=== PATIENT | male | born 1935 | race Caucasian/White ===

== ENCOUNTER 2016-05-13 14:40 | Inpatient (IN) | payer OTHER ==
[~2016-05-13] VITALS: Ht 193 cm; Wt 104.0 kg
[~2016-05-13 14:40] MED LIST: CHOL100010 PO; CYAN100T6 PO; MULTTAB58 PO
[2016-05-13] MEDS ORDERED: CHOL100027 PO (16:18)
[2016-05-13 16:47] LABS: BASO % 0.2 %; BASO ABS # 0.03 K/uL (0-0.2); COMPLETE YES; EOS % 0.2 %; HEMATOCRIT 47.5 % (42-52); IG% 0.2 %; LYMPH % 9.7 %; LYMPH ABS # 1.22 K/uL (1.2-3.4); MEAN CELL VOLUME 93.1 fL (80-100); MEAN CORPUSCULAR HEMOGLOBIN 31.4 pg (25-34); MEAN CORPUSCULAR HGB CONC 33.7 g/dl (32-36); MEAN PLATELET VOLUME 10.1 fL (7.4-10.4); MONO % 8.6 %; NEUT % 81.1 %; PLATELET COUNT 210 K/uL (130-400); WHITE BLOOD COUNT 12.61 K/uL (4.8-10.8)
[2016-05-13 16:56] LABS: PROTHROMBIN TIME (PATIENT) 11.2 SECONDS (9.0-12.0)
[2016-05-13] MEDS ORDERED: CIPROFLOXACIN 500 MG TAB PO STA (17:01)
[2016-05-13 17:06] LABS: BUN/CREATININE RATIO 8.4 (10-20); CALCIUM 9.2 mg/dl (8.5-10.1); CREATININE 2.5 mg/dl (0.60-1.40); POTASSIUM 4.4 mmol/L (3.5-5.1)
[2016-05-13] MEDS ORDERED: PIPERACILLIN/TAZOBACTAM 4.5 GM/100ML D5W IV STA ×2 (18:06→18:53)
--- NOTE | 2016-05-13 18:20 | EMERGENCY ROOM VISIT NOTE ---
History Report prepared by Ludwig: Corbin Juarez Under the Supervision of: Dr. Waldemar Moore M.D. First contact with patient: 14:54 Chief Complaint: UNABLE TO VOID Stated Complaint: UNABLE TO URINATE History of Present Illness The patient is a 80 year old male who presents to the Emergency Room with complaints of persistent lower abdominal pain and distention starting today. The patient has a Richard catheter in place due to an enlarged prostate. Today, the catheter became blocked. Upon arrival to the Emergency Room, he was found to have minimal bloody urine in the bag. He currently only complains of abdominal pain and distention. Pt denies LOC, headache, fevers, chills, diaphoresis, visual changes, neck pain, chest pain, breathing difficulties, nausea, vomiting, back pain, melena, hematochezia, numbness, weakness, lymphadenopathy, rash, or other complaints. Source of History: patient Onset: today Position: abdomen (lower) Quality: other (distention) Timing: other (persistent) Review of Systems See HPI for pertinent positives and negatives. A total of ten systems were reviewed and were otherwise negative. 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 Social History Smoking Status: Never Smoker Alcohol Use: none Drug Use: none Marital Status: Housing Status: lives with family Occupation Status: retired Current/Historical Medications Scheduled Cholecalciferol (Vitamin D 1000 Unit), 1,000 INTER.UNIT PO DAILY Cyanocobalamin (Vitamin B12 100 Mcg), 100 MCG PO DAILY Multiple Vitamin (Multivitamin), 1 TAB PO DAILY Allergies Coded Allergies: No Known Allergies (Unverified , 06/30/15) Physical Exam Vital Signs Date Time Temp Pulse Resp B/P Pulse Ox O2 Delivery O2 Flow Rate FiO2 05/13/16 17:24 96 20 176/109 96 Room Air 05/13/16 16:33 95 16 168/111 98 05/13/16 14:50 36.9 124 18 190/111 94 Physical Exam GENERAL: Awake, alert, uncomfortable-appearing, in no distress HENT: Normocephalic, atraumatic. Oropharynx unremarkable. EYES: Normal conjunctiva. Sclera non-icteric. NECK: Supple. No nuchal rigidity. FROM. No JVD. RESPIRATORY: Clear to auscultation. CARDIAC: Borderline tachycardic rate, normal rhythm. Extremities warm and well perfused. Pulses equal. ABDOMEN: Soft. Distended. No tenderness to palpation. No rebound or guarding. No masses. : Richard catheter in place. MUSCULOSKELETAL: Chest examination reveals no tenderness. The back is symmetrical on inspection without obvious abnormality. There is no CVA tenderness to palpation. No joint edema. LOWER EXTREMITIES: Calves are equal size bilaterally and non-tender. No edema. No discoloration. NEURO: Normal sensorium. No sensory or motor deficits noted. SKIN: No rash or jaundice noted. Medical Decision & Procedures Laboratory Results 05/13/16 16:25 Red Blood Count 5.10, Mean Corpuscular Volume 93.1, Mean Corpuscular Hemoglobin 31.4, Mean Corpuscular Hemoglobin Concent 33.7, Mean Platelet Volume 10.1, Neutrophils (%) (Auto) 81.1, Lymphocytes (%) (Auto) 9.7, Monocytes (%) (Auto) 8.6, Eosinophils (%) (Auto) 0.2, Basophils (%) (Auto) 0.2, Neutrophils # (Auto) 10.23, Lymphocytes # (Auto) 1.22, Monocytes # (Auto) 1.09, Eosinophils # (Auto) 0.02, Basophils # (Auto) 0.03 05/13/16 16:25 Test 05/13/16 16:25 White Blood Count 12.61 K/uL (4.8-10.8) Red Blood Count 5.10 M/uL (4.7-6.1) Hemoglobin 16.0 g/dL (14.0-18.0) Hematocrit 47.5 % (42-52) Mean Corpuscular Volume 93.1 fL (80-100) Mean Corpuscular Hemoglobin 31.4 pg (25-34) Mean Corpuscular Hemoglobin Concent 33.7 g/dl (32-36) Platelet Count 210 K/uL (130-400) Mean Platelet Volume 10.1 fL (7.4-10.4) Neutrophils (%) (Auto) 81.1 % Lymphocytes (%) (Auto) 9.7 % Monocytes (%) (Auto) 8.6 % Eosinophils (%) (Auto) 0.2 % Basophils (%) (Auto) 0.2 % Neutrophils # (Auto) 10.23 K/uL (1.4-6.5) Lymphocytes # (Auto) 1.22 K/uL (1.2-3.4) Monocytes # (Auto) 1.09 K/uL (0.11-0.59) Eosinophils # (Auto) 0.02 K/uL (0-0.5) Basophils # (Auto) 0.03 K/uL (0-0.2) RDW Standard Deviation 42.8 fL (36.4-46.3) RDW Coefficient of Variation 12.5 % (11.5-14.5) Immature Granulocyte % (Auto) 0.2 % Immature Granulocyte # (Auto) 0.02 K/uL (0.00-0.02) Prothrombin Time 11.2 SECONDS (9.0-12.0) Prothromb Time International Ratio 1.0 (0.9-1.1) Activated Partial Thromboplast Time 27.0 SECONDS (21.0-31.0) Partial Thromboplastin Ratio 1.0 Anion Gap 8.0 mmol/L (3-11) Est Creatinine Clear Calc Drug Dose 28.4 ml/min Estimated GFR () 26.9 Estimated GFR (Non- 23.2 BUN/Creatinine Ratio 8.4 (10-20) Calcium Level 9.2 mg/dl (8.5-10.1) Total Bilirubin 0.8 mg/dl (0.2-1) Direct Bilirubin 0.2 mg/dl (0-0.2) Aspartate Amino Transf (AST/SGOT) 23 U/L (15-37) Alanine Aminotransferase (ALT/SGPT) 27 U/L (12-78) Alkaline Phosphatase 83 U/L (45-117) Total Protein 7.6 gm/dl (6.4-8.2) Albumin 3.6 gm/dl (3.4-5.0) Laboratory results reviewed by ks ED Course 1454: The patient was evaluated in room B03B. A complete history and physical exam was performed. 1515: The patient is having catheter irrigated by nursing staff. There are fairly thick clots and red blood/urine being expressed. The patient feels significantly better. 1600: The nursing staff initiated CBI, urine is finally starting to clear. The patient is feeling better. 1624: I reevaluated the patient who does not want to be hospitalized. 1658: I discussed the patient's case with EVERARDO Matias urology with [facility]. She will arrange an appointment for him at the clinic. 1701: Cipro Tab 500 mg PO Medical Decision Triage Nursing notes reviewed. The patient's presentation and history were concerning for hematuria and inability to void. Etiologies such as UTI, catheter malfunction, malignancy, renal insufficiency, infection, obstruction, renal colic, aortic pathology, i as well as others were entertained. The patient was evaluated. He was very uncomfortable. His catheter was irrigated. He had significant hematuria present. With removal of clots by nursing he felt significantly better. His discomfort resolved. The patient had a urinalysis and blood work ordered. He had a slight leukocytosis. Chem panel was unremarkable. The patient had a larger catheter placed as he was climbing off the smaller catheter. He underwent continuous bladder irrigation and was doing relatively well with this. Patient was given a dose of oral Cipro. Cultures were reviewed and he was also given a dose of IV Zosyn. The patient did not want stay in the hospital. I did consult with urology to possibly set up a follow-up appointment although the patient would be best served by staying. I had case management and nursing to eat with the patient after I did to try and help him get assistance with his at home. That is his concern about staying. There is no one to take care of her. This process is currently underway. His disposition will be dependent upon case management success with care of his . His case was signed out to Dr. Singletary at the change of shift. The chart was completed utilizing [employer] Speech voice recognition software. Grammatical errors, random word insertions, pronoun errors, and incomplete sentences are an occasional consequence of this system due to software limitations, ambient noise, and hardware issues. Any formal questions or concerns about the content, text, or information contained within the body of this dictation should be directly addressed to the physician for clarification. Consults Time Called: 1624 Consulting Physician: EVERARDO Matias urology with [facility] Returned Call: 1658 I discussed the patient's case with EVERARDO Matias urology with [facility]. She will arrange an appointment for him at the clinic. Impression Primary Impression: Urinary retention Additional Impression: Hematuria Scribe Attestation The scribe's documentation has been prepared under my direction and personally reviewed by me in its entirety. I confirm that the note above accurately reflects all work, treatment, procedures, and medical decision making performed by me. Departure Information Dispostion Still a Patient Referrals No Doctor, Assigned (PCP) Patient Instructions My [facility] Problem Qualifiers
[2016-05-13 19:17] LABS: MANUAL MICROSCOPIC REQUIRED? YES; URINE APPEARANCE TURBID (CLEAR); URINE BILIRUBIN NEG (NEG); URINE COLOR RED; URINE NITRITE NEG (NEG); URINE PH 6.5 (4.5-7.5); UROBILINOGEN NEG (NEG)
[2016-05-13 19:18] LABS: REVIEW REQ? NO
[2016-05-13 19:22] LABS: URINE BACTERIA NEG (NEG); URINE RBC >30 /hpf (0-4)
--- NOTE | 2016-05-13 20:11 | EMERGENCY ROOM VISIT NOTE ---
ED Visit Note First contact with patient: 18:52 I received this patient at change of shift signout from Dr. ZIMMERMAN. Please see his note for complete history and physical. The patient is an 80-year-old male who presented to the emergency department with severe hematuria. He had continuous bladder irrigation started by the previous physician. He was reevaluated multiple times. He continued to have significant hematuria. His case was discussed with the on-call urologist. They've recommended continuous bladder irrigation. The patient doesn't a history of previous urine infections which are very resistant to all antibiotics. The patient was started on IV Zosyn in the emergency department. He was reevaluated multiple times. He was felt to be a candidate for inpatient admission and management however he was very concerned because his significant other would need help. Utilizing the emergency Department spring encaser the patient's significant other was able to get home health and nursing to come and help with her activities. I discussed the patient's case with the on-call [facility] hospitalist group. They've agreed to evaluate the patient in emergency department for further management and disposition.
[2016-05-13] MEDS ORDERED: ALUMINUM/MAGNESIUM/SIMETH (MAALOX MAX) 30 ML UDC PO PRN (20:30)
[2016-05-13] MEDS ORDERED: ONDANSETRON INJ 2 MG/ML 2 ML VIAL IV PRN (20:30)
[2016-05-13] MEDS ORDERED: PNEUMOCOCCAL POLYSACCHARIDES 25 MCG/0.5 ML VIAL/SYR IM. ONE (20:30)
[2016-05-13] MEDS ORDERED: INFLUENZA VIRUS QUAD VACCINE 0.5 ML SYR IM. ONE (20:30)
[2016-05-13] MEDS ORDERED: MAGNESIUM HYDROXIDE SUSP 30 ML UDC PO PRN (20:30)
[2016-05-13] MEDS ORDERED: NITROGLYCERIN 0.4 MG SL PER TAB CHARGE SL PRN (20:30)
[2016-05-13] MEDS ORDERED: PNEUMOCOCCAL ADMINISTRATION CHARGE ONE (20:31)
[2016-05-13] MEDS ORDERED: INFLUENZA ADMINISTRATION CHARGE ONE (20:31)
[2016-05-13 21:43] VITALS: Ht 193 cm; Wt 104.0 kg
[2016-05-13 22:10] VITALS: BP 154/84; PULSE 93; TEMP 36.7; O2SAT 94
--- NOTE | 2016-05-13 22:15 | History and Physical ---
History & Physical Date & Time of Service: May 13, 2016 at 22:05 Chief Complaint: Hematuria Primary Care Physician: No Doctor, Assigned History of Present Illness Source: patient This is an 80 yo m that is presenting to us with hematuria and urinary retention with grullon. He states that because of his BPH he has arranged with a Rich RN to come in on a monthly basis to have a grullon changed. He states he has been on no medications for his BPH and does not follow with a PCP or urologist. [facility] He states that Yesterday her started to have some hematuria and this morning it worsened as well as urinary retention and lower abdominal pain. He was seen in the ED and the grullon was clogged because of clots. Uroology was contacted and a CBI was started. It was decided that patient would be admitted for further evaluation. He mentioned repeatedly that he has a that he completely cares for because of a brain tumor. He has a lot of concerns about being in the hospital because of no one being able to care for her. Case management was able to arrange some home health. 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 Social History Smoking Status: Never Smoker Smokeless Tobacco Use: No Alcohol Use: none Drug Use: none Marital Status: Housing status: lives with family Occupational Status: retired Immunizations History of Influenza Vaccine: No History of Tetanus Vaccine?: No History of Pneumococcal: Yes Pneumococcal Date: August 28, 2009 History of Hepatitis B Vaccine: No Allergies Coded Allergies: No Known Allergies (Unverified , 06/30/15) Home Medications Scheduled Cholecalciferol (Vitamin D 1000 Unit), 1,000 INTER.UNIT PO DAILY Cyanocobalamin (Vitamin B12 100 Mcg), 100 MCG PO DAILY Multiple Vitamin (Multivitamin), 1 TAB PO DAILY Review of Systems Constitutional: No fever Eyes: No worsening of vision ENT: No hearing loss Respiratory: No cough, No dyspnea at rest, No dyspnea on exertion, No shortness of breath, No sputum, No wheezing Cardiovascular: No chest pain Abdomen: No constipation, No diarrhea, No nausea, No pain, No vomiting Musculoskeletal: No joint pain, No muscle pain Genitourinary - Male: + hematuria, + urinary retention Neurologic: No balance problems, No numbness/tingling, No weakness Psychiatric: No depression symptoms Endocrine: No fatigue Integumentary: No rash Physical Exam Vital Signs Date Time Temp Pulse Resp B/P Pulse Ox O2 Delivery O2 Flow Rate FiO2 05/13/16 21:43 Room Air 05/13/16 21:14 78 20 134/82 96 Room Air 05/13/16 19:00 77 20 130/82 96 Room Air 05/13/16 18:26 78 20 113/92 96 Room Air 05/13/16 17:24 96 20 176/109 96 Room Air 05/13/16 16:33 95 16 168/111 98 05/13/16 14:50 36.9 124 18 190/111 94 General Appearance: WD/WN, no apparent distress Head: normocephalic, atraumatic Eyes: normal inspection ENT: normal ENT inspection Neck: supple Respiratory/Chest: lungs clear, normal breath sounds, no respiratory distress, no accessory muscle use Cardiovascular: regular rate, rhythm, no murmur Abdomen/GI: normal bowel sounds, non tender, soft Back: normal inspection Extremities/Musculoskelatal: no calf tenderness, no pedal edema Neurologic/Psych: alert, normal mood/affect, oriented x 3 Skin: normal color, warm/dry, + rash Lymphatic: no adenopathy Diagnostics Laboratory Results Results Past 24 Hours Test 05/13/16 16:25 05/13/16 17:35 Range/Units White Blood Count 12.61 4.8-10.8 K/uL Red Blood Count 5.10 4.7-6.1 M/uL Hemoglobin 16.0 14.0-18.0 g/dL Hematocrit 47.5 42-52 % Mean Corpuscular Volume 93.1 80-100 fL Mean Corpuscular Hemoglobin 31.4 25-34 pg Mean Corpuscular Hemoglobin Concent 33.7 32-36 g/dl Platelet Count 210 130-400 K/uL Mean Platelet Volume 10.1 7.4-10.4 fL Neutrophils (%) (Auto) 81.1 % Lymphocytes (%) (Auto) 9.7 % Monocytes (%) (Auto) 8.6 % Eosinophils (%) (Auto) 0.2 % Basophils (%) (Auto) 0.2 % Neutrophils # (Auto) 10.23 1.4-6.5 K/uL Lymphocytes # (Auto) 1.22 1.2-3.4 K/uL Monocytes # (Auto) 1.09 0.11-0.59 K/uL Eosinophils # (Auto) 0.02 0-0.5 K/uL Basophils # (Auto) 0.03 0-0.2 K/uL RDW Standard Deviation 42.8 36.4-46.3 fL RDW Coefficient of Variation 12.5 11.5-14.5 % Immature Granulocyte % (Auto) 0.2 % Immature Granulocyte # (Auto) 0.02 0.00-0.02 K/uL Prothrombin Time 11.2 9.0-12.0 SECONDS Prothromb Time International Ratio 1.0 0.9-1.1 Activated Partial Thromboplast Time 27.0 21.0-31.0 SECONDS Partial Thromboplastin Ratio 1.0 Sodium Level 144 136-145 mmol/L Potassium Level 4.4 3.5-5.1 mmol/L Chloride Level 111 98-107 mmol/L Carbon Dioxide Level 25 21-32 mmol/L Anion Gap 8.0 3-11 mmol/L Blood Urea Nitrogen 21 7-18 mg/dl Creatinine 2.50 0.60-1.40 mg/dl Est Creatinine Clear Calc Drug Dose 28.4 ml/min Estimated GFR () 26.9 Estimated GFR (Non- 23.2 BUN/Creatinine Ratio 8.4 10-20 Random Glucose 92 70-99 mg/dl Calcium Level 9.2 8.5-10.1 mg/dl Total Bilirubin 0.8 0.2-1 mg/dl Direct Bilirubin 0.2 0-0.2 mg/dl Aspartate Amino Transf (AST/SGOT) 23 15-37 U/L Alanine Aminotransferase (ALT/SGPT) 27 12-78 U/L Alkaline Phosphatase 83 45-117 U/L Total Protein 7.6 6.4-8.2 gm/dl Albumin 3.6 3.4-5.0 gm/dl Urine Color RED Urine Appearance TURBID CLEAR Urine pH 6.5 4.5-7.5 Urine Specific [place] 1.020 1.000-1.030 Urine Protein 2+ NEG Urine Glucose (UA) NEG NEG Urine Ketones NEG NEG Urine Occult Blood 3+ NEG Urine Nitrite NEG NEG Urine Bilirubin NEG NEG Urine Urobilinogen NEG NEG Urine Leukocyte Esterase TRACE NEG Urine RBC >30 0-4 /hpf Urine WBC 1-5 0-5 /hpf Urine Epithelial Cells 0-5 0-5 /lpf Urine Bacteria NEG NEG Microbiology Results 05/13/16 Urine Culture, Received Pending Impression Assessment and Plan This is an 80 yo m with chronic grullon use that is presenting to us with hematuria Hematuria secondary to malignancy vs trauma - CBI cont'd - med surg admission - HH q 6 - consult urology - renal USG - follow BMP - NPO after midnight Leukocytosis potentially secondary to stress response - repeat CBC in am BPH - Urology has been consulted DVT Prophylaxis SCD FULL CODE Advanced Directives Existing Living Will: No Existing Power of Nnp: No Resuscitation Status FULL RESUSCITATION VTE Prophylaxis VTE Risk Assessment Done? Y/N: Yes Risk Level: Moderate Given or contraindicated: SCD's Social Service Consult None Apply Note Total Time: Critical Care 30 - 74 minutes Assessment and Plan Attending Addendum: I have physically seen and examined this patient, have directed their medical care, have supervised the medical residents activities, and agree with the H&P as noted above, with the following changes: NONE The patient is awake, well-developed and adequately nourished, alert and oriented 3, normocephalic and atraumatic, lying in bed and in no acute distress. HEENT--PERRL, EOMI, mucous membranes and oropharynx moist. Neck--supple, no JVD or bruits, thyroid normal, trachea midline, no adenopathy. Heart--normal S1 and S2, no extra beats, no murmurs, rubs or gallops. Lungs--clear bilaterally with good air movement, no respiratory distress, no accessory muscle use. Abdomen--normal bowel sounds and soft, nontender and nondistended, no hernias or masses, no organomegaly. Extremities--no cyanosis, clubbing or edema. There are good distal pulses b/l. Dermatologic--normal skin turgor, normal color, warm and dry, no abnormal lymph nodes, no rash. Neurologic--cranial nerves II through XII grossly intact, motor and sensory examination normal. Rheumatologic--normal range of motion, nontender, muscles and joints. Urologic--Grullon catheter draining wandy blood. Psychiatric--normal affect. Assessment and Plan: Gross hematuria/ renal insufficiency/BPH/history of bladder neck obstruction/ chronic indwelling Grullon catheter--the patient will be admitted to the medical surgical floor for continuous bladder irrigation. Due to elevated white blood cell count, the patient will be placed on Zosyn IV. [facility], and visiting nurses through [place]. He would like to establish with a local urologist, we'll therefore consult Dr. Bill and the urologic group. He'll be kept nothing by mouth after midnight for any potential procedure such as cystoscopy that they may want to perform. Renal insufficiency repeat CBCD, BMP and magnesium in the a.m.
[2016-05-13 23:27] VITALS: BP 125/75; PULSE 101; TEMP 36.7; O2SAT 94
[2016-05-14] VITALS (9 sets, daily range): BP systolic 103–129; BP diastolic 56–74; PULSE 69–81; TEMP 36.7–37.2; O2SAT 93–99
[2016-05-14 01:21] LABS: CKMB/CK RATIO 2.4 (0-3.0)
[2016-05-14] MEDS: SODIUM CHLORIDE 0.9% 1000ML 1,000 ML IV SCH ×3 (02:45→19:01)
[2016-05-14] MEDS ORDERED: NURSING VERBAL MED ORDER ONE (02:45)
[2016-05-14 03:08] LABS: MEAN CELL VOLUME 93.6 fL (80-100); MEAN CORPUSCULAR HGB CONC 33.2 g/dl (32-36); MEAN PLATELET VOLUME 9.8 fL (7.4-10.4); PLATELET COUNT 203 K/uL (130-400); RED BLOOD COUNT 4.06 M/uL (4.7-6.1); WHITE BLOOD COUNT 13.21 K/uL (4.8-10.8)
[2016-05-14 03:24] LABS: BUN/CREATININE RATIO 9.5 (10-20); CALCIUM 8.1 mg/dl (8.5-10.1); CREATININE 2.4 mg/dl (0.60-1.40); POTASSIUM 4.5 mmol/L (3.5-5.1)
[2016-05-14 03:34] LABS: ALB/GLOB RATIO 0.9 (0.9-2)
--- NOTE | 2016-05-14 06:42 | DIAGNOSTIC IMAGING REPORT ---
EXAMINATION: RENAL ULTRASOUND CLINICAL HISTORY: hematuria COMPARISON STUDY: 08/25/2009 FINDINGS: The right kidney measures 10.9 cm. The left kidney measures 10.8 cm.. There is no evidence of hydronephrosis. There is an 11 mm slightly echogenic exophytic right renal mass. A dedicated renal CT scan is recommended in follow-up. There is a 12 mm lower pole left renal cyst. There is left renal cortical thinning. The left kidney is somewhat echogenic. Evaluation the bladder is limited due to an indwelling Richard catheter. The bladder wall appears thickened and there is possible debris within the bladder. IMPRESSION : 1. No evidence of hydronephrosis 2. 11 mm slightly echogenic exophytic right renal mass. A dedicated renal CT scan is recommended in follow-up 3. Left renal cortical thinning and increased cortical echogenicity 4. Decompressed bladder secondary to a Richard catheter. Bladder wall thickening with probable debris within the bladder Electronically signed by: Rony Hopkins M.D. 05/14/2016 6:40 AM Dictated Date/Time: 05/14/2016 6:38 AM
--- NOTE | 2016-05-14 07:50 | Clinical Documentation Query ---
CLINICAL DOCUMENTATION QUERY 80 year old male who presents to the Emergency Room with complaints of persistent lower abdominal pain and distention starting today. In your clinical opinion is this patient being managed for: ( ) CKD IV ( ) Other explanation of clinical findings (Please Explain) ( x ) Unable to determine (Please Define) NOT MY PATIENT, SEND TO DR. MCKEON ( ) Need to Discuss ( ) Not Agree The medical record reflects the following clinical findings, treatment, and risk factors. Clinical Indicators: H&P states CKD unspecified. Documenting the stage of CKD will improve data integrity and will help clarify vague terms such as "renal insufficiency" or "chronic renal failure." BUN 23, Creatinine 2.40, GFR 24.4. Treatment: IVF's, CBI, daily PRP's Risk Factors: Age, BPH, Please clarify and document your clinical opinion in the progress notes and discharge summary. Terms such as "probable", "suspected", "likely", "questionable", "possible", or "still to be ruled out" are acceptable. IF IN AGREEMENT, YOU MUST DOCUMENT ABOVE DIAGNOSTIC STATEMENT IN DAILY PROGRESS NOTES AND DISCHARGE SUMMARY. This document is not part of the patient's record. Thank You, Esteban Loomis, RN [phone]
[2016-05-14 08:32] LABS: HEMATOCRIT 36.3 % (42-52); MEAN CELL VOLUME 93.3 fL (80-100); MEAN CORPUSCULAR HEMOGLOBIN 30.6 pg (25-34); MEAN CORPUSCULAR HGB CONC 32.8 g/dl (32-36); MEAN PLATELET VOLUME 9.8 fL (7.4-10.4); PLATELET COUNT 198 K/uL (130-400); RED BLOOD COUNT 3.89 M/uL (4.7-6.1); WHITE BLOOD COUNT 11.28 K/uL (4.8-10.8)
--- NOTE | 2016-05-14 08:32 | Urology Consultation ---
History General Date of Service: May 14, 2016. Chief Complaint: Urinary retention, BPH, hematuria Primary Care Physician: No Doctor, Assigned Pt seen a urologist before?: Yes If yes, why?: Dr. Cheng for retention, 4-5 years ago History of Present Illness 80 yo male here for evaluation of gross hematuria. He notes he is seen at the [facility] intermittently but has been managed with chronic grullon. He notes he does not see a regular physician. He notes he is currently managed with a chronic grullon. He had seen Dr. Pierson once then lost to follow-up. He notes he took medications for his BPH in the past but "it was too strong." His prior consult for retention and aborted TURP are noted. His sparse inpatient notes are reviewed. 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 Ness in the past. Urology consultation is requested to assist with his care. HPI - Urinary Retention Sx Patient has: + grullon, + hematuria, + urinary retention Severity: severe HPI - Hematuria Hematuria: gross Associated Symptoms: retention Imaging Imaging: Ultrasound (renal US - no hydro, questionable renal mass) Laboratory Last 24 Hours Test 05/13/16 16:25 05/13/16 17:35 05/14/16 00:34 05/14/16 00:37 White Blood Count 12.61 K/uL Red Blood Count 5.10 M/uL Hemoglobin 16.0 g/dL Hematocrit 47.5 % Mean Corpuscular Volume 93.1 fL Mean Corpuscular Hemoglobin 31.4 pg Mean Corpuscular Hemoglobin Concent 33.7 g/dl Platelet Count 210 K/uL Mean Platelet Volume 10.1 fL Neutrophils (%) (Auto) 81.1 % Lymphocytes (%) (Auto) 9.7 % Monocytes (%) (Auto) 8.6 % Eosinophils (%) (Auto) 0.2 % Basophils (%) (Auto) 0.2 % Neutrophils # (Auto) 10.23 K/uL Lymphocytes # (Auto) 1.22 K/uL Monocytes # (Auto) 1.09 K/uL Eosinophils # (Auto) 0.02 K/uL Basophils # (Auto) 0.03 K/uL RDW Standard Deviation 42.8 fL RDW Coefficient of Variation 12.5 % Immature Granulocyte % (Auto) 0.2 % Immature Granulocyte # (Auto) 0.02 K/uL Prothrombin Time 11.2 SECONDS Prothromb Time International Ratio 1.0 Activated Partial Thromboplast Time 27.0 SECONDS Partial Thromboplastin Ratio 1.0 Sodium Level 144 mmol/L Potassium Level 4.4 mmol/L Chloride Level 111 mmol/L Carbon Dioxide Level 25 mmol/L Anion Gap 8.0 mmol/L Blood Urea Nitrogen 21 mg/dl Creatinine 2.50 mg/dl Est Creatinine Clear Calc Drug Dose 28.4 ml/min Estimated GFR () 26.9 Estimated GFR (Non- 23.2 BUN/Creatinine Ratio 8.4 Random Glucose 92 mg/dl Calcium Level 9.2 mg/dl Total Bilirubin 0.8 mg/dl Direct Bilirubin 0.2 mg/dl Aspartate Amino Transf (AST/SGOT) 23 U/L Alanine Aminotransferase (ALT/SGPT) 27 U/L Alkaline Phosphatase 83 U/L Total Protein 7.6 gm/dl Albumin 3.6 gm/dl Urine Color RED Urine Appearance TURBID Urine pH 6.5 Urine Specific [place] 1.020 Urine Protein 2+ Urine Glucose (UA) NEG Urine Ketones NEG Urine Occult Blood 3+ Urine Nitrite NEG Urine Bilirubin NEG Urine Urobilinogen NEG Urine Leukocyte Esterase TRACE Urine RBC >30 /hpf Urine WBC 1-5 /hpf Urine Epithelial Cells 0-5 /lpf Urine Bacteria NEG Bedside Glucose 146 mg/dl Total Creatine Kinase 182 U/L Creatine Kinase MB 4.4 ng/ml Creatine Kinase MB Ratio 2.4 Troponin I 0.016 ng/ml Pro-B-Type Natriuretic Peptide 588 pg/ml Test 05/14/16 02:55 05/14/16 04:44 05/14/16 08:00 White Blood Count 13.21 K/uL Red Blood Count 4.06 M/uL Hemoglobin 12.6 g/dL Hematocrit 38.0 % Mean Corpuscular Volume 93.6 fL Mean Corpuscular Hemoglobin 31.0 pg Mean Corpuscular Hemoglobin Concent 33.2 g/dl RDW Standard Deviation 43.3 fL RDW Coefficient of Variation 12.7 % Platelet Count 203 K/uL Mean Platelet Volume 9.8 fL Sodium Level 142 mmol/L Potassium Level 4.5 mmol/L Chloride Level 110 mmol/L Carbon Dioxide Level 24 mmol/L Anion Gap 8.0 mmol/L Blood Urea Nitrogen 23 mg/dl Creatinine 2.40 mg/dl Est Creatinine Clear Calc Drug Dose 29.6 ml/min Estimated GFR () 28.3 Estimated GFR (Non- 24.4 BUN/Creatinine Ratio 9.5 Random Glucose 136 mg/dl Calcium Level 8.1 mg/dl Total Bilirubin 0.9 mg/dl Aspartate Amino Transf (AST/SGOT) 16 U/L Alanine Aminotransferase (ALT/SGPT) 23 U/L Alkaline Phosphatase 58 U/L Total Protein 5.9 gm/dl Albumin 2.8 gm/dl Globulin 3.1 gm/dl Albumin/Globulin Ratio 0.9 Problem List Medical Problems: (1) Hematuria Status: Acute (2) Urinary retention Status: Acute Past History BPH, renal disease, urinary tract infection Past Surgical History: other (cysto) Family History Patient reports no known family medical history. Social History Hx Tobacco Use In Past Year?: Yes Smoking: non-smoker Alcohol: no current use Marital status: Housing status: lives with family Occupation status: retired Immunizations History of Influenza Vaccine: No History of Tetanus Vaccine?: No History of Pneumococcal: Yes Pneumococcal Date: August 28, 2009 History of Hepatitis B Vaccine: No Allergies Coded Allergies: No Known Allergies (Unverified , 06/30/15) Medications Home Medications: Home Meds and Scripts Medications Dose Route/Sig Max Daily Dose Days Date Category Vitamin D 1000 Unit (Cholecalciferol) 1,000 Unit Cap 1,000 Inter.unit PO DAILY 05/13/16 Reported Vitamin B12 100 Mcg (Cyanocobalamin) 100 Mcg Tab 100 Mcg PO DAILY 10/20/13 Reported Multivitamin (Multiple Vitamin) 1 Tab Tab 1 Tab PO DAILY 01/01/13 Reported Inpatient Medications: Current Inpatient Medications Medications (Trade) Dose Ordered Sig/Clay Route Start Time Stop Time Status Last Admin Dose Admin Acetaminophen (Tylenol Tab) 650 mg Q4H PRN PO 05/13/16 20:30 06/12/16 20:29 Al Hydrox/Mg Hydrox/Simethicone (Maalox Max Susp) 15 ml Q4H PRN PO 05/13/16 20:30 06/12/16 20:29 Magnesium Hydroxide (Milk Of Magnesia Susp) 30 ml Q12H PRN PO 05/13/16 20:30 06/12/16 20:29 Ondansetron HCl (Zofran Inj) 4 mg Q6H PRN IV 05/13/16 20:30 06/12/16 20:29 Nitroglycerin (Nitrostat Tab) 0.4 mg UD PRN SL 05/13/16 20:30 06/12/16 20:29 Morphine Sulfate (MoRPHine SULFATE INJ) 2 mg Q30M PRN IV 05/13/16 20:30 05/27/16 20:29 Cholecalciferol (Vitamin D Tab) 1,000 inter.unit DAILY PO 05/14/16 09:00 06/13/16 08:59 Cyanocobalamin (Vitamin B-12 Tab) 100 mcg DAILY PO 05/14/16 09:00 06/13/16 08:59 Multivitamins 1 tab 1 tab DAILY PO 05/14/16 09:00 06/13/16 08:59 Sodium Chloride (Nss 1000ml) 1,000 ml @ 125 mls/hr Q8H IV 05/14/16 02:45 06/13/16 02:44 05/14/16 02:45 125 MLS/HR Review of Systems Review of Systems Constitutional: No chills, No fever Neurological: No numbness/tingling Gastrointestinal: No nausea, No vomiting Cardiovascular: No irregular heartbeat Respiratory: No coughing up blood Musculoskeletal: No back pain, No neck pain Blood / Lymphatic: No swollen glands Psychologic / Mental: No trouble remembering Male : + blood in urine, + urinary retention Physical Exam Vital Signs: Vital Signs Past 12 Hours Date Time Temp Pulse Resp B/P Pulse Ox O2 Delivery O2 Flow Rate FiO2 05/14/16 07:43 36.7 69 20 116/74 98 Room Air 05/14/16 04:00 Room Air 05/14/16 03:30 36.7 77 18 129/73 99 Nasal Cannula 2.0 05/14/16 00:49 78 121/73 98 Nasal Cannula 3.0 05/14/16 00:35 76 16 98 2.0 05/14/16 00:10 Room Air 05/13/16 23:27 36.7 101 18 125/75 94 Nasal Cannula 05/13/16 22:10 36.7 93 18 154/84 94 Room Air 05/13/16 21:43 Room Air 05/13/16 21:14 78 20 134/82 96 Room Air Physical Exam: General Appearance: WD/WN, no apparent distress ENT: hearing grossly normal Neck: supple, no adenopathy Respiratory/Chest: no respiratory distress, no accessory muscle use Cardiovascular: no JVD Gastrointestinal: Abdomen: normal abdomen Bladder: normal bladder Renal: normal renal Liver: normal liver Spleen: normal spleen Genitourinary - Male: Penis: normal penis Urethral Meatus: pertinent finding (grullon in place, urine light pink, rare small clots on mod CBI) Neurologic/Psychiatric: alert, oriented x 3 Skin: normal color Assessment & Plan Assessment & Plan A/P Noncompliant 80 yo male with renal failure, BPH, hematuria and retention. Past notes reviewed. It seems 7 years ago the patient was in need of a TURP and that has not changed. Will start finasteride for now, arrange for [facility] teaching in the office in [facility], arrange for cysto to confirm previous findings and likely arrange for bipolar TURP. As noted a chronic grullon is not the ideal management of his condition. Continue CBI for now. Ongoing bleeding seems to be slowing. Would avoid acute operative intervention unless significant worsening of bleeding acutely. Findings reviewed with patient who vocalizes understanding of the treatment plan. Question of a small renal lesion on US noted. Renal mass protocol CT would be inappropriate at this time due to renal failure. Will follow in future, no acute need for intervention.
[2016-05-14 08:59] LABS: BUN/CREATININE RATIO 9.6 (10-20); CALCIUM 7.8 mg/dl (8.5-10.1); CREATININE 2.5 mg/dl (0.60-1.40); POTASSIUM 4.5 mmol/L (3.5-5.1)
[2016-05-14] MEDS: CYANOCOBALAMIN 100 MCG TAB (VIT B-12) PO SCH (09:11)
[2016-05-14] MEDS: MULTIVITAMIN TAB PO SCH (09:11)
[2016-05-14] MEDS: CHOLECALCIFEROL 1000 INTER.UNIT TAB PO SCH (09:11)
[2016-05-14] MEDS: FINASTERIDE 5 MG TAB PO SCH (09:15)
--- NOTE | 2016-05-14 12:00 | ECHOCARDIOGRAM REPORT ---
*NOTICE TO RECEIVING [employer] This information is strictly Confidential and protected under [place] law. [place] law prohibits you from making any further disclosure of this information unless further disclosure is expressly permitted by the written consent of the person to whom it pertains or is authorized by law. A general authorization for the release of medical or other information is not sufficient for this purpose. Hospital accepts no responsibility if the information is made available to any other person, INCLUDING THE PATIENT. Interpretation Summary * Name: JOSÉ MIGUEL DUNAWAY Study Date: 05/14/2016 07:03 AM BP: 116/74 mmHg * Patient Location: C.2T\S\E222\S\1 HR: 69 * : 1935 (M/d/yyyy) Gender: Male Height: 76 in * Age: 80 yrs Ethnicity: [place] Weight: 218 lb * Ordering Physician: Zina Tobar * Referring Physician: RENARD * Performed By: Natalie Ma RDCS * * Reason For Study: SYNCOPE * BSA: 2.3 m2 * History: SYNCOPE * Hyperdynamic left ventricular systolic function. * Moderate concentric left ventricular hypertrophy. * Left ventricular diastolic dysfunction. * Mild left atrial dilatation. * No significant valve abnormalities. * No cardiac source of emboli noted. Procedure Details * A contrast injection of Definity was performed to improve assessment of LV function. * Contrast was injected into an intravenous site in the left arm. * One vial of Definity ultrasound contrast was diluted in normal saline to a total volume of 10 ml. A total of '2' ml of solution was administered during imaging. * Lot # [id number] of Definity utilized for procedure. * Expiration date APR 21. * The attending nurse who injected the contrast agent was CHALINO HOWE RN. Left Ventricle * The left ventricle is normal in size. * There is moderate concentric left ventricular hypertrophy. * Ejection Fraction = >70 %. * A full diastolic examination was done with clinical findings of Class I diastolic dysfunction. * The left ventricle is hyperdynamic. * No regional wall motion abnormalities noted. Right Ventricle * The right ventricle is normal in size and function. Atria * The left atrium is mildly dilated. * Right atrial size is normal. * No ASD detected; PFO is not assessed. Mitral Valve * The mitral valve is normal. * There is no mitral valve stenosis. * There is no mitral regurgitation noted. Tricuspid Valve * The tricuspid valve is not well visualized. * Significant tricuspid regurgitation is absent. Aortic Valve * The aortic valve is trileaflet. * The aortic valve opens well. * Aortic stenosis is absent. * No aortic regurgitation is present. Pulmonic Valve * The pulmonic valve is not well visualized. * There is no pulmonic valvular stenosis. * Trace pulmonic valvular regurgitation. Great Vessels * The aortic root is normal size. MMode 2D Measurements and Calculations IVSd 1.8 cm IVSs 2.1 cm LVIDd 3.8 cm LVIDs 2.3 cm LVPWd 1.8 cm LVPWs 2.4 cm IVS/LVPW 0.98 FS 40.3 % EDV(Teich) 62.1 ml ESV(Teich) 17.6 ml EF(Teich) 71.7 % EDV(cubed) 55.0 ml ESV(cubed) 11.7 ml EF(cubed) 78.7 % % IVS thick 15.5 % % LVPW thick 30.1 % LV mass(C)d 292.2 grams LV mass(C)dI 127.2 grams/m\S\2 LV mass(C)s 240.5 grams LV mass(C)sI 104.7 grams/m\S\2 SV(Teich) 44.5 ml SI(Teich) 19.4 ml/m\S\2 SV(cubed) 43.3 ml SI(cubed) 18.8 ml/m\S\2 Ao root diam 3.6 cm Ao root area 10.4 cm\S\2 LA dimension 4.3 cm LA/Ao 1.2 LVAd ap4 27.6 cm\S\2 LVLd ap4 7.8 cm EDV(MOD-sp4) 79.5 ml LVAs ap4 15.0 cm\S\2 LVLs ap4 6.9 cm ESV(MOD-sp4) 29.5 ml EF(MOD-sp4) 62.9 % LVAd ap2 34.6 cm\S\2 LVLd ap2 9.1 cm EDV(MOD-sp2) 109.0 ml LVAs ap2 15.7 cm\S\2 LVLs ap2 6.9 cm ESV(MOD-sp2) 31.4 ml EF(MOD-sp2) 71.2 % SV(MOD-sp4) 50.0 ml SI(MOD-sp4) 21.8 ml/m\S\2 SV(MOD-sp2) 77.6 ml SI(MOD-sp2) 33.8 ml/m\S\2 Doppler Measurements and Calculations MV E max sylvester 52.4 cm/sec MV A max sylvester 87.3 cm/sec MV E/A 0.60 MV dec time 0.32 sec Ao V2 max 122.7 cm/sec Ao max PG 6.0 mmHg Ao max PG (full) 1.9 mmHg LV V1 max PG 4.2 mmHg LV V1 max 101.9 cm/sec
[2016-05-14 12:34] LABS: HEMATOCRIT 34.5 % (42-52)
[2016-05-14 16:48] LABS: HEMATOCRIT 32.3 % (42-52)
[2016-05-14 20:30] LABS: HEMATOCRIT 30.6 % (42-52)
[2016-05-15] VITALS (11 sets, daily range): BP systolic 136–190; BP diastolic 65–89; PULSE 77–101; TEMP 36.7–36.9; O2SAT 94–97
[2016-05-15] MEDS: SODIUM CHLORIDE 0.9% 1000ML 1,000 ML IV SCH (03:05)
[2016-05-15 07:10] LABS: HEMATOCRIT 30.4 % (42-52); MEAN CELL VOLUME 93.5 fL (80-100); MEAN CORPUSCULAR HEMOGLOBIN 31.4 pg (25-34); MEAN CORPUSCULAR HGB CONC 33.6 g/dl (32-36); MEAN PLATELET VOLUME 9.5 fL (7.4-10.4); PLATELET COUNT 156 K/uL (130-400); RED BLOOD COUNT 3.25 M/uL (4.7-6.1)
[2016-05-15] MEDS: CYANOCOBALAMIN 100 MCG TAB (VIT B-12) PO SCH (07:35)
[2016-05-15] MEDS: MULTIVITAMIN TAB PO SCH (07:35)
[2016-05-15] MEDS: CHOLECALCIFEROL 1000 INTER.UNIT TAB PO SCH (07:35)
[2016-05-15] MEDS: FINASTERIDE 5 MG TAB PO SCH (07:35)
[2016-05-15 07:41] LABS: BUN/CREATININE RATIO 9.9 (10-20); CALCIUM 7.7 mg/dl (8.5-10.1); CREATININE 2.2 mg/dl (0.60-1.40); POTASSIUM 4.1 mmol/L (3.5-5.1)
--- NOTE | 2016-05-15 08:09 | Progress Note ---
Subjective Date of Service: May 14, 2016. Subjective late addendum -- pt seen 05/14 - accidentally did not include progress note feeling ok - no chest pain no lightheaded no dizzy ongoing hematuria - clears w CBI, thickens and reddens as soon as slows Problem List Medical Problems: (1) Hematuria Status: Acute (2) Urinary retention Status: Acute Review of Systems Constitutional: No fatigue, No weakness Cardiac: No problem reported ros otherwise negative except for as above Objective Vital Signs Date Time Temp Pulse Resp B/P Pulse Ox O2 Delivery O2 Flow Rate FiO2 05/15/16 04:00 94 Room Air 05/15/16 03:27 36.8 77 20 136/65 94 Room Air 05/14/16 23:59 94 Room Air 05/14/16 22:49 36.9 81 20 103/56 94 Room Air 05/14/16 20:00 Room Air 05/14/16 19:47 36.9 79 20 112/60 93 Room Air 05/14/16 16:00 Room Air 05/14/16 15:29 37.2 79 20 120/64 94 Room Air 05/14/16 12:00 Room Air 05/14/16 11:41 36.8 79 16 129/67 95 Room Air Physical Exam General Appearance: no apparent distress Eyes: EOMI ENT: hearing grossly normal Neck: trachea midline Respiratory/Chest: no respiratory distress, no accessory muscle use Extremities: normal range of motion 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, alert Skin: normal color, warm/dry Laboratory Results Last 24 Hours Test 05/14/16 12:28 05/14/16 16:05 05/14/16 20:20 05/15/16 06:54 Hemoglobin 11.4 g/dL 10.6 g/dL 10.0 g/dL 10.2 g/dL Hematocrit 34.5 % 32.3 % 30.6 % 30.4 % White Blood Count 9.40 K/uL Red Blood Count 3.25 M/uL Mean Corpuscular Volume 93.5 fL Mean Corpuscular Hemoglobin 31.4 pg Mean Corpuscular Hemoglobin Concent 33.6 g/dl RDW Standard Deviation 44.4 fL RDW Coefficient of Variation 12.9 % Platelet Count 156 K/uL Mean Platelet Volume 9.5 fL Sodium Level 145 mmol/L Potassium Level 4.1 mmol/L Chloride Level 115 mmol/L Carbon Dioxide Level 22 mmol/L Anion Gap 8.0 mmol/L Blood Urea Nitrogen 22 mg/dl Creatinine 2.20 mg/dl Est Creatinine Clear Calc Drug Dose 32.3 ml/min Estimated GFR () 31.4 Estimated GFR (Non- 27.1 BUN/Creatinine Ratio 9.9 Random Glucose 111 mg/dl Calcium Level 7.7 mg/dl Test 05/15/16 08:00 Assessment and Plan hematuria -grullon trauma vs bladder mass -CBI -cysto hopefully as outpt (vs as inpt if doesn't clear) acute blood loss anemia -from hematuria -follow, asymptomatic CKD ?stage 3-4 -?uncertain baseline BPH/chronic urinary retention -chronic grullon DVT proph -pharmacologic contraindicated due to bleeding
--- NOTE | 2016-05-15 10:43 | Progress Note ---
Progress Note Patient's afebrile vital signs are stable Currently sleeping in bed Richard catheter is patent Urine is clear with CBI Hematocrit 30.4 creatinine 2.4 Assessment #1 gross hematuria Hematuria has cleared with CBI Continue it for 24 more hours to make sure there is no recurrence of the bleeding
--- NOTE | 2016-05-15 18:55 | Progress Note ---
Subjective Date of Service: May 15, 2016. Subjective Pt evaluation today including: conversation w/ patient, physical exam, chart review, lab review, review of inpatient medication list identical hx to yesterday - feels fine but whenever CBI slows down urine more red no cp no sob no lightheaded Problem List Medical Problems: (1) Hematuria Status: Acute (2) Urinary retention Status: Acute Review of Systems Constitutional: No fatigue, No weakness Cardiac: No problem reported ros otherwise negative except for as above Objective Vital Signs Date Time Temp Pulse Resp B/P Pulse Ox O2 Delivery O2 Flow Rate FiO2 05/15/16 16:23 88 174/85 155/81 05/15/16 16:00 Room Air 05/15/16 15:39 101 05/15/16 15:34 190/67 05/15/16 14:17 172/89 05/15/16 12:41 36.7 99 16 169/87 94 Room Air 05/15/16 12:35 36.8 81 16 97 05/15/16 10:16 97 Room Air 05/15/16 08:08 36.8 81 16 148/78 97 Room Air 05/15/16 04:00 94 Room Air 05/15/16 03:27 36.8 77 20 136/65 94 Room Air 05/14/16 23:59 94 Room Air 05/14/16 22:49 36.9 81 20 103/56 94 Room Air 05/14/16 20:00 Room Air 05/14/16 19:47 36.9 79 20 112/60 93 Room Air Physical Exam General Appearance: no apparent distress Eyes: EOMI ENT: hearing grossly normal Neck: trachea midline Respiratory/Chest: no respiratory distress, no accessory muscle use Extremities: normal range of motion 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, alert Skin: normal color, warm/dry Laboratory Results Last 24 Hours Test 05/14/16 20:20 05/15/16 06:54 Hemoglobin 10.0 g/dL 10.2 g/dL Hematocrit 30.6 % 30.4 % White Blood Count 9.40 K/uL Red Blood Count 3.25 M/uL Mean Corpuscular Volume 93.5 fL Mean Corpuscular Hemoglobin 31.4 pg Mean Corpuscular Hemoglobin Concent 33.6 g/dl RDW Standard Deviation 44.4 fL RDW Coefficient of Variation 12.9 % Platelet Count 156 K/uL Mean Platelet Volume 9.5 fL Sodium Level 145 mmol/L Potassium Level 4.1 mmol/L Chloride Level 115 mmol/L Carbon Dioxide Level 22 mmol/L Anion Gap 8.0 mmol/L Blood Urea Nitrogen 22 mg/dl Creatinine 2.20 mg/dl Est Creatinine Clear Calc Drug Dose 32.3 ml/min Estimated GFR () 31.4 Estimated GFR (Non- 27.1 BUN/Creatinine Ratio 9.9 Random Glucose 111 mg/dl Calcium Level 7.7 mg/dl Assessment and Plan hematuria -grullon trauma vs bladder mass -CBI -cysto hopefully as outpt (vs as inpt if doesn't clear) acute blood loss anemia -from hematuria -follow, asymptomatic, continues to go down CKD ?stage 3-4 -?uncertain baseline BPH/chronic urinary retention -chronic grullon DVT proph -pharmacologic contraindicated due to bleeding
[2016-05-16] MEDS: CHOLECALCIFEROL 1000 INTER.UNIT TAB PO SCH (07:33)
[2016-05-16] MEDS: FINASTERIDE 5 MG TAB PO SCH (07:34)
[2016-05-16] MEDS: MULTIVITAMIN TAB PO SCH (07:34)
[2016-05-16] MEDS: CYANOCOBALAMIN 100 MCG TAB (VIT B-12) PO SCH (07:34)
[2016-05-16 07:38] LABS: HEMATOCRIT 31.4 % (42-52); MEAN CELL VOLUME 94.3 fL (80-100); MEAN CORPUSCULAR HEMOGLOBIN 30.6 pg (25-34); MEAN CORPUSCULAR HGB CONC 32.5 g/dl (32-36); MEAN PLATELET VOLUME 10.1 fL (7.4-10.4); PLATELET COUNT 172 K/uL (130-400); RED BLOOD COUNT 3.33 M/uL (4.7-6.1); WHITE BLOOD COUNT 7.45 K/uL (4.8-10.8)
[2016-05-16 08:03] LABS: BUN/CREATININE RATIO 9.3 (10-20); CALCIUM 7.9 mg/dl (8.5-10.1); CREATININE 2.1 mg/dl (0.60-1.40); POTASSIUM 4.1 mmol/L (3.5-5.1)
[2016-05-16 08:09] VITALS: BP 163/81; PULSE 68; TEMP 36.4; O2SAT 97
--- NOTE | 2016-05-16 09:26 | Progress Note ---
Progress Note Patient's afebrile vital signs are stable He offers no complaints Says he feels actually very well Urine with minimal CBI is light pink clears up immediately if CBI is increased Hematocrit stable at 31.4 Would continue CBI for now Patient says he is going to have a TURP by Dr. Warren at some point
--- NOTE | 2016-05-16 14:58 | Progress Note ---
Subjective Date of Service: May 16, 2016. Subjective Pt evaluation today including: conversation w/ patient, physical exam, chart review, lab review, review of inpatient medication list continues to feel fine no cp no sob, no lightheadedness however, every time CBI slowed down at all, urine thickens and clots - ongoing to even when i was seeing him nursing had to flush to clear thick clots Problem List Medical Problems: (1) Hematuria Status: Acute (2) Urinary retention Status: Acute Review of Systems Respiratory: No shortness of breath Cardiac: No chest pain, No problem reported ros otherwise negative except for as above Objective Vital Signs Date Time Temp Pulse Resp B/P Pulse Ox O2 Delivery O2 Flow Rate FiO2 05/16/16 08:09 36.4 68 18 163/81 97 Room Air 05/16/16 08:00 Room Air 05/15/16 23:59 Room Air 05/15/16 23:57 36.9 78 20 168/84 97 Room Air 05/15/16 20:00 Room Air 05/15/16 16:23 88 174/85 155/81 05/15/16 16:00 Room Air 05/15/16 15:39 101 05/15/16 15:34 190/67 Physical Exam General Appearance: no apparent distress Eyes: EOMI ENT: hearing grossly normal Neck: trachea midline Respiratory/Chest: no respiratory distress, no accessory muscle use Extremities: normal range of motion 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, alert, normal mood/affect Skin: normal color, warm/dry Laboratory Results Last 24 Hours Test 05/16/16 06:50 White Blood Count 7.45 K/uL Red Blood Count 3.33 M/uL Hemoglobin 10.2 g/dL Hematocrit 31.4 % Mean Corpuscular Volume 94.3 fL Mean Corpuscular Hemoglobin 30.6 pg Mean Corpuscular Hemoglobin Concent 32.5 g/dl RDW Standard Deviation 44.9 fL RDW Coefficient of Variation 13.0 % Platelet Count 172 K/uL Mean Platelet Volume 10.1 fL Sodium Level 145 mmol/L Potassium Level 4.1 mmol/L Chloride Level 115 mmol/L Carbon Dioxide Level 23 mmol/L Anion Gap 7.0 mmol/L Blood Urea Nitrogen 20 mg/dl Creatinine 2.10 mg/dl Est Creatinine Clear Calc Drug Dose 33.9 ml/min Estimated GFR () 33.2 Estimated GFR (Non- 28.7 BUN/Creatinine Ratio 9.3 Random Glucose 100 mg/dl Calcium Level 7.9 mg/dl Assessment and Plan hematuria -grullon trauma vs bladder mass -CBI -as he continues to not clear, suspect he may need cysto while still inpt. 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 actually [facility] Cr [facility] BPH/chronic urinary retention -chronic grullon DVT proph -pharmacologic contraindicated due to bleeding
[2016-05-16 15:56] VITALS: BP 175/80; PULSE 84; TEMP 36.8; O2SAT 92
[2016-05-16 17:15] VITALS: BP_SYST 153; BP_SYST 168; BP_SYST 220; BP_DIAS 112; BP_DIAS 74; BP_DIAS 82; PULSE 108; PULSE 84
[2016-05-16 17:25] LABS: BASO % 0.3 %; BASO ABS # 0.04 K/uL (0-0.2); EOS % 1.4 %; HEMATOCRIT 33.1 % (42-52); IG% 0.5 %; LYMPH % 20.3 %; LYMPH ABS # 2.84 K/uL (1.2-3.4); MEAN CELL VOLUME 91.7 fL (80-100); MEAN PLATELET VOLUME 9.4 fL (7.4-10.4); MONO % 9.7 %; NEUT % 67.8 %; PLATELET COUNT 221 K/uL (130-400); RED BLOOD COUNT 3.61 M/uL (4.7-6.1); WHITE BLOOD COUNT 14.02 K/uL (4.8-10.8)
[2016-05-16 18:04] LABS: COMPLETE YES; MEAN CORPUSCULAR HGB CONC 33.8 g/dl (32-36)
[2016-05-16 21:02] VITALS: BP 158/97; PULSE 88; TEMP 36.8; O2SAT 96
[2016-05-16 23:54] VITALS: BP 144/74; PULSE 74; TEMP 36.6; O2SAT 96
[2016-05-17 06:25] LABS: HEMATOCRIT 28.7 % (42-52); MEAN CORPUSCULAR HEMOGLOBIN 31.1 pg (25-34); MEAN CORPUSCULAR HGB CONC 33.8 g/dl (32-36); MEAN PLATELET VOLUME 9.6 fL (7.4-10.4); PLATELET COUNT 181 K/uL (130-400); RED BLOOD COUNT 3.12 M/uL (4.7-6.1); WHITE BLOOD COUNT 9.13 K/uL (4.8-10.8)
[2016-05-17 07:01] LABS: BUN/CREATININE RATIO 9.9 (10-20); CALCIUM 8.1 mg/dl (8.5-10.1); CREATININE 2.1 mg/dl (0.60-1.40)
[2016-05-17 07:32] VITALS: BP 133/79; PULSE 67; TEMP 36.8; O2SAT 95
[2016-05-17] MEDS: FINASTERIDE 5 MG TAB PO SCH (07:39)
[2016-05-17] MEDS: CHOLECALCIFEROL 1000 INTER.UNIT TAB PO SCH (07:39)
[2016-05-17] MEDS: MULTIVITAMIN TAB PO SCH (07:39)
[2016-05-17] MEDS: CYANOCOBALAMIN 100 MCG TAB (VIT B-12) PO SCH (07:39)
--- NOTE | 2016-05-17 08:02 | Progress Note ---
Subjective Date of Service: May 17, 2016. Subjective Pt evaluation today including: conversation w/ patient, chart review, lab review Voiding: grullon catheter in place (patent, draining [place]in[place] colored urine with CBI running ) 80 yo male with gross hematuria. Hematuria persists today with CBI running. Urine is [place] colored. Pt reports the catheter clogged off multiple times yesterday when trying to d/c the CBI. He denies any pain this morning. H&H is 9.7 and 28.7 this morning. Cr remains stable at 2.10. UC&S is negative. Problem List Medical Problems: (1) Hematuria Status: Acute (2) Urinary retention Status: Acute Review of Systems Constitutional: No chills, No fever Respiratory: No shortness of breath Cardiac: No chest pain Abdomen: No nausea, No pain, No vomiting Male : + hematuria Heme: + abnormal bleeding/bruising Objective Vital Signs Date Time Temp Pulse Resp B/P Pulse Ox O2 Delivery O2 Flow Rate FiO2 05/17/16 07:32 36.8 67 20 133/79 95 Room Air 05/16/16 23:59 Room Air 05/16/16 23:54 36.6 74 20 144/74 96 Room Air 05/16/16 20:00 Room Air 05/16/16 17:15 84 168/74 108 220/112 153/82 05/16/16 16:00 Room Air 05/16/16 15:56 36.8 84 16 175/80 92 Room Air 05/16/16 08:09 36.4 68 18 163/81 97 Room Air 05/16/16 08:00 Room Air Physical Exam General Appearance: no apparent distress Eyes: normal inspection ENT: hearing grossly normal Neck: no JVD Respiratory/Chest: no respiratory distress, no accessory muscle use Cardiovascular: no JVD Extremities: normal inspection Neurologic/Psychiatric: alert, normal mood/affect, oriented x 3 Skin: normal color Laboratory Results Last 24 Hours Test 05/16/16 17:19 05/17/16 06:04 White Blood Count 14.02 K/uL 9.13 K/uL Red Blood Count 3.61 M/uL 3.12 M/uL Hemoglobin 11.2 g/dL 9.7 g/dL Hematocrit 33.1 % 28.7 % Mean Corpuscular Volume 91.7 fL 92.0 fL Mean Corpuscular Hemoglobin 31.0 pg 31.1 pg Mean Corpuscular Hemoglobin Concent 33.8 g/dl 33.8 g/dl Platelet Count 221 K/uL 181 K/uL Mean Platelet Volume 9.4 fL 9.6 fL Neutrophils (%) (Auto) 67.8 % Lymphocytes (%) (Auto) 20.3 % Monocytes (%) (Auto) 9.7 % Eosinophils (%) (Auto) 1.4 % Basophils (%) (Auto) 0.3 % Neutrophils # (Auto) 9.52 K/uL Lymphocytes # (Auto) 2.84 K/uL Monocytes # (Auto) 1.36 K/uL Eosinophils # (Auto) 0.19 K/uL Basophils # (Auto) 0.04 K/uL RDW Standard Deviation 42.8 fL 43.5 fL RDW Coefficient of Variation 12.8 % 13.0 % Immature Granulocyte % (Auto) 0.5 % Immature Granulocyte # (Auto) 0.07 K/uL Sodium Level 146 mmol/L Potassium Level 4.0 mmol/L Chloride Level 113 mmol/L Carbon Dioxide Level 23 mmol/L Anion Gap 10.0 mmol/L Blood Urea Nitrogen 21 mg/dl Creatinine 2.10 mg/dl Est Creatinine Clear Calc Drug Dose 33.9 ml/min Estimated GFR () 33.2 Estimated GFR (Non- 28.7 BUN/Creatinine Ratio 9.9 Random Glucose 105 mg/dl Calcium Level 8.1 mg/dl Assessment and Plan A/P: Gross hematuria Persistent gross hematuria. AFVSS. Continue CBI today. Hand irrigate grullon catheter PRN. Discussed with Dr. Esquivel this morning, will start 1% Alum today to run through CBI. Continue to monitor H&H. Supportive management with transfusions PRN. Will provide the pt a diet, and make him NPO after midnight in the event he needs to go to the OR tomorrow for persistent hematuria. Will continue to follow along with primary service at this time. Continued [facility] stay due to: other (persistent gross hematuria)
--- NOTE | 2016-05-17 08:32 | DIAGNOSTIC IMAGING REPORT ---
CHEST 2 VIEWS ROUTINE CLINICAL HISTORY: pre-op preoperative evaluation COMPARISON STUDY: No previous studies for comparison. FINDINGS: The bones soft tissues and hemidiaphragms are normal. The cardiomediastinal silhouette is normal. The lungs are clear. The pulmonary vasculature is normal. IMPRESSION: Negative chest. Electronically signed by: Michael Singh M.D. 05/17/2016 8:30 AM Dictated Date/Time: 05/17/2016 8:30 AM
--- NOTE | 2016-05-17 12:50 | Progress Note ---
Progress Note Patient apparently had a recurrence of his hematuria yesterday requiring frequent irrigations Today I irrigated his bladder with 4 L of sterile saline until all clot was removed and the fluid returning was as clear as water Patient was then up to a CBI 1% alum Went back and checked on the patient 30 minutes later there is still no blood in the urine urine remained crystal clear
[2016-05-17 15:06] VITALS: BP 165/85; PULSE 99; TEMP 36.7; O2SAT 93
[2016-05-17 16:30] VITALS: O2SAT 93
[2016-05-17] MEDS: AMMONIUM ALUM 30 GM in SODIUM CHLORIDE 0.9% IRRIG 3,000 ML IR SCH ×3 (16:54→19:45)
--- NOTE | 2016-05-17 17:12 | Progress Note ---
Subjective Date of Service: May 17, 2016. Subjective Pt evaluation today including: conversation w/ patient, conversation w/ family , physical exam, conversation w/ residential solar consultant (D/E Miss Rodney, recommended cystospoy tomorrow) Voiding: grullon catheter in place Problem List Medical Problems: (1) Hematuria Status: Acute (2) Urinary retention Status: Acute Review of Systems Constitutional: No chills, No fatigue, No fever, No problem reported, No see HPI, No sweats, No weakness, No weight loss Eyes: No diplopia, No discharge, No eye pain, No problem reported, No redness, No see HPI, No worsening of vision ENT: No dental problems, No hearing loss, No nasal symptoms, No problem reported, No see HPI, No sore throat, No tinnitus, No trouble swallowing, No unusual epistaxis Respiratory: No cough, No dyspnea at rest, No dyspnea on exertion, No hemoptysis, No problem reported, No see HPI, No shortness of breath, No sputum, No wheezing Cardiac: No PND, No chest pain, No claudication, No edema, No orthopnea, No palpitations, No problem reported, No see HPI Abdomen: No GI bleeding, No constipation, No diarrhea, No nausea, No pain, No problem reported, No see HPI, No vomiting Male : + hematuria Neurologic: No balance problems, No memory loss, No numbness/tingling, No paralysis, No problem reported, No see HPI, No vertigo, No weakness Psychiatric: No anhedonism, No anxiety, No depression symptoms, No insomnia, No problem reported, No see HPI, No substance abuse Skin: No bleeding, No color change, No itch, No new/changing skin lesions, No problem reported, No rash, No see HPI Medications Current Inpatient Medications Medications (Trade) Dose Ordered Sig/Clay Route Start Time Stop Time Status Last Admin Dose Admin Acetaminophen (Tylenol Tab) 650 mg Q4H PRN PO 05/13/16 20:30 06/12/16 20:29 Al Hydrox/Mg Hydrox/Simethicone (Maalox Max Susp) 15 ml Q4H PRN PO 05/13/16 20:30 06/12/16 20:29 Magnesium Hydroxide (Milk Of Magnesia Susp) 30 ml Q12H PRN PO 05/13/16 20:30 06/12/16 20:29 Ondansetron HCl (Zofran Inj) 4 mg Q6H PRN IV 05/13/16 20:30 06/12/16 20:29 Nitroglycerin (Nitrostat Tab) 0.4 mg UD PRN SL 05/13/16 20:30 06/12/16 20:29 Morphine Sulfate (MoRPHine SULFATE INJ) 2 mg Q30M PRN IV 05/13/16 20:30 05/27/16 20:29 Cholecalciferol (Vitamin D Tab) 1,000 inter.unit DAILY PO 05/14/16 09:00 06/13/16 08:59 05/17/16 07:39 1,000 INTER.UNIT Cyanocobalamin (Vitamin B-12 Tab) 100 mcg DAILY PO 05/14/16 09:00 06/13/16 08:59 05/17/16 07:39 100 MCG Multivitamins (Multivitamin Tab) 1 tab DAILY PO 05/14/16 09:00 06/13/16 08:59 05/17/16 07:39 1 TAB Finasteride 5 mg 5 mg QAM PO 05/14/16 09:00 06/13/16 08:59 05/17/16 07:39 5 MG Aluminum Ammonium Sulfate/Sodium Chloride (Alum/Sodium Chloride 0.9% Irrig) 3,000 ml @ 0 mls/hr UD IR 05/17/16 08:30 06/16/16 08:29 05/17/16 16:54 3,000 MLS/HR Objective Vital Signs Date Time Temp Pulse Resp B/P Pulse Ox O2 Delivery O2 Flow Rate FiO2 05/17/16 16:30 93 Room Air 05/17/16 15:06 36.7 99 20 165/85 93 Room Air 05/17/16 08:00 Room Air 05/17/16 07:32 36.8 67 20 133/79 95 Room Air 05/16/16 23:59 Room Air 05/16/16 23:54 36.6 74 20 144/74 96 Room Air 05/16/16 20:00 Room Air 05/16/16 17:15 84 168/74 108 220/112 153/82 Physical Exam General Appearance: no apparent distress Eyes: normal inspection, EOMI ENT: normal ENT inspection, hearing grossly normal Neck: supple Respiratory/Chest: chest non-tender, lungs clear, normal breath sounds, no respiratory distress, no accessory muscle use Cardiovascular: regular rate, rhythm, no edema, no gallop, no murmur Abdomen: normal bowel sounds, non tender, soft Extremities: normal range of motion, non-tender, normal inspection, no pedal edema, no calf tenderness Neurologic/Psychiatric: rigger third II-XII nml as tested, no motor/sensory deficits, alert, normal mood/affect, oriented x 3 Skin: normal color, warm/dry, no rash Laboratory Results Last 24 Hours Test 05/16/16 17:19 05/17/16 06:04 White Blood Count 14.02 K/uL 9.13 K/uL Red Blood Count 3.61 M/uL 3.12 M/uL Hemoglobin 11.2 g/dL 9.7 g/dL Hematocrit 33.1 % 28.7 % Mean Corpuscular Volume 91.7 fL 92.0 fL Mean Corpuscular Hemoglobin 31.0 pg 31.1 pg Mean Corpuscular Hemoglobin Concent 33.8 g/dl 33.8 g/dl Platelet Count 221 K/uL 181 K/uL Mean Platelet Volume 9.4 fL 9.6 fL Neutrophils (%) (Auto) 67.8 % Lymphocytes (%) (Auto) 20.3 % Monocytes (%) (Auto) 9.7 % Eosinophils (%) (Auto) 1.4 % Basophils (%) (Auto) 0.3 % Neutrophils # (Auto) 9.52 K/uL Lymphocytes # (Auto) 2.84 K/uL Monocytes # (Auto) 1.36 K/uL Eosinophils # (Auto) 0.19 K/uL Basophils # (Auto) 0.04 K/uL RDW Standard Deviation 42.8 fL 43.5 fL RDW Coefficient of Variation 12.8 % 13.0 % Immature Granulocyte % (Auto) 0.5 % Immature Granulocyte # (Auto) 0.07 K/uL Sodium Level 146 mmol/L Potassium Level 4.0 mmol/L Chloride Level 113 mmol/L Carbon Dioxide Level 23 mmol/L Anion Gap 10.0 mmol/L Blood Urea Nitrogen 21 mg/dl Creatinine 2.10 mg/dl Est Creatinine Clear Calc Drug Dose 33.9 ml/min Estimated GFR () 33.2 Estimated GFR (Non- 28.7 BUN/Creatinine Ratio 9.9 Random Glucose 105 mg/dl Calcium Level 8.1 mg/dl Assessment and Plan 80 years old man with Hx of BPH with chronic urinary retention with chronic indwelling grullon presented with hematuria; hematuria -grullon trauma vs bladder mass -CBI -currently having recurrence of hematuria with multiple blood clots , Discussed w urologist team , Miss Mena Suraj MCGEE, possible cystoscopy tomorrow -will keep NPO from midnight - follow up H&H acute blood loss anemia -from hematuria -continue to F/U trend CKD 4 -records obtained from [place] - stage 4 CKD. actually [facility] BPH/chronic urinary retention -chronic grullon DVT proph -pharmacologic contraindicated due to bleeding Continued [facility] stay due to: other (persistent gross hematuria)
[2016-05-17] MEDS ORDERED: ACETAMINOPHEN 500 MG TAB PO STA (21:40)
[2016-05-17 23:16] VITALS: BP 133/63; PULSE 113; TEMP 36.9; O2SAT 96
[2016-05-18] VITALS (9 sets, daily range): BP systolic 123–158; BP diastolic 62–97; PULSE 69–88; TEMP 36.8–37.4; O2SAT 88–96
--- NOTE | 2016-05-18 00:08 | Progress Note ---
Progress Note Spelled the nursing approximately 0 this evening. I was noted that the patient was complaining of penile pain. He was seen to the nurse that he felt like his catheter was clogged with clot. Nursing evaluated and noted that he continue to drain fluid from the Richadr, via continuous irrigation. She noted that he was complaining of discomfort, such I ordered 1 g of Tylenol and asked nurse to reassess shortly thereafter. Was found again probably 2300 sitting of the Tylenol did not help him much with his pain. Went to the bedside to assist the patient further. Subjective: Patient complains of an intermittent penile pain 12/12. He is denying abdominal pain, or suprapubic pain. He appreciates that the Richard continues to irrigate clear fluid but feels that there is a clot catheter lodged near with a balloon cuff inflated. He notes this happened to him previously in the past on the only solution is well for him is to remove the catheter and replace it. Objective: Vital signs within normal limits. Patient is alert and oriented complaining of having penile pain. Palpation of the abdomen was soft nontender , bowel sounds present in all 4 quadrants. There is a Richard catheter in place with clear fluid being irrigating. There is no evidence of wandy pus or clot to the catheter. Assessment: Patient with chronic indwelling Richard admitted for hematuria waiting evaluation by cystoscopy tomorrow. Irrigation of the fully catheter appears to be unobstructed at this time, the patient notes is appear this way in the past but removing and replacing the Richard has caused alleviation of his symptoms. Plan: Given that symptoms remind him of previous episodes in the past for catheter removal and replacement has helped I think it is safe to attempt that at this time and see if this circumstance the need to add medication for pain. Once the catheter is been removed and new catheter inserted a reassess the patient for resolution of symptoms. I returned to the room at approximately 02:50; new urinary catheter has been placed. Patient noted through this time that in general penile pain was improving but he was having bouts of pain that were lasting approximately 1 minute. And then proceeded, to ask nursing to give morphine 2 mg. nursing noted that when catheter was removed, it was clot in the afferent any different irrigation ports. Nursing notes that the catheter is frequently getting blocked off and required manual irrigation. I remained in the room for a period of 20 minutes at which time noted that the catheter was being continuously irrigated though at one point, did get blocked and the nurse did needed manual irrigate. Nurse stated that this was occurring constantly over the past half hour. She was aspirating red tinged fluid with small amounts of clot. Prior to leaving the room I noted that there is continuous irrigation. I returned to the room again to reassess her proximally all 04:00. Nursing notes that catheter is sustaining continue surgery showed more easily though she does intermittently have to come in and manually irrigate. Fluids to irrigate are clear with less clot. Patient notes the 2 mg of morphine given previously had minimal effect. Then proceeded to give him an additional 2 mg of morphine. No change of plan as regards to bladder irrigation. I returned to the room again at 06:00. Patient was asleep so I did not disturb him. Nurse notes that irrigation is more persistent without having to manually irrigate. No additional medications being given at this time. Patient currently awaiting cystoscopy, we'll defer to primary team and urology for further management.
[2016-05-18] MEDS: MoRPHine SULFATE 2 MG/ML CARP IV PRN ×2 (02:50→04:08)
[2016-05-18] MEDS ORDERED: NURSING VERBAL MED ORDER ONE (04:30)
[2016-05-18] MEDS ORDERED: MoRPHine SULFATE 2 MG/ML CARP IV PRN (04:30)
[2016-05-18] MEDS ORDERED: GENTAMICIN INJ 120 MG in DEXTROSE 5% 100ML 100 ML IV SCH (06:00)
[2016-05-18 07:55] LABS: BASO % 0.2 %; BASO ABS # 0.02 K/uL (0-0.2); COMPLETE YES; EOS % 0.7 %; HEMATOCRIT 27.3 % (42-52); IG% 0.3 %; LYMPH % 15.1 %; LYMPH ABS # 1.46 K/uL (1.2-3.4); MEAN CELL VOLUME 92.2 fL (80-100); MEAN CORPUSCULAR HEMOGLOBIN 30.7 pg (25-34); MEAN CORPUSCULAR HGB CONC 33.3 g/dl (32-36); MEAN PLATELET VOLUME 9.7 fL (7.4-10.4); MONO % 19.4 %; NEUT % 64.3 %; PLATELET COUNT 188 K/uL (130-400); RED BLOOD COUNT 2.96 M/uL (4.7-6.1); WHITE BLOOD COUNT 9.66 K/uL (4.8-10.8)
[2016-05-18 08:02] LABS: INR 1.1 (0.9-1.1); PROTHROMBIN TIME (PATIENT) 11.5 SECONDS (9.0-12.0)
[2016-05-18] MEDS: MULTIVITAMIN TAB PO SCH (08:05)
[2016-05-18] MEDS: CHOLECALCIFEROL 1000 INTER.UNIT TAB PO SCH (08:06)
[2016-05-18] MEDS: CYANOCOBALAMIN 100 MCG TAB (VIT B-12) PO SCH (08:06)
[2016-05-18] MEDS: FINASTERIDE 5 MG TAB PO SCH (08:06)
[2016-05-18 08:31] LABS: BUN/CREATININE RATIO 10.9 (10-20); CALCIUM 8.3 mg/dl (8.5-10.1); CREATININE 2.3 mg/dl (0.60-1.40)
[2016-05-18 08:33] LABS: ALB/GLOB RATIO 0.9 (0.9-2)
--- NOTE | 2016-05-18 10:57 | Progress Note ---
Subjective Date of Service: May 18, 2016. Subjective Pt evaluation today including: conversation w/ patient, physical exam, chart review, lab review, review of inpatient medication list Pain: SP / bladder pain Voiding: grullon catheter in place (on Alum CBI, urine clear) 80 yo male with BPH, chronic retention on Alum CBI. It seems his urine has been clear since last night but he is having bladder pain. There is anxiety over restarting his antiplatelets by the primary service seen his history of recurrent bleeding. He is tentatively scheduled for cysto, clot evac, fulguration and TURP today for his chronic retention. See prior notes. Problem List Medical Problems: (1) Hematuria Status: Acute (2) Urinary retention Status: Acute Review of Systems Constitutional: No chills, No fever Eyes: No worsening of vision ENT: No hearing loss Respiratory: No shortness of breath Cardiac: No chest pain Abdomen: + pain, No diarrhea, No vomiting Male : + hematuria (improved on Alum), + see HPI Neurologic: No memory loss, No paralysis Psychiatric: No depression symptoms Skin: No new/changing skin lesions Objective Vital Signs Date Time Temp Pulse Resp B/P Pulse Ox O2 Delivery O2 Flow Rate FiO2 05/18/16 08:00 Room Air 05/18/16 07:49 36.8 88 18 158/97 96 Room Air 05/18/16 00:00 93 Room Air 05/17/16 23:16 36.9 113 20 133/63 96 Room Air 05/17/16 16:30 93 Room Air 05/17/16 15:06 36.7 99 20 165/85 93 Room Air Physical Exam General Appearance: WD/WN, no apparent distress ENT: hearing grossly normal Neck: supple, no adenopathy Respiratory/Chest: no respiratory distress, no accessory muscle use Cardiovascular: no JVD Abdomen: non tender, soft Neurologic/Psychiatric: alert Skin: normal color Laboratory Results Last 24 Hours Test 05/18/16 07:10 05/18/16 07:20 White Blood Count 9.66 K/uL Red Blood Count 2.96 M/uL Hemoglobin 9.1 g/dL Hematocrit 27.3 % Mean Corpuscular Volume 92.2 fL Mean Corpuscular Hemoglobin 30.7 pg Mean Corpuscular Hemoglobin Concent 33.3 g/dl Platelet Count 188 K/uL Mean Platelet Volume 9.7 fL Neutrophils (%) (Auto) 64.3 % Lymphocytes (%) (Auto) 15.1 % Monocytes (%) (Auto) 19.4 % Eosinophils (%) (Auto) 0.7 % Basophils (%) (Auto) 0.2 % Neutrophils # (Auto) 6.21 K/uL Lymphocytes # (Auto) 1.46 K/uL Monocytes # (Auto) 1.87 K/uL Eosinophils # (Auto) 0.07 K/uL Basophils # (Auto) 0.02 K/uL RDW Standard Deviation 43.8 fL RDW Coefficient of Variation 13.2 % Immature Granulocyte % (Auto) 0.3 % Immature Granulocyte # (Auto) 0.03 K/uL Sodium Level 145 mmol/L Potassium Level 4.0 mmol/L Chloride Level 111 mmol/L Carbon Dioxide Level 23 mmol/L Anion Gap 11.0 mmol/L Blood Urea Nitrogen 25 mg/dl Creatinine 2.30 mg/dl Est Creatinine Clear Calc Drug Dose 30.9 ml/min Estimated GFR () 29.8 Estimated GFR (Non- 25.7 BUN/Creatinine Ratio 10.9 Random Glucose 119 mg/dl Calcium Level 8.3 mg/dl Magnesium Level 2.0 mg/dl Total Bilirubin 0.7 mg/dl Aspartate Amino Transf (AST/SGOT) 22 U/L Alanine Aminotransferase (ALT/SGPT) 30 U/L Alkaline Phosphatase 59 U/L Total Protein 6.1 gm/dl Albumin 2.9 gm/dl Globulin 3.2 gm/dl Albumin/Globulin Ratio 0.9 Prothrombin Time 11.5 SECONDS Prothromb Time International Ratio 1.1 Assessment and Plan A/P 80 yo male with hematuria, improved, chronic retention. Patient strongly wishes to proceed with TURP. As noted this will likely restart his bleeding and may not resolve his pain. Hopefully there is some residual detrusor function which will allow him to void. Will proceed with OR as planned , CBI postop, inpatient TOV. Consent obtained, Cipro aoc director combat operations officer to OR, back to saline irrigation. NPO per orders. Continued [facility] stay due to: other (persistent gross hematuria)
[2016-05-18] MEDS ORDERED: CIPROFLOXACIN 400MG / 200ML D5W ONE (13:51)
[2016-05-18] MEDS ORDERED: NURSING VERBAL MED ORDER STA (13:52)
[2016-05-18] MEDS ORDERED: DEXAMETHASONE SOD INJ 4 MG/ML VIAL ONE (14:32)
[2016-05-18] MEDS ORDERED: FENTANYL CITRATE INJ 50 MCG/1 ML 2 ML VIAL ONE ×2 (14:32→15:11)
[2016-05-18] MEDS ORDERED: ONDANSETRON INJ 2 MG/ML 2 ML VIAL ONE (14:32)
[2016-05-18] MEDS ORDERED: PROPOFOL IV EMULSION 10 MG/ML 20 ML VIAL IV ONE (14:32)
[2016-05-18] MEDS ORDERED: LIDOCAINE HCL 2% 2 ML VIAL (20MG/ML) ONE (14:32)
[2016-05-18] MEDS ORDERED: PHENYLEPHRINE HCL INJ 10 MG/ML VIAL ONE (15:17)
[2016-05-18] MEDS ORDERED: FENTANYL CITRATE INJ 50 MCG/1 ML 2 ML VIAL IV PRN (15:45)
[2016-05-18] MEDS ORDERED: EpHEDrine SULFATE INJ 50 MG/ML AMP IV PRN (15:45)
[2016-05-18] MEDS ORDERED: ONDANSETRON INJ 2 MG/ML 2 ML VIAL IV PRN (15:45)
[2016-05-18] MEDS ORDERED: ATROPINE SULFATE 0.1 MG/ML 5ML SYR IV PRN (15:45)
[2016-05-18] MEDS ORDERED: HYDROmorphone INJ 1 MG/ML SYR IV PRN (15:45)
[2016-05-18] MEDS ORDERED: BELLADONNA/OPIUM SUPP 60 MG SUPP PR ONE ×2 (16:13→16:36)
[2016-05-18] MEDS ORDERED: CEFAZOLIN SOD 1 GM VIAL ONE (16:34)
--- NOTE | 2016-05-18 16:34 | [facility] Post Operative Brief Note ---
Immediate Operative Summary Operative Date May 18, 2016. Pre-Operative Diagnosis Benign prostatic hyperplasia, history of hematuria and retention Post-Operative Diagnosis Same as preoperative diagnosis Procedure(s) Performed Cystoscopy, Clot Evacuation, Bipolar Transurethral Resection and Vaporization of Prostate Surgeon Dr. Joselo Warren Water Treatment Operator Surgeon(s) None Estimated Blood Loss 40ml Findings Open fossa after completion with excellent hemostasis, old clot in bladder Specimens a. prostate chips Drains [address] grullon 24 cc in balloon Anesthesia GALMA Complication(s) None Disposition Recovery Room / PACU
--- NOTE | 2016-05-18 16:56 | Anesthesiology Progress Note ---
Anesthesia Post Op Note Date & Time May 18, 2016 at 16:56 Vital Signs Pain Intensity: 0 Vital Signs Past 12 Hours Date Time Temp Pulse Resp B/P Pulse Ox O2 Delivery O2 Flow Rate FiO2 05/18/16 16:50 71 16 121/68 100 Nasal Cannula 2 05/18/16 16:40 73 16 121/71 100 Mask 10 05/18/16 16:32 36.6 71 16 134/74 98 Mask 10 05/18/16 08:00 Room Air 05/18/16 07:49 36.8 88 18 158/97 96 Room Air Notes Mental Status: alert / awake / arousable, participated in evaluation Pt Amnestic to Procedure: Yes Nausea / Vomiting: adequately controlled Pain: adequately controlled Airway Patency, RR, SpO2: stable & adequate BP & HR: stable & adequate Hydration State: stable & adequate Anesthetic Complications: no major complications apparent
--- NOTE | 2016-05-18 19:37 | Progress Note ---
Subjective Date of Service: May 18, 2016. Problem List Medical Problems: (1) Hematuria Status: Acute (2) Urinary retention Status: Acute Review of Systems Constitutional: No chills, No fatigue, No fever, No problem reported, No see HPI, No sweats, No weakness, No weight loss Eyes: No diplopia, No discharge, No eye pain, No problem reported, No redness, No see HPI, No worsening of vision ENT: No dental problems, No hearing loss, No nasal symptoms, No problem reported, No see HPI, No sore throat, No tinnitus, No trouble swallowing, No unusual epistaxis Respiratory: No cough, No dyspnea at rest, No dyspnea on exertion, No hemoptysis, No problem reported, No see HPI, No shortness of breath, No sputum, No wheezing Cardiac: No PND, No chest pain, No claudication, No edema, No orthopnea, No palpitations, No problem reported, No see HPI Abdomen: No GI bleeding, No constipation, No diarrhea, No nausea, No pain, No problem reported, No see HPI, No vomiting Musculoskeletal: No calf pain, No joint pain, No muscle pain, No problem reported, No see HPI, No swelling Male : + problem reported (currently clear urine in the grullon), No dysuria, No hematuria, No incontinence, No nocturia more than once/night, No see HPI, No sexual dysfunction, No slowing stream, No urinary frequency Neurologic: No balance problems, No memory loss, No numbness/tingling, No paralysis, No problem reported, No see HPI, No vertigo, No weakness Heme: No abnormal bleeding/bruising, No clotting problems, No night sweats, No problem reported, No see HPI, No swollen lymph nodes Endo: No excessive thirst, No excessive urination, No fatigue, No problem reported, No see HPI Skin: No bleeding, No color change, No itch, No new/changing skin lesions, No problem reported, No rash, No see HPI Medications Current Inpatient Medications Medications (Trade) Dose Ordered Sig/Clay Route Start Time Stop Time Status Last Admin Dose Admin Acetaminophen (Tylenol Tab) 650 mg Q4H PRN PO 05/13/16 20:30 06/12/16 20:29 Al Hydrox/Mg Hydrox/Simethicone (Maalox Max Susp) 15 ml Q4H PRN PO 05/13/16 20:30 06/12/16 20:29 Magnesium Hydroxide (Milk Of Magnesia Susp) 30 ml Q12H PRN PO 05/13/16 20:30 06/12/16 20:29 Ondansetron HCl (Zofran Inj) 4 mg Q6H PRN IV 05/13/16 20:30 06/12/16 20:29 Nitroglycerin (Nitrostat Tab) 0.4 mg UD PRN SL 05/13/16 20:30 06/12/16 20:29 Cholecalciferol (Vitamin D Tab) 1,000 inter.unit DAILY PO 05/14/16 09:00 06/13/16 08:59 05/18/16 08:06 1,000 INTER.UNIT Cyanocobalamin (Vitamin B-12 Tab) 100 mcg DAILY PO 05/14/16 09:00 06/13/16 08:59 05/18/16 08:06 100 MCG Multivitamins (Multivitamin Tab) 1 tab DAILY PO 05/14/16 09:00 06/13/16 08:59 05/18/16 08:05 1 TAB Finasteride (Proscar Tab) 5 mg QAM PO 05/14/16 09:00 06/13/16 08:59 05/18/16 08:06 5 MG Morphine Sulfate (MoRPHine SULFATE INJ) 2 mg Q30M PRN IV 05/18/16 04:30 06/01/16 04:29 Fentanyl Citrate (Fentanyl Inj) 25 mcg Q5M PRN IV 05/18/16 15:45 05/18/16 20:45 Hydromorphone HCl (Dilaudid Inj) 0.25 mg Q5M PRN IV 05/18/16 15:45 05/18/16 20:45 Ondansetron HCl (Zofran Inj) 4 mg ONE PRN IV 05/18/16 15:45 05/18/16 20:45 Ephedrine Sulfate (EpHEDrine SULFATE INJ) 5 mg Q5M PRN IV 05/18/16 15:45 05/18/16 20:45 Atropine Sulfate 0.5 mg 0.5 mg Q1M PRN IV 05/18/16 15:45 05/18/16 20:45 Ciprofloxacin/ Dextrose/Prmx (Cipro / D5w/ Premixed D5W) 100 ml @ 100 mls/hr Q12 IV 05/18/16 21:00 05/19/16 20:59 UNV Objective Vital Signs Date Time Temp Pulse Resp B/P Pulse Ox O2 Delivery O2 Flow Rate FiO2 05/18/16 19:10 94 05/18/16 19:08 37.0 79 20 126/62 88 Room Air 05/18/16 18:34 37.0 69 18 123/65 90 Room Air 05/18/16 18:05 37.4 88 18 145/68 93 Room Air 2.0 05/18/16 17:45 37.0 80 18 140/68 95 Room Air 2.0 05/18/16 17:23 37.0 85 18 138/68 95 Room Air 05/18/16 17:00 36.4 65 16 118/64 100 Nasal Cannula 2 05/18/16 16:50 71 16 121/68 100 Nasal Cannula 2 05/18/16 16:40 73 16 121/71 100 Mask 10 05/18/16 16:32 36.6 71 16 134/74 98 Mask 10 05/18/16 08:00 Room Air 05/18/16 07:49 36.8 88 18 158/97 96 Room Air 05/18/16 00:00 93 Room Air 05/17/16 23:16 36.9 113 20 133/63 96 Room Air Physical Exam General Appearance: WD/WN, no apparent distress Eyes: normal inspection, EOMI ENT: normal ENT inspection, hearing grossly normal Neck: supple Respiratory/Chest: chest non-tender, lungs clear, normal breath sounds, no respiratory distress, no accessory muscle use Cardiovascular: regular rate, rhythm, no edema, no gallop, no JVD, no murmur Abdomen: normal bowel sounds, non tender, soft, no organomegaly Extremities: normal range of motion, non-tender, normal inspection Neurologic/Psychiatric: data compiler II-XII nml as tested, no motor/sensory deficits, alert, normal mood/affect, oriented x 3 Skin: normal color, warm/dry, no rash Laboratory Results Last 24 Hours Test 05/18/16 07:10 05/18/16 07:20 White Blood Count 9.66 K/uL Red Blood Count 2.96 M/uL Hemoglobin 9.1 g/dL Hematocrit 27.3 % Mean Corpuscular Volume 92.2 fL Mean Corpuscular Hemoglobin 30.7 pg Mean Corpuscular Hemoglobin Concent 33.3 g/dl Platelet Count 188 K/uL Mean Platelet Volume 9.7 fL Neutrophils (%) (Auto) 64.3 % Lymphocytes (%) (Auto) 15.1 % Monocytes (%) (Auto) 19.4 % Eosinophils (%) (Auto) 0.7 % Basophils (%) (Auto) 0.2 % Neutrophils # (Auto) 6.21 K/uL Lymphocytes # (Auto) 1.46 K/uL Monocytes # (Auto) 1.87 K/uL Eosinophils # (Auto) 0.07 K/uL Basophils # (Auto) 0.02 K/uL RDW Standard Deviation 43.8 fL RDW Coefficient of Variation 13.2 % Immature Granulocyte % (Auto) 0.3 % Immature Granulocyte # (Auto) 0.03 K/uL Sodium Level 145 mmol/L Potassium Level 4.0 mmol/L Chloride Level 111 mmol/L Carbon Dioxide Level 23 mmol/L Anion Gap 11.0 mmol/L Blood Urea Nitrogen 25 mg/dl Creatinine 2.30 mg/dl Est Creatinine Clear Calc Drug Dose 30.9 ml/min Estimated GFR () 29.8 Estimated GFR (Non- 25.7 BUN/Creatinine Ratio 10.9 Random Glucose 119 mg/dl Calcium Level 8.3 mg/dl Magnesium Level 2.0 mg/dl Total Bilirubin 0.7 mg/dl Aspartate Amino Transf (AST/SGOT) 22 U/L Alanine Aminotransferase (ALT/SGPT) 30 U/L Alkaline Phosphatase 59 U/L Total Protein 6.1 gm/dl Albumin 2.9 gm/dl Globulin 3.2 gm/dl Albumin/Globulin Ratio 0.9 Prothrombin Time 11.5 SECONDS Prothromb Time International Ratio 1.1 Assessment and Plan 80 years old man with Hx of BPH with chronic urinary retention with chronic indwelling grullon presented with hematuria; hematuria - failed CBI -S/P Cystoscopy, Clot Evacuation, Bipolar Transurethral Resection and Vaporization of Prostate acute blood loss anemia -from hematuria -continue to F/U trend CKD 4 -records obtained from [place] - stage 4 CKD. actually [facility] Cr [facility] BPH/chronic urinary retention -chronic grullon DVT proph -pharmacologic contraindicated due to bleeding Continued [facility] stay due to: other (persistent gross hematuria)
--- NOTE | 2016-05-18 22:08 | OPERATIVE REPORT ---
DATE OF OPERATION: 05/18/2016 PREOPERATIVE DIAGNOSIS: Benign prostatic hypertrophy with history of urinary retention and gross hematuria. POSTOPERATIVE DIAGNOSIS: Same. PROCEDURE: Cystoscopy, clot evacuation, bipolar transurethral resection (80% and vaporization) 20% of prostate gland. SURGEON: Dr. Joselo Warren. PROJECT ENGINEERING MANAGER: None. ANESTHESIA: General anesthesia with laryngeal mask. COMPLICATIONS: None. ESTIMATED BLOOD LOSS: 40 mL. IV FLUIDS: A liter of crystalloid. SPECIMENS SENT TO PATHOLOGY: Prostate chips. DRAINS LEFT IN PLACE: Include a 26-[place] 3-way Richard catheter, 24 mL of sterile water in the balloon. FINDINGS: Open fossa after completion with excellent hemostasis, old clot present within the bladder consistent with alum effect. BRIEF HISTORY: Mr. Reed is an 80-year-old male with a history of chronic urinary retention and BPH who I have seen previously for persistent gross hematuria. His hematuria has unfortunately persistent over the past few days and he has not been able to restart his Plavix. He has been started on alum irrigation yesterday for continuous hematuria and his urine seems to be clear, although he continues to have abdominal pain and feels like there are clots present within his bladder, which are obstructing his Richard catheter. The patient and primary service both have a strong preference for proceeding with intervention of the course of this admission and informed cystoscopy, clot evacuation and possible bipolar TURP, deferred in the past secondary to consent issues. Please see previous urologic consultation for further details. The patient is being brought to the operating room today for this purpose. Ciprofloxacin 400 mg and Ancef intravenously provided for antibiotic coverage prior to OR. Informed consent reviewed in the chart with the patient. SCDs placed on bilateral lower extremities. DESCRIPTION OF PROCEDURE: The patient was properly identified and brought to the operative suite after identification of appropriate consent on the chart, general anesthesia with laryngeal mask was initiated. The patient was prepped and draped in standard fashion for this procedure. header set up operator-out procedure was followed. A 24-[place] resectoscope was advanced into the bladder under direct visualization using a visual obturator demonstrating a mildly inflamed urethra consistent with chronic Richard placement and a grossly enlarged prostate gland, approximately 6-7 cm with bilateral lateral lobe hypertrophy and intravesical median lobe. Within the bladder, significant volumes of old clot rubbery with alum effect were noted. These were irrigated free for a total of approximately 200 mL of old clot. After this was completely inflamed and irritated bladder mucosa consistent with a chronic indwelling Richard and previous history of UTIs noted. Bipolar loop was inserted into the bladder and median lobe was resected until flush with the trigone. Ureteral orifices were visualized and noted to be adequately removed from the bladder neck. Lateral lobes were also resected with cautery bleeding as necessary over the course of the procedure. Bipolar button would be used for vaporization on occasion as well and further hemostasis. The distal aspect of the prostate was noted to extend past the verumontanum and therefore apical aspect of the prostate was spared. After approximately 1 hour of resection, the patient's prostate was noted to be unobstructed with excellent hemostasis. The prostate chips were irrigated free of the bladder including a large pedunculated median lobe which required further division to allow passage via the scope. After this was complete, the bladder was very carefully inspected to ensure that there were no further prostate chips left. Hemostasis was again noted and bladder was partially distended, and resectoscope was removed. A 26-[place] 3-way Richard catheter was placed over a catheter guide with return of clear pink urine. A 24 mL of sterile water replaced within the Richard catheter balloon and catheter was placed to continuous bladder irrigation. Belladonna and opium suppository was provided for postoperative analgesia and anesthesia was reversed. The patient was transferred to recovery room in stable condition. FOLLOWUP CARE: The patient will be readmitted to the floor to the primary service. We will plan on a trial of void in 1-2 days, depending the appearance of urine. No Plavix for a week to avoid recurrent hematuria. Will cover with ciprofloxacin in the postoperative period. Indefinite finasteride for this patient. I attest to the content of the Intraoperative Record and any orders documented therein. Any exceptio ns are noted below.
[2016-05-19 00:34] VITALS: BP 127/68; PULSE 86; TEMP 36.8; O2SAT 93
[2016-05-19] MEDS: CIPROFLOXACIN / D5W 200 MG in PREMIXED IN D5W 100 ML IV SCH ×2 (02:16→14:26)
[2016-05-19 07:31] VITALS: BP 133/67; PULSE 75; TEMP 36.7; O2SAT 91
[2016-05-19] MEDS: MULTIVITAMIN TAB PO SCH (07:42)
[2016-05-19] MEDS: CHOLECALCIFEROL 1000 INTER.UNIT TAB PO SCH ×2 (07:42→08:25)
[2016-05-19] MEDS: FINASTERIDE 5 MG TAB PO SCH (07:42)
[2016-05-19] MEDS: CYANOCOBALAMIN 100 MCG TAB (VIT B-12) PO SCH (07:42)
[2016-05-19 08:00] VITALS: O2SAT 91
--- NOTE | 2016-05-19 08:21 | Progress Note ---
Subjective Date of Service: May 19, 2016. Subjective Pt evaluation today including: conversation w/ patient, physical exam, chart review, lab review, review of inpatient medication list Pain: Mild grullon discomfort, improved PO Intake: Emy PO Voiding: grullon catheter in place (CBI running slow with light pink urine, no clots) 80 yo male POD#1 s/p clot evacuation and TURP. Intraop findings reviewed, CBI running slow with clear pink urine. No new specific complaints. Problem List Medical Problems: (1) Hematuria Status: Acute (2) Urinary retention Status: Acute Review of Systems Constitutional: No chills, No fever Eyes: No worsening of vision ENT: No hearing loss Respiratory: No sputum, No wheezing Cardiac: No chest pain Abdomen: No nausea, No pain, No vomiting Musculoskeletal: No calf pain Male : + hematuria Neurologic: No memory loss, No paralysis Psychiatric: No depression symptoms Skin: No new/changing skin lesions Objective Vital Signs Date Time Temp Pulse Resp B/P Pulse Ox O2 Delivery O2 Flow Rate FiO2 05/19/16 07:31 36.7 75 18 133/67 91 Room Air 05/19/16 00:34 36.8 86 18 127/68 93 Room Air 05/18/16 23:15 Room Air 05/18/16 19:10 94 05/18/16 19:08 37.0 79 20 126/62 88 Room Air 05/18/16 18:34 37.0 69 18 123/65 90 Room Air 05/18/16 18:05 37.4 88 18 145/68 93 Room Air 2.0 05/18/16 17:45 37.0 80 18 140/68 95 Room Air 2.0 05/18/16 17:25 93 Room Air 05/18/16 17:23 37.0 85 18 138/68 95 Room Air 05/18/16 17:00 36.4 65 16 118/64 100 Nasal Cannula 2 05/18/16 16:50 71 16 121/68 100 Nasal Cannula 2 05/18/16 16:40 73 16 121/71 100 Mask 10 05/18/16 16:32 36.6 71 16 134/74 98 Mask 10 Physical Exam General Appearance: WD/WN, no apparent distress ENT: hearing grossly normal Neck: supple, no adenopathy Respiratory/Chest: no respiratory distress, no accessory muscle use Cardiovascular: no JVD Abdomen: non tender, soft Extremities: non-tender Neurologic/Psychiatric: alert, oriented x 3 Skin: normal color Laboratory Results Last 24 Hours Test 05/19/16 04:44 Assessment and Plan A/P 80 yo male POD#1 s/p clot evacuation, TURP. Doing well. Would leave CBI running for today, TOV tomorrow - hopefully after large volume TURP will be able to void and DC without grullon. Should he fail his trial of void, can replace 18 fr grullon and we will arrange for another trial of void in 1-2 weeks in the office. Would cover with Cipro 250 mg PO BID x 5-7 days postop. Should be able to be DC home tomorrow with or without grullon. Continued [facility] stay due to: other (persistent gross hematuria) Discharge planning: home
[2016-05-19 09:25] LABS: BASO % 0.1 %; BASO ABS # 0.01 K/uL (0-0.2); EOS % 0.1 %; HEMATOCRIT 24.5 % (42-52); IG% 0.3 %; LYMPH % 20.1 %; LYMPH ABS # 2.22 K/uL (1.2-3.4); MEAN CELL VOLUME 93.2 fL (80-100); MEAN CORPUSCULAR HEMOGLOBIN 30.4 pg (25-34); MEAN CORPUSCULAR HGB CONC 32.7 g/dl (32-36); MONO % 17.7 %; NEUT % 61.7 %; PLATELET COUNT 191 K/uL (130-400); RED BLOOD COUNT 2.63 M/uL (4.7-6.1); WHITE BLOOD COUNT 11.06 K/uL (4.8-10.8)
[2016-05-19 09:42] LABS: BUN/CREATININE RATIO 12.5 (10-20); CALCIUM 7.6 mg/dl (8.5-10.1); CREATININE 2.5 mg/dl (0.60-1.40); MAGNESIUM 2.1 mg/dl (1.8-2.4)
[2016-05-19 09:45] LABS: ALB/GLOB RATIO 0.8 (0.9-2); PHOSPHORUS 2.9 mg/dl (2.5-4.9)
[2016-05-19 10:12] LABS: COMPLETE YES; POLYCHROMASIA 1+
[2016-05-19] MEDS: ACETAMINOPHEN 325 MG TAB PO PRN (14:28)
[2016-05-19 15:04] VITALS: BP 134/66; PULSE 84; TEMP 37; O2SAT 95
[2016-05-19 16:00] VITALS: O2SAT 91
--- NOTE | 2016-05-19 18:34 | Progress Note ---
Subjective Date of Service: May 19, 2016. Subjective Pt evaluation today including: conversation w/ patient, physical exam, chart review, lab review, review of studies Problem List Medical Problems: (1) Hematuria Status: Acute (2) Urinary retention Status: Acute Review of Systems Constitutional: No chills, No fatigue, No fever, No problem reported, No see HPI, No sweats, No weakness, No weight loss Eyes: No diplopia, No discharge, No eye pain, No problem reported, No redness, No see HPI, No worsening of vision ENT: No dental problems, No hearing loss, No nasal symptoms, No problem reported, No see HPI, No sore throat, No tinnitus, No trouble swallowing, No unusual epistaxis Respiratory: No cough, No dyspnea at rest, No dyspnea on exertion, No hemoptysis, No problem reported, No see HPI, No shortness of breath, No sputum, No wheezing Cardiac: No PND, No chest pain, No claudication, No edema, No orthopnea, No palpitations, No problem reported, No see HPI Abdomen: No GI bleeding, No constipation, No diarrhea, No nausea, No pain, No problem reported, No see HPI, No vomiting Musculoskeletal: No calf pain, No joint pain, No muscle pain, No problem reported, No see HPI, No swelling Male : + hematuria Neurologic: No balance problems, No memory loss, No numbness/tingling, No paralysis, No problem reported, No see HPI, No vertigo, No weakness Psychiatric: No anhedonism, No anxiety, No depression symptoms, No insomnia, No problem reported, No see HPI, No substance abuse Endo: No excessive thirst, No excessive urination, No fatigue, No problem reported, No see HPI Skin: No bleeding, No color change, No itch, No new/changing skin lesions, No problem reported, No rash, No see HPI Medications Current Inpatient Medications Medications (Trade) Dose Ordered Sig/Clay Route Start Time Stop Time Status Last Admin Dose Admin Acetaminophen (Tylenol Tab) 650 mg Q4H PRN PO 05/13/16 20:30 06/12/16 20:29 05/19/16 14:28 650 MG Al Hydrox/Mg Hydrox/Simethicone (Maalox Max Susp) 15 ml Q4H PRN PO 05/13/16 20:30 06/12/16 20:29 Magnesium Hydroxide (Milk Of Magnesia Susp) 30 ml Q12H PRN PO 05/13/16 20:30 06/12/16 20:29 Ondansetron HCl (Zofran Inj) 4 mg Q6H PRN IV 05/13/16 20:30 06/12/16 20:29 Nitroglycerin (Nitrostat Tab) 0.4 mg UD PRN SL 05/13/16 20:30 06/12/16 20:29 Cholecalciferol (Vitamin D Tab) 1,000 inter.unit DAILY PO 05/14/16 09:00 06/13/16 08:59 05/19/16 08:25 1,000 INTER.UNIT Cyanocobalamin (Vitamin B-12 Tab) 100 mcg DAILY PO 05/14/16 09:00 06/13/16 08:59 05/19/16 07:42 100 MCG Multivitamins (Multivitamin Tab) 1 tab DAILY PO 05/14/16 09:00 06/13/16 08:59 05/19/16 07:42 1 TAB Finasteride (Proscar Tab) 5 mg QAM PO 05/14/16 09:00 06/13/16 08:59 05/19/16 07:42 5 MG Morphine Sulfate (MoRPHine SULFATE INJ) 2 mg Q30M PRN IV 05/18/16 04:30 06/01/16 04:29 Objective Vital Signs Date Time Temp Pulse Resp B/P Pulse Ox O2 Delivery O2 Flow Rate FiO2 05/19/16 16:00 91 Room Air 05/19/16 15:04 37.0 84 20 134/66 95 Room Air 05/19/16 08:00 91 Room Air 05/19/16 07:31 36.7 75 18 133/67 91 Room Air 05/19/16 00:34 36.8 86 18 127/68 93 Room Air 05/18/16 23:15 Room Air 05/18/16 19:10 94 05/18/16 19:08 37.0 79 20 126/62 88 Room Air 05/18/16 18:34 37.0 69 18 123/65 90 Room Air Physical Exam General Appearance: WD/WN, no apparent distress Eyes: normal inspection, EOMI ENT: normal ENT inspection, hearing grossly normal Neck: supple Respiratory/Chest: chest non-tender, lungs clear, normal breath sounds, no respiratory distress, no accessory muscle use Cardiovascular: regular rate, rhythm, no gallop, no JVD, no murmur Abdomen: normal bowel sounds, non tender, soft, no organomegaly Extremities: normal range of motion, non-tender, normal inspection, no pedal edema Neurologic/Psychiatric: steam service inspector II-XII nml as tested, no motor/sensory deficits, alert, normal mood/affect, oriented x 3 Skin: normal color, warm/dry, no rash Laboratory Results Last 24 Hours Test 05/19/16 07:45 White Blood Count 11.06 K/uL Red Blood Count 2.63 M/uL Hemoglobin 8.0 g/dL Hematocrit 24.5 % Mean Corpuscular Volume 93.2 fL Mean Corpuscular Hemoglobin 30.4 pg Mean Corpuscular Hemoglobin Concent 32.7 g/dl Platelet Count 191 K/uL Mean Platelet Volume 10.0 fL Neutrophils (%) (Auto) 61.7 % Lymphocytes (%) (Auto) 20.1 % Monocytes (%) (Auto) 17.7 % Eosinophils (%) (Auto) 0.1 % Basophils (%) (Auto) 0.1 % Neutrophils # (Auto) 6.83 K/uL Lymphocytes # (Auto) 2.22 K/uL Monocytes # (Auto) 1.96 K/uL Eosinophils # (Auto) 0.01 K/uL Basophils # (Auto) 0.01 K/uL RDW Standard Deviation 45.6 fL RDW Coefficient of Variation 13.7 % Immature Granulocyte % (Auto) 0.3 % Immature Granulocyte # (Auto) 0.03 K/uL Polychromasia 1+ Sodium Level 143 mmol/L Potassium Level 4.0 mmol/L Chloride Level 109 mmol/L Carbon Dioxide Level 23 mmol/L Anion Gap 11.0 mmol/L Blood Urea Nitrogen 31 mg/dl Creatinine 2.50 mg/dl Est Creatinine Clear Calc Drug Dose 28.4 ml/min Estimated GFR () 26.9 Estimated GFR (Non- 23.2 BUN/Creatinine Ratio 12.5 Random Glucose 90 mg/dl Calcium Level 7.6 mg/dl Phosphorus Level 2.9 mg/dl Magnesium Level 2.1 mg/dl Total Bilirubin 0.4 mg/dl Aspartate Amino Transf (AST/SGOT) 19 U/L Alanine Aminotransferase (ALT/SGPT) 21 U/L Alkaline Phosphatase 52 U/L Total Protein 5.5 gm/dl Albumin 2.4 gm/dl Globulin 3.1 gm/dl Albumin/Globulin Ratio 0.8 Assessment and Plan 80 years old man with Hx of BPH with chronic urinary retention with chronic indwelling grullon presented with hematuria; hematuria - failed CBI -S/P Cystoscopy, Clot Evacuation, Bipolar Transurethral Resection and Vaporization of Prostate - POD#1 continues to have minimal hematuria, Dr. Warren Would leave CBI running for today, TOV tomorrow acute blood loss anemia -from hematuria -continue to F/U trend CKD 4 -records obtained from [place] - stage 4 CKD. [facility] BPH/chronic urinary retention -chronic grullon DVT proph -pharmacologic contraindicated due to bleeding Continued [facility] stay due to: other (persistent gross hematuria) Discharge planning: home
[2016-05-19 23:55] VITALS: BP 136/62; PULSE 95; TEMP 37; O2SAT 92
[2016-05-20] VITALS (9 sets, daily range): BP systolic 92–145; BP diastolic 60–78; PULSE 79–94; TEMP 36.6–37.2; O2SAT 94–97
[2016-05-20] MEDS: FINASTERIDE 5 MG TAB PO SCH (07:36)
[2016-05-20] MEDS: MULTIVITAMIN TAB PO SCH (07:36)
[2016-05-20] MEDS: CYANOCOBALAMIN 100 MCG TAB (VIT B-12) PO SCH (07:36)
[2016-05-20] MEDS: CHOLECALCIFEROL 1000 INTER.UNIT TAB PO SCH (07:36)
[2016-05-20 07:49] LABS: HEMATOCRIT 24.5 % (42-52); MEAN CORPUSCULAR HGB CONC 32.7 g/dl (32-36); PLATELET COUNT 177 K/uL (130-400); RED BLOOD COUNT 2.58 M/uL (4.7-6.1); WHITE BLOOD COUNT 9.19 K/uL (4.8-10.8)
[2016-05-20 08:13] LABS: INR 1.1 (0.9-1.1); PROTHROMBIN TIME (PATIENT) 11.4 SECONDS (9.0-12.0)
[2016-05-20 08:27] LABS: BASO % 0.2 %; BASO ABS # 0.02 K/uL (0-0.2); COMPLETE YES; EOS % 0.7 %; HYPOCHROMIA PRESENT; IG% 0.2 %; LYMPH % 16.2 %; LYMPH ABS # 1.49 K/uL (1.2-3.4); MONO % 17.3 %; NEUT % 65.4 %; POLYCHROMASIA 1+
[2016-05-20 08:30] LABS: BUN/CREATININE RATIO 13.5 (10-20); CALCIUM 7.4 mg/dl (8.5-10.1); CREATININE 2.8 mg/dl (0.60-1.40); POTASSIUM 4.1 mmol/L (3.5-5.1)
[2016-05-20 08:33] LABS: ALB/GLOB RATIO 0.8 (0.9-2)
[2016-05-20] MEDS: ACETAMINOPHEN 325 MG TAB PO PRN (11:06)
--- NOTE | 2016-05-20 11:59 | Progress Note ---
Subjective Date of Service: May 20, 2016. Subjective Pt evaluation today including: conversation w/ patient, physical exam, chart review, lab review, review of studies, conversation w/ enterprise resource planning consultant (with urologist, plan for DC tomorrow) Voiding: no voiding problems Problem List Medical Problems: (1) Hematuria Status: Acute (2) Urinary retention Status: Acute Review of Systems Constitutional: No chills, No fatigue, No fever, No problem reported, No see HPI, No sweats, No weakness, No weight loss Eyes: No diplopia, No discharge, No eye pain, No problem reported, No redness, No see HPI, No worsening of vision ENT: No dental problems, No hearing loss, No nasal symptoms, No problem reported, No see HPI, No sore throat, No tinnitus, No trouble swallowing, No unusual epistaxis Respiratory: No cough, No dyspnea at rest, No dyspnea on exertion, No hemoptysis, No problem reported, No see HPI, No shortness of breath, No sputum, No wheezing Cardiac: No PND, No chest pain, No claudication, No edema, No orthopnea, No palpitations, No problem reported, No see HPI Abdomen: No GI bleeding, No constipation, No diarrhea, No nausea, No pain, No problem reported, No see HPI, No vomiting Musculoskeletal: No calf pain, No joint pain, No muscle pain, No problem reported, No see HPI, No swelling Male : + problem reported (grullon in place) Neurologic: No balance problems, No memory loss, No numbness/tingling, No paralysis, No problem reported, No see HPI, No vertigo, No weakness Heme: No abnormal bleeding/bruising, No clotting problems, No night sweats, No problem reported, No see HPI, No swollen lymph nodes Endo: No excessive thirst, No excessive urination, No fatigue, No problem reported, No see HPI Skin: No bleeding, No color change, No itch, No new/changing skin lesions, No problem reported, No rash, No see HPI Medications Current Inpatient Medications Medications (Trade) Dose Ordered Sig/Clay Route Start Time Stop Time Status Last Admin Dose Admin Acetaminophen (Tylenol Tab) 650 mg Q4H PRN PO 05/13/16 20:30 06/12/16 20:29 05/20/16 11:06 650 MG Al Hydrox/Mg Hydrox/Simethicone (Maalox Max Susp) 15 ml Q4H PRN PO 05/13/16 20:30 06/12/16 20:29 Magnesium Hydroxide (Milk Of Magnesia Susp) 30 ml Q12H PRN PO 05/13/16 20:30 06/12/16 20:29 Ondansetron HCl (Zofran Inj) 4 mg Q6H PRN IV 05/13/16 20:30 06/12/16 20:29 Nitroglycerin (Nitrostat Tab) 0.4 mg UD PRN SL 05/13/16 20:30 06/12/16 20:29 Cholecalciferol (Vitamin D Tab) 1,000 inter.unit DAILY PO 05/14/16 09:00 06/13/16 08:59 05/20/16 07:36 1,000 INTER.UNIT Cyanocobalamin (Vitamin B-12 Tab) 100 mcg DAILY PO 05/14/16 09:00 06/13/16 08:59 05/20/16 07:36 100 MCG Multivitamins (Multivitamin Tab) 1 tab DAILY PO 05/14/16 09:00 06/13/16 08:59 05/20/16 07:36 1 TAB Finasteride (Proscar Tab) 5 mg QAM PO 05/14/16 09:00 06/13/16 08:59 05/20/16 07:36 5 MG Morphine Sulfate (MoRPHine SULFATE INJ) 2 mg Q30M PRN IV 05/18/16 04:30 06/01/16 04:29 Objective Vital Signs Date Time Temp Pulse Resp B/P Pulse Ox O2 Delivery O2 Flow Rate FiO2 05/20/16 08:16 37.2 82 18 113/68 94 Room Air 05/20/16 08:00 Room Air 05/20/16 00:00 Room Air 05/19/16 23:55 37.0 95 20 136/62 92 Room Air 05/19/16 20:00 Room Air 05/19/16 16:00 91 Room Air 05/19/16 15:04 37.0 84 20 134/66 95 Room Air Physical Exam General Appearance: WD/WN, no apparent distress Eyes: normal inspection, EOMI ENT: normal ENT inspection, hearing grossly normal, TMs normal, pharynx normal Neck: supple, no adenopathy, thyroid normal Respiratory/Chest: chest non-tender, lungs clear, normal breath sounds, no respiratory distress, no accessory muscle use Cardiovascular: regular rate, rhythm, no edema, no gallop, no JVD, no murmur Abdomen: normal bowel sounds, non tender, soft, no organomegaly, no pulsatile mass Extremities: normal range of motion, non-tender, normal inspection, no pedal edema Neurologic/Psychiatric: shirt folder II-XII nml as tested, no motor/sensory deficits, alert, normal mood/affect, oriented x 3 Skin: normal color, warm/dry, no rash Laboratory Results Last 24 Hours Test 05/19/16 18:34 05/19/16 19:12 05/20/16 07:21 Transferrin % Saturation % 7 % Absolute Reticulocyte Count 0.08 10^6/uL Percent Reticulocyte Count 3.5 % Iron Level 14 mcg/dl Total Iron Binding Capacity 165 mcg/dl Transferrin 143 mg/dl Ferritin 140.0 ng/ml Vitamin B12 Level 847 pg/mL Folate 9.60 ng/mL White Blood Count 9.19 K/uL Red Blood Count 2.58 M/uL Hemoglobin 8.0 g/dL Hematocrit 24.5 % Mean Corpuscular Volume 95.0 fL Mean Corpuscular Hemoglobin 31.0 pg Mean Corpuscular Hemoglobin Concent 32.7 g/dl Platelet Count 177 K/uL Mean Platelet Volume 10.0 fL Neutrophils (%) (Auto) 65.4 % Lymphocytes (%) (Auto) 16.2 % Monocytes (%) (Auto) 17.3 % Eosinophils (%) (Auto) 0.7 % Basophils (%) (Auto) 0.2 % Neutrophils # (Auto) 6.01 K/uL Lymphocytes # (Auto) 1.49 K/uL Monocytes # (Auto) 1.59 K/uL Eosinophils # (Auto) 0.06 K/uL Basophils # (Auto) 0.02 K/uL RDW Standard Deviation 48.1 fL RDW Coefficient of Variation 13.9 % Immature Granulocyte % (Auto) 0.2 % Immature Granulocyte # (Auto) 0.02 K/uL Polychromasia 1+ Hypochromasia PRESENT Prothrombin Time 11.4 SECONDS Prothromb Time International Ratio 1.1 Sodium Level 142 mmol/L Potassium Level 4.1 mmol/L Chloride Level 111 mmol/L Carbon Dioxide Level 21 mmol/L Anion Gap 10.0 mmol/L Blood Urea Nitrogen 38 mg/dl Creatinine 2.80 mg/dl Est Creatinine Clear Calc Drug Dose 25.4 ml/min Estimated GFR () 23.5 Estimated GFR (Non- 20.2 BUN/Creatinine Ratio 13.5 Random Glucose 114 mg/dl Calcium Level 7.4 mg/dl Total Bilirubin 0.4 mg/dl Aspartate Amino Transf (AST/SGOT) 22 U/L Alanine Aminotransferase (ALT/SGPT) 17 U/L Alkaline Phosphatase 49 U/L Total Protein 5.6 gm/dl Albumin 2.5 gm/dl Globulin 3.1 gm/dl Albumin/Globulin Ratio 0.8 Assessment and Plan 80 years old man with Hx of BPH with chronic urinary retention with chronic indwelling grullon presented with hematuria; hematuria - failed CBI -S/P Cystoscopy, Clot Evacuation, Bipolar Transurethral Resection and Vaporization of Prostate - POD#2 continues to have minimal hematuria, failed TOV, monitor over night and DC tomorrow acute blood loss anemia, anemia study showed combined anemia of chronic disease and iron deficiency anemia -from hematuria -initiate iron supplement and stool softener transfuse one unit / consent obtained CKD 4 -records obtained from [place] - stage 4 CKD. actually current Cr better [facility] ones [facility] BPH/chronic urinary retention -chronic grullon DVT proph -pharmacologic contraindicated due to bleeding Continued [facility] stay due to: other (persistent gross hematuria) Discharge planning: home
--- NOTE | 2016-05-20 11:59 | Progress Note ---
Subjective Date of Service: May 20, 2016. Subjective Pt evaluation today including: conversation w/ patient, conversation w/ family , physical exam, chart review, lab review, conversation w/ regulatory affairs consultant pt unable to void after catheter removed today . He had 190 cc but flet ugency . Urine pink now . Was clear . Discussed pt w hospitalist . Plan to observe today and check hct for stability and D/C in am with a grullon if stable Problem List Medical Problems: (1) Hematuria Status: Acute (2) Urinary retention Status: Acute Objective Vital Signs Date Time Temp Pulse Resp B/P Pulse Ox O2 Delivery O2 Flow Rate FiO2 05/20/16 08:16 37.2 82 18 113/68 94 Room Air 05/20/16 08:00 Room Air 05/20/16 00:00 Room Air 05/19/16 23:55 37.0 95 20 136/62 92 Room Air 05/19/16 20:00 Room Air 05/19/16 16:00 91 Room Air 05/19/16 15:04 37.0 84 20 134/66 95 Room Air Laboratory Results Last 24 Hours Test 05/19/16 18:34 05/19/16 19:12 05/20/16 07:21 Transferrin % Saturation % 7 % Absolute Reticulocyte Count 0.08 10^6/uL Percent Reticulocyte Count 3.5 % Iron Level 14 mcg/dl Total Iron Binding Capacity 165 mcg/dl Transferrin 143 mg/dl Ferritin 140.0 ng/ml Vitamin B12 Level 847 pg/mL Folate 9.60 ng/mL White Blood Count 9.19 K/uL Red Blood Count 2.58 M/uL Hemoglobin 8.0 g/dL Hematocrit 24.5 % Mean Corpuscular Volume 95.0 fL Mean Corpuscular Hemoglobin 31.0 pg Mean Corpuscular Hemoglobin Concent 32.7 g/dl Platelet Count 177 K/uL Mean Platelet Volume 10.0 fL Neutrophils (%) (Auto) 65.4 % Lymphocytes (%) (Auto) 16.2 % Monocytes (%) (Auto) 17.3 % Eosinophils (%) (Auto) 0.7 % Basophils (%) (Auto) 0.2 % Neutrophils # (Auto) 6.01 K/uL Lymphocytes # (Auto) 1.49 K/uL Monocytes # (Auto) 1.59 K/uL Eosinophils # (Auto) 0.06 K/uL Basophils # (Auto) 0.02 K/uL RDW Standard Deviation 48.1 fL RDW Coefficient of Variation 13.9 % Immature Granulocyte % (Auto) 0.2 % Immature Granulocyte # (Auto) 0.02 K/uL Polychromasia 1+ Hypochromasia PRESENT Prothrombin Time 11.4 SECONDS Prothromb Time International Ratio 1.1 Sodium Level 142 mmol/L Potassium Level 4.1 mmol/L Chloride Level 111 mmol/L Carbon Dioxide Level 21 mmol/L Anion Gap 10.0 mmol/L Blood Urea Nitrogen 38 mg/dl Creatinine 2.80 mg/dl Est Creatinine Clear Calc Drug Dose 25.4 ml/min Estimated GFR () 23.5 Estimated GFR (Non- 20.2 BUN/Creatinine Ratio 13.5 Random Glucose 114 mg/dl Calcium Level 7.4 mg/dl Total Bilirubin 0.4 mg/dl Aspartate Amino Transf (AST/SGOT) 22 U/L Alanine Aminotransferase (ALT/SGPT) 17 U/L Alkaline Phosphatase 49 U/L Total Protein 5.6 gm/dl Albumin 2.5 gm/dl Globulin 3.1 gm/dl Albumin/Globulin Ratio 0.8 Assessment and Plan Leave [facility] and have pt call [phone] for f/u in 2 weeks for voiding trial w Dr. Kelvin pagan for several days Continued [facility] stay due to: other (persistent gross hematuria) Discharge planning: home
[2016-05-20] MEDS: CIPROFLOXACIN 500 MG TAB PO SCH (14:20)
[2016-05-20] MEDS: FERROUS SULFATE 325 MG TAB PO SCH (17:05)
[2016-05-20] MEDS ORDERED: NURSING DECISION MEDICATION ORDER SCH (18:45)
[2016-05-20] MEDS ORDERED: SODIUM CHLORIDE 0.65% NA SOLN 45 ML (OCEAN) PRN (20:00)
[2016-05-20] MEDS ORDERED: CIPROFLOXACIN / D5W 400 MG in PREMIXED IN D5W 200 ML IV SCH (21:00)
[2016-05-21 00:09] VITALS: BP 110/63; PULSE 80; TEMP 37.1; O2SAT 92
[2016-05-21 07:41] VITALS: BP 110/60; PULSE 80; TEMP 37.1; O2SAT 95
[2016-05-21 07:47] LABS: HEMATOCRIT 25.2 % (42-52); MEAN CELL VOLUME 91.6 fL (80-100); MEAN CORPUSCULAR HEMOGLOBIN 30.9 pg (25-34); MEAN CORPUSCULAR HGB CONC 33.7 g/dl (32-36); MEAN PLATELET VOLUME 9.9 fL (7.4-10.4); PLATELET COUNT 173 K/uL (130-400); RED BLOOD COUNT 2.75 M/uL (4.7-6.1)
[2016-05-21] MEDS: CHOLECALCIFEROL 1000 INTER.UNIT TAB PO SCH (07:53)
[2016-05-21] MEDS: FINASTERIDE 5 MG TAB PO SCH (07:53)
[2016-05-21] MEDS: MULTIVITAMIN TAB PO SCH (07:53)
[2016-05-21] MEDS: CYANOCOBALAMIN 100 MCG TAB (VIT B-12) PO SCH (07:53)
[2016-05-21] MEDS: CIPROFLOXACIN 500 MG TAB PO SCH (07:53)
[2016-05-21] MEDS: FERROUS SULFATE 325 MG TAB PO SCH (07:53)
[2016-05-21] MEDS ORDERED: POLYETHYLENE (MIRALAX) 17 GM PACK PO SCH (08:00)
[2016-05-21] MEDS ORDERED: SENNA 8.6 MG TAB PO SCH (08:00)
[2016-05-21 08:19] LABS: BASO % 0.1 %; BASO ABS # 0.01 K/uL (0-0.2); COMPLETE YES; EOS % 1.1 %; IG% 0.2 %; LYMPH % 20.7 %; LYMPH ABS # 1.84 K/uL (1.2-3.4); MONO % 20.4 %; NEUT % 57.5 %
[2016-05-21 08:24] LABS: BUN/CREATININE RATIO 14.3 (10-20); CALCIUM 7.4 mg/dl (8.5-10.1); CREATININE 2.6 mg/dl (0.60-1.40); MAGNESIUM 2.2 mg/dl (1.8-2.4); POTASSIUM 3.9 mmol/L (3.5-5.1)
[2016-05-21 08:26] LABS: ALB/GLOB RATIO 0.7 (0.9-2)
[2016-05-21] MEDS ORDERED: MRLP17 PO (08:26)
[2016-05-21] MEDS ORDERED: PRS5 PO (08:26)
[2016-05-21] MEDS ORDERED: FRRS300 PO (08:26)
[2016-05-21] MEDS ORDERED: SNK PO (08:26)
[2016-05-21] MEDS ORDERED: CPR500 PO (08:26)
[2016-05-21] MEDS ORDERED: OXYC-57 PO (08:26)
--- NOTE | 2016-05-21 08:27 | Discharge Instructions ---
Discharge Instructions Admission Admission Date: May 13, 2016 at 20:41 Admission Diagnosis: Hematuria. Discharge Care Plan - Problem: Medical Problems: (1) Hematuria (2) Urinary retention Care Plan - Goal(s): Decrease discomfort Care Plan - Instructions: Activity Recommendations: no limitations Recommended Home Diet: 1800 Darius Wt Reduction, AHA Phase I (2gmNa/LoCho), Regular VTE Core Measure Inpt VTE Proph given/why not?: SCD's Follow Up Follow-Up: follow up with urologist, in 2 weeks Ruthann Gamble Recommendations: Call your doctor if: * Temperature above 101 degrees * Pain not relieved by pain medicine ordered * There is increased drainage or redness from any incision * You have any unanswered questions or concerns. Your Doctors Instructions noted above were prepared by provider Anne Low.
[2016-05-21 09:34] VITALS: BP 110/60; PULSE 80; TEMP 37.1; O2SAT 95
--- NOTE | 2016-05-21 19:43 | Discharge Summary ---
Discharge Summary Admission Date: May 13, 2016 at 20:41 Discharge Date: May 21, 2016 Discharge Disposition: Home Immunizations: Have You Had Influenza Vaccine: No History of Tetanus Vaccine?: No History of Pneumococcal: Yes Pneumococcal Date: August 28, 2009 History of Hepatitis B Vaccine: No Medication Reconciliation New Medications: Oxycodone/Acetaminophen 5MG/325MG (Percocet 5MG/325MG) Tab 1 TABLET PO Q6H PRN for Pain for 30 Days, #30 TAB Ciprofloxacin (Ciprofloxacin HCl) 500 Mg Tab 500 MG PO DAILY for 3 Days, #6 TAB Ferrous Sulfate (Ferrous Sulfate) 325 Mg Tab 325 MG PO BIDM for 30 Days, #60 TAB Finasteride (Finasteride) 5 Mg Tab 5 MG PO QAM for 30 Days, #30 TAB Polyethylene (Miralax) 17 Gm Pow 17 GM PO DAILY for 30 Days, #30 PKT Senna (Senna Lax) 8.6 Mg Tab 8.6 MG PO BID for 30 Days, #60 TAB Continued Medications: Cholecalciferol (Vitamin D 1000 Unit) 1,000 Unit Cap 1000 INTER.UNIT PO DAILY, CAP Cyanocobalamin (Vitamin B12 100 Mcg) 100 Mcg Tab 100 MCG PO DAILY, TAB Multiple Vitamin (Multivitamin) 1 Tab Tab 1 TAB PO DAILY, TAB Referrals At Discharge Follow up Referrals: Urologist Referral - Within 1-2 Weeks with Joselo Warren MD, Urology Leave [facility] and have pt call [phone] for f/u in 2 weeks for voiding trial w Dr. Warren Discharge Exam Review of Systems: Constitutional: No chills, No fatigue, No fever, No problem reported, No sweats, No weakness, No weight loss Eyes: No diplopia, No discharge, No eye pain, No problem reported, No redness, No worsening of vision ENT: No dental problems, No hearing loss, No nasal symptoms, No problem reported, No sore throat, No tinnitus, No trouble swallowing, No unusual epistaxis Respiratory: No cough, No dyspnea at rest, No dyspnea on exertion, No hemoptysis, No problem reported, No shortness of breath, No sputum, No wheezing Cardiovascular: No PND, No chest pain, No claudication, No edema, No orthopnea, No palpitations, No problem reported Abdomen: No GI bleeding, No constipation, No diarrhea, No nausea, No pain, No problem reported, No vomiting Musculoskeletal: No calf pain, No joint pain, No muscle pain, No problem reported, No swelling Genitourinary - Female: No dysmenorrhea, No dysuria, No hematuria, No menorrhagia, No metrorrhagia, No , No problem reported, No rash, No urinary frequency, No urinary incontinence, No urinary retention, No urinary urgency, No vaginal bleeding, No vaginal discharge, No vaginal itching, No vulvodynia Genitourinary - Male: No dysuria, No hematuria, No impotence, No lesions, No penile discharge, No problem reported, No urinary frequency, No urinary hesitancy, No urinary incontinence, No urinary retention, No urinary urgency Neurologic: No balance problems, No memory loss, No numbness/tingling, No paralysis, No problem reported, No vertigo, No weakness Psychiatric: No anhedonism, No anxiety, No depression symptoms, No insomnia , No problem reported, No substance abuse Endocrine: No excessive thirst, No excessive urination, No fatigue, No problem reported Hematologic / Lymphatic: No abnormal bleeding/bruising, No clotting problems , No night sweats, No problem reported, No swollen lymph nodes Integumentary: No bleeding, No color change, No itch, No new/changing skin lesions, No problem reported, No rash Physical Exam: General Appearance: WD/WN, no apparent distress Eyes: normal inspection, EOMI ENT: normal ENT inspection, hearing grossly normal Neck: supple Respiratory/Chest: chest non-tender, lungs clear, normal breath sounds, no respiratory distress, no accessory muscle use Cardiovascular: regular rate, rhythm, no edema, no gallop, no JVD, no murmur Abdomen / GI: normal bowel sounds, non tender, soft, no organomegaly, no pulsatile mass, normal rectal exam, occult blood negative, + pertinent finding ( grullon in place, urine is clear) Extremities: normal inspection, no calf tenderness, normal capillary refill , no pedal edema Neurologic/Psychiatric: glass installer II-XII nml as tested, no motor/sensory deficits , alert, normal mood/affect, normal reflexes, oriented x 3 Skin: normal color, warm/dry, no rash Hospital Course 80 years old man with Hx of BPH with chronic urinary retention with chronic indwelling grullon presented with hematuria. urologist consult appreciated, he received CBI X 3 days failed CBI. S/P Cystoscopy, Clot Evacuation, Bipolar Transurethral Resection and Vaporization of Prostate unfortunately failed TOV, will be discharged with grullon and in [address] Warren and will attempt TVO he was also found to have acute blood loss anemia, anemia study showed combined anemia of chronic disease and iron deficiency anemia likely from hematuria initiated iron supplement and stool softener S/P transfuse one unit 05/21, Hgb today is 8.5 Cleared for discharge by urologist refused PT/OT This includes examination of the patient, discharge planning, medication reconciliation, and communication with other providers. Discharge Instructions Please refer to the electronic Patient Visit Report (Discharge Instructions) for additional information.
== END 2016-05-21 10:46 | disposition home health service (06) | DRG 666 ==
LOC: ENRESERVTM → ENRESERVDT → C.EDB 14:43 → C.MSW 20:41 → C.2T 05-14 00:50 → C.MS4W 05-15 12:40
PROVIDERS: ADMIT Hospitalist; ATTEND Internal Medicine
PROC: 0VB08ZZ Excision of Prostate, Via Natural or Artificial Opening Endoscopic (ICD-10-PCS; principal; 2016-05-18 14:30)
PROC: 0TCB8ZZ Extirpation of Matter from Bladder, Via Natural or Artificial Opening Endoscopic (ICD-10-PCS; principal; 2016-05-18 14:30)
PROC: 0T9B80Z Drainage of Bladder with Drainage Device, Via Natural or Artificial Opening Endoscopic (ICD-10-PCS; principal; 2016-05-18 14:30)
DX: R31.9 Hematuria, unspecified (principal); D62 Acute posthemorrhagic anemia; N40.1 Benign prostatic hyperplasia with lower urinary tract symptoms; N18.4 Chronic kidney disease, stage 4 (severe); R33.8 Other retention of urine

== ENCOUNTER 2017-03-07 22:01 | Emergency (ER) | payer OTHER ==
[~2017-03-07] VITALS: Ht 193 cm; Wt 81.6 kg
[~2017-03-07 22:01] MED LIST changes: -CHOL100010 PO; +CHOL100027 PO; +CPR500 PO; +FRRS300 PO; +MRLP17 PO; +PRS5 PO; +SNK PO
[2017-03-07 22:12] VITALS: Ht 193 cm; Wt 81.6 kg
[2017-03-07] MEDS ORDERED: MoRPHine SULFATE 4 MG/ML 1 ML CARP\\VIAL IV STA (22:21)
[2017-03-07] MEDS ORDERED: ONDANSETRON INJ 2 MG/ML 2 ML VIAL IV STA (22:21)
--- NOTE | 2017-03-07 22:44 | EMERGENCY ROOM VISIT NOTE ---
History Report prepared by Ludwig: Haritha Kern Under the Supervision of: Dilma KayO. First contact with patient: 22:17 Chief Complaint: ABDOMINAL PAIN Stated Complaint: STOMACH PAIN History of Present Illness The patient is an 81 year old male who presents to the Emergency Room with complaints of persistent abdominal pain starting 1500 today. The pain started after he ate a cheese sandwich, baked potato, and some steak. He has never had this abdominal pain before. His abdomen is distended. He reports fever. He vomited several times. He denies any history of abdominal surgeries. Source of History: patient Onset: 1500 Position: abdomen Quality: other (pain) Timing: other (persistent) Associated Symptoms: + fevers, + vomiting Review of Systems See HPI for pertinent positives and negatives. A total of ten systems were reviewed and were otherwise negative. 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 Social History Smoking Status: Never Smoker Alcohol Use: none Drug Use: none Marital Status: Housing Status: lives with family Occupation Status: retired Current/Historical Medications Scheduled Cholecalciferol (Vitamin D 1000 Unit), 1,000 INTER.UNIT PO DAILY Ciprofloxacin (Ciprofloxacin HCl), 500 MG PO DAILY Cyanocobalamin (Vitamin B12 100 Mcg), 100 MCG PO DAILY Ferrous Sulfate (Ferrous Sulfate), 325 MG PO BIDM Finasteride (Finasteride), 5 MG PO QAM Multiple Vitamin (Multivitamin), 1 TAB PO DAILY Polyethylene (Miralax), 17 GM PO DAILY Senna (Senna Lax), 8.6 MG PO BID Allergies Coded Allergies: No Known Allergies (Unverified , 06/30/15) Physical Exam Vital Signs Date Time Temp Pulse Resp B/P (MAP) Pulse Ox O2 Delivery O2 Flow Rate FiO2 03/08/17 01:09 68 176/97 94 Room Air 03/07/17 22:57 59 03/07/17 22:12 36.4 92 18 192/111 97 Room Air Physical Exam GENERAL: Awake, alert, well-appearing, in no distress HENT: Normocephalic, atraumatic. Oropharynx unremarkable. EYES: Normal conjunctiva. Sclera non-icteric. NECK: Supple. No nuchal rigidity. FROM. No JVD. RESPIRATORY: Clear to auscultation. CARDIAC: Regular rate, normal rhythm. Extremities warm and well perfused. Pulses equal. ABDOMEN: Distended. Tympanic. Decreased bowel sounds in all quadrants. No rebound, guarding, rigidity. No masses. RECTAL: Deferred. MUSCULOSKELETAL: Chest examination reveals no tenderness. The back is symmetrical on inspection without obvious abnormality. There is no CVA tenderness to palpation. No joint edema. LOWER EXTREMITIES: Calves are equal size bilaterally and non-tender. No edema. No discoloration. NEURO: Normal sensorium. No sensory or motor deficits noted. SKIN: No rash or jaundice noted. Medical Decision & Procedures ER Provider Diagnostic Interpretation: Radiology results as stated below per my review and [facility] radiologist interpretation: CT Abdomen & Pelvis without contrast: Compared to 07/09/2016. Mild bladder wall thickening. Lobulated density in the posterior inferior bladder, cannot exclude mass. Differential considerations hemorrhage or prostatic tissue. Nonspecific bilateral perinephric stranding. No significant hydronephrosis or evidence of ureteral stone. Diverticulosis. Unremarkable appendix. No evidence of small bowel obstruction. Small hiatal hernia. Mild distal esophageal wall thickening. Mild basilar atelectatic changes. Additional incidental findings. Laboratory Results 03/07/17 22:30 Red Blood Count 5.76, Mean Corpuscular Volume 91.7, Mean Corpuscular Hemoglobin 30.7, Mean Corpuscular Hemoglobin Concent 33.5, Mean Platelet Volume 9.9, Neutrophils (%) (Auto) 74.0, Lymphocytes (%) (Auto) 17.9, Monocytes (%) (Auto) 6.9, Eosinophils (%) (Auto) 0.4, Basophils (%) (Auto) 0.4, Neutrophils # (Auto) 7.97, Lymphocytes # (Auto) 1.92, Monocytes # (Auto) 0.74, Eosinophils # (Auto) 0.04, Basophils # (Auto) 0.04 03/07/17 22:30 Test 03/07/17 22:30 03/08/17 00:30 White Blood Count 10.75 K/uL (4.8-10.8) Red Blood Count 5.76 M/uL (4.7-6.1) Hemoglobin 17.7 g/dL (14.0-18.0) Hematocrit 52.8 % (42-52) Mean Corpuscular Volume 91.7 fL (80-100) Mean Corpuscular Hemoglobin 30.7 pg (25-34) Mean Corpuscular Hemoglobin Concent 33.5 g/dl (32-36) Platelet Count 238 K/uL (130-400) Mean Platelet Volume 9.9 fL (7.4-10.4) Neutrophils (%) (Auto) 74.0 % Lymphocytes (%) (Auto) 17.9 % Monocytes (%) (Auto) 6.9 % Eosinophils (%) (Auto) 0.4 % Basophils (%) (Auto) 0.4 % Neutrophils # (Auto) 7.97 K/uL (1.4-6.5) Lymphocytes # (Auto) 1.92 K/uL (1.2-3.4) Monocytes # (Auto) 0.74 K/uL (0.11-0.59) Eosinophils # (Auto) 0.04 K/uL (0-0.5) Basophils # (Auto) 0.04 K/uL (0-0.2) RDW Standard Deviation 43.1 fL (36.4-46.3) RDW Coefficient of Variation 12.9 % (11.5-14.5) Immature Granulocyte % (Auto) 0.4 % Immature Granulocyte # (Auto) 0.04 K/uL (0.00-0.02) Anion Gap 8.0 mmol/L (3-11) Est Creatinine Clear Calc Drug Dose 25.7 ml/min Estimated GFR () 26.0 Estimated GFR (Non- 22.4 BUN/Creatinine Ratio 7.7 (10-20) Calcium Level 10.4 mg/dl (8.5-10.1) Total Bilirubin 0.8 mg/dl (0.2-1) Direct Bilirubin mg/dl (0-0.2) Aspartate Amino Transf (AST/SGOT) 24 U/L (15-37) Alanine Aminotransferase (ALT/SGPT) 29 U/L (12-78) Alkaline Phosphatase 94 U/L (45-117) Total Protein 8.3 gm/dl (6.4-8.2) Albumin 3.6 gm/dl (3.4-5.0) Lipase 237 U/L (73-393) Chemistry Specimen Hemolysis Urine Color YELLOW Urine Appearance TURBID (CLEAR) Urine pH 6.0 (4.5-7.5) Urine Specific [place] 1.016 (1.000-1.030) Urine Protein 3+ (NEG) Urine Glucose (UA) NEG (NEG) Urine Ketones NEG (NEG) Urine Occult Blood 2+ (NEG) Urine Nitrite NEG (NEG) Urine Bilirubin NEG (NEG) Urine Urobilinogen NEG (NEG) Urine Leukocyte Esterase LARGE (NEG) Urine WBC (Auto) >30 /hpf (0-5) Urine RBC (Auto) >30 /hpf (0-4) Urine Hyaline Casts (Auto) 1-5 /lpf (0-5) Urine Epithelial Cells (Auto) 20-30 /lpf (0-5) Urine Bacteria (Auto) 2+ (NEG) Urine Yeast (Auto) (NONE PRSENT) Laboratory results reviewed by me Medications Administered Medications (Trade) Dose Ordered Sig/Clay Route Start Time Stop Time Status Last Admin Dose Admin Ondansetron HCl (Zofran Inj) 4 mg NOW STAT IV 03/07/17 22:21 03/07/17 22:22 DC 03/07/17 22:40 4 MG Morphine Sulfate (MoRPHine SULFATE INJ) 4 mg NOW STAT IV 03/07/17 22:21 03/07/17 22:22 DC 03/07/17 22:40 4 MG ED Course 2217: The patient was evaluated in room C1B. A complete history and physical exam was performed. 2221: Morphine Sulfate 4 mg IV, Zofran Inj 4 mg IV. 0129: Cipro Tab 500 mg PO. 0133: I reevaluated the patient. Discussed results and discharge instructions: he verbalized understanding and agreement. The patient is ready for discharge. Medical Decision Differential diagnoses include but are not limited to; bowel obstruction, gastritis, gastroenteritis, cholecystitis, diverticulitis. Patient states to me that he's had a history of prostate issues. Patient denies current urinary symptoms. Patient has been followed by Dr. Warren from urology in the past. Repeat examination patient 1:35 AM patient's abdomen soft he states no current abdominal pain. I discussed evaluation with the patient. Patient was found potentially of urinary tract infection I will send the urine for culture and patient also was found on CT to possibly have a bladder mass which I've asked the patient follow-up with Dr. Warren regarding this. Medication Reconcilliation Current Medication List: was personally reviewed by me Blood Pressure Screening Patient's blood pressure: Elevated blood pressure Blood pressure disposition: Elevated BP felt to be situational Impression Primary Impression: Abdominal pain Additional Impressions: UTI (urinary tract infection) Bladder mass Scribe Attestation The scribe's documentation has been prepared under my direction and personally reviewed by me in its entirety. I confirm that the note above accurately reflects all work, treatment, procedures, and medical decision making performed by me. Departure Information Dispostion Home / Self-Care Prescriptions Ciprofloxacin Hcl (CIPRO) 500 Mg Tab 500 MG PO BID, #14 TAB Prov: Felix Patino, DO 03/08/17 Referrals No Doctor, Assigned (PCP) Joselo Warren MD, Urology Patient Instructions Abdominal Pain - [facility], My [facility], UTI Additional Instructions Follow-up with Dr. Warren regarding the potential bladder mass on CT. Continue taking antibiotics until follow-up. Return for worsening pain Problem Qualifiers
[2017-03-07 22:56] LABS: BASO % 0.4 %; BASO ABS # 0.04 K/uL (0-0.2); COMPLETE YES; EOS % 0.4 %; HEMATOCRIT 52.8 % (42-52); IG% 0.4 %; LYMPH % 17.9 %; LYMPH ABS # 1.92 K/uL (1.2-3.4); MEAN CELL VOLUME 91.7 fL (80-100); MEAN CORPUSCULAR HEMOGLOBIN 30.7 pg (25-34); MEAN CORPUSCULAR HGB CONC 33.5 g/dl (32-36); MEAN PLATELET VOLUME 9.9 fL (7.4-10.4); MONO % 6.9 %; PLATELET COUNT 238 K/uL (130-400); RED BLOOD COUNT 5.76 M/uL (4.7-6.1); WHITE BLOOD COUNT 10.75 K/uL (4.8-10.8)
[2017-03-07 23:44] LABS: ALKALINE PHOSPHATASE 94 U/L (45-117); ALT/SGPT 29 U/L (12-78); AST/SGOT 24 U/L (15-37); BLOOD UREA NITROGEN 20 mg/dl (7-18); BUN/CREATININE RATIO 7.7 (10-20); CALCIUM 10.4 mg/dl (8.5-10.1); CARBON DIOXIDE 26 mmol/L (21-32); CHLORIDE 105 mmol/L (98-107); CREATININE 2.56 mg/dl (0.60-1.40); GLUCOSE 142 mg/dl (70-99); POTASSIUM 4.3 mmol/L (3.5-5.1); SODIUM 139 mmol/L (136-145)
[2017-03-08 00:54] LABS: URINE APPEARANCE TURBID (CLEAR); URINE BILIRUBIN NEG (NEG); URINE COLOR YELLOW; URINE EPITHELIAL CELL AUTO 20-30 /lpf (0-5); URINE NITRITE NEG (NEG); URINE SPECIFIC GRAVITY 1.016 (1.000-1.030); UROBILINOGEN NEG (NEG); ZZUR CULT IF INDIC CLEAN CATCH YES
[2017-03-08 00:59] LABS: MANUAL MICROSCOPIC REQUIRED? NO; REVIEW REQ? YES
[2017-03-08] MEDS ORDERED: CIPROFLOXACIN 500 MG TAB PO STA (01:29)
[2017-03-08] MEDS ORDERED: CIPR-255 PO (01:39)
[2017-03-08 01:52] VITALS: BP 176/97; PULSE 68; TEMP 36.4; O2SAT 94
--- NOTE | 2017-03-08 07:32 | DIAGNOSTIC IMAGING REPORT ---
ABDOMEN AND PELVIS CT WITHOUT CONTRAST CT DOSE: 1002.97 mGy.cm HISTORY: Acute generalized abdominal pain pain TECHNIQUE: Multiaxial CT images of the abdomen and pelvis were performed without contrast. A dose lowering technique was utilized adhering to the principles of ALARA. COMPARISON STUDY: CT abdomen and pelvis 07/13/2012. FINDINGS: Linear subsegmental bibasilar opacities suggest atelectasis and/or minimal pleural parenchymal scarring. There is no pneumatosis or pneumoperitoneum. The imaged inferior cardiac chambers are mildly enlarged. Gallbladder is mildly contracted. The liver, and adrenal glands are unremarkable. The bladder is mildly contracted. Scattered calcifications throughout the spleen suggest prior granulomatous disease. Scattered punctate calcifications throughout the pancreatic parenchyma are compatible with chronic pancreatitis. No pancreatic ductal dilation identified. Mild right and moderate left renal atrophy with perinephric stranding bilaterally which is nonspecific. Lobular contour of the kidneys with 1.2 cm exophytic cyst of the interpolar right kidney. 1.2 cm cyst is noted involving the inferior pole left kidney. No renal calculi or hydronephrosis. Markedly enlarged prostate is again seen measuring up to 7.0 x 6.2 cm. Prostate tissue causes mass effect upon the floor of the urinary bladder. Lobular soft tissue attenuation the floor of the bladder is noted which is likely prostatic tissue. Mild diffuse wall thickening of the bladder with mild surrounding inflammatory stranding. Moderate atherosclerosis of the aorta. No bulky adenopathy. Small sliding-type hiatal hernia. Small duodenal diverticulum. There is extensive colonic diverticulosis without evidence of acute diverticulitis. No evidence of acute appendicitis. Soft tissues are unremarkable. Bones appear intact and are mildly demineralized. Moderate fatty atrophy of the left gluteus medius musculature. IMPRESSION: 1. Markedly enlarged prostate is again seen causing mass effect upon the floor of the urinary bladder. Lobular soft tissue attenuation of the dependent urinary bladder is likely prostatic tissue and/or bladder debris rather than intraluminal bladder mass. This could be correlated with cystoscopy. 2. Moderate wall thickening of the bladder with surrounding inflammatory stranding is suspicious for cystitis. Correlate with urinalysis. 3. Extensive colonic diverticulosis without diverticulitis. 4. Mild right and moderate left renal atrophy. 5. Additional findings as above. Electronically signed by: Thanh Segal M.D. 03/08/2017 7:31 AM Dictated Date/Time: 03/08/2017 7:17 AM
== END 2017-03-08 01:53 | disposition home or self-care (01) ==
LOC: C.EDB 22:01 → C.EDC 03-08 01:53
DX: R10.9 Unspecified abdominal pain (principal); N39.0 Urinary tract infection, site not specified; N32.9 Bladder disorder, unspecified; N40.0 Benign prostatic hyperplasia without lower urinary tract symptoms; I12.9 Hypertensive chronic kidney disease with stage 1 through stage 4 chronic kidney disease, or unspecified chronic kidney disease; N18.9 Chronic kidney disease, unspecified

== ENCOUNTER 2017-03-28 20:12 | Emergency (ER) | payer OTHER ==
[~2017-03-28] VITALS: Ht 193 cm; Wt 106.5 kg
[~2017-03-28 20:12] MED LIST changes: +CIPR-255 PO
[2017-03-28 20:23] VITALS: Ht 193 cm; Wt 106.5 kg
--- NOTE | 2017-03-28 20:33 | EMERGENCY ROOM VISIT NOTE ---
History Report prepared by Ludwig: Abhishek Murphy Under the Supervision of: Dr. Nestor Barnes M.D. First contact with patient: 20:25 Chief Complaint: ABDOMINAL PAIN Stated Complaint: ABDOMINAL PAIN History of Present Illness The patient is an 81 year old male who presents to the Emergency Room with complaints of intermittent abdominal pain beginning today. The patient states that he was at the emergency department a few weeks ago and diagnosed with a urine infection. He notes that he was put on antibiotics for his symptoms, but does not currently take any antibiotics because he ran out. He denies vomiting, urinary symptoms, and diarrhea. He reports that he is having normal bowel movements. The patient states that his pain is located at the front of his abdomen. He rates his pain as an 8/10. Source of History: patient Onset: today Position: abdomen Symptom Intensity: 8/10 Timing: intermittent Associated Symptoms: No vomiting, No diarrhea, No urinary symptoms Review of Systems See HPI for pertinent positives & negatives. A total of 10 systems reviewed and were otherwise negative. 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 Social History Smoking Status: Never Smoker Alcohol Use: none Drug Use: none Marital Status: Housing Status: lives with family Occupation Status: retired Current/Historical Medications No Active Prescriptions or Reported Meds Allergies Coded Allergies: No Known Allergies (Unverified , 03/28/17) Physical Exam Vital Signs Date Time Temp Pulse Resp B/P (MAP) Pulse Ox O2 Delivery O2 Flow Rate FiO2 03/28/17 21:44 36.8 92 18 190/99 95 03/28/17 20:23 36.8 92 18 190/99 95 Room Air Physical Exam GENERAL: Patient is well appearing and in no acute distress. HEENT: No acute trauma, normocephalic atraumatic, mucous membranes moist, no nasal congestion, no scleral icterus. NECK: No stridor, no adenopathy, no meningismus, trachea is midline. LUNGS: No dyspnea. Clear to auscultation and equal bilaterally. No wheeze, no rhonchi. HEART: Regular rate and rhythm. No murmurs, rubs, gallops appreciated. ABDOMEN: Soft, periumbilical abdomen discomfort, bowel sounds positive, no masses appreciated, no peritonitis. BACK: No midline tenderness, no CVA tenderness EXTREMITIES: Normal motion all extremities, no cyanosis, no edema. NEUROLOGIC: Alert and oriented, no acute motor or sensory deficits, no focal weakness, cranial nerves grossly intact. SKIN: No rash, no jaundice, no diaphoresis. Medical Decision & Procedures Laboratory Results 03/28/17 20:40 Red Blood Count 5.18, Mean Corpuscular Volume 92.5, Mean Corpuscular Hemoglobin 30.9, Mean Corpuscular Hemoglobin Concent 33.4, Mean Platelet Volume 9.9, Neutrophils (%) (Auto) 52.4, Lymphocytes (%) (Auto) 31.9, Monocytes (%) (Auto) 12.9, Eosinophils (%) (Auto) 2.0, Basophils (%) (Auto) 0.5, Neutrophils # (Auto ) 4.19, Lymphocytes # (Auto) 2.55, Monocytes # (Auto) 1.03, Eosinophils # (Auto ) 0.16, Basophils # (Auto) 0.04 03/28/17 20:40 Test 03/28/17 20:40 03/28/17 20:52 White Blood Count 7.99 K/uL (4.8-10.8) Red Blood Count 5.18 M/uL (4.7-6.1) Hemoglobin 16.0 g/dL (14.0-18.0) Hematocrit 47.9 % (42-52) Mean Corpuscular Volume 92.5 fL (80-100) Mean Corpuscular Hemoglobin 30.9 pg (25-34) Mean Corpuscular Hemoglobin Concent 33.4 g/dl (32-36) Platelet Count 162 K/uL (130-400) Mean Platelet Volume 9.9 fL (7.4-10.4) Neutrophils (%) (Auto) 52.4 % Lymphocytes (%) (Auto) 31.9 % Monocytes (%) (Auto) 12.9 % Eosinophils (%) (Auto) 2.0 % Basophils (%) (Auto) 0.5 % Neutrophils # (Auto) 4.19 K/uL (1.4-6.5) Lymphocytes # (Auto) 2.55 K/uL (1.2-3.4) Monocytes # (Auto) 1.03 K/uL (0.11-0.59) Eosinophils # (Auto) 0.16 K/uL (0-0.5) Basophils # (Auto) 0.04 K/uL (0-0.2) RDW Standard Deviation 45.9 fL (36.4-46.3) RDW Coefficient of Variation 13.6 % (11.5-14.5) Immature Granulocyte % (Auto) 0.3 % Immature Granulocyte # (Auto) 0.02 K/uL (0.00-0.02) Anion Gap 7.0 mmol/L (3-11) Est Creatinine Clear Calc Drug Dose 28.2 ml/min Estimated GFR () 24.3 Estimated GFR (Non- 21.0 BUN/Creatinine Ratio 8.2 (10-20) Calcium Level 8.8 mg/dl (8.5-10.1) Total Bilirubin 0.9 mg/dl (0.2-1) Direct Bilirubin 0.2 mg/dl (0-0.2) Aspartate Amino Transf (AST/SGOT) 20 U/L (15-37) Alanine Aminotransferase (ALT/SGPT) 26 U/L (12-78) Alkaline Phosphatase 86 U/L (45-117) Total Protein 7.8 gm/dl (6.4-8.2) Albumin 3.5 gm/dl (3.4-5.0) Lipase 231 U/L (73-393) Urine Color YELLOW Urine Appearance CLEAR (CLEAR) Urine pH 6.5 (4.5-7.5) Urine Specific [place] 1.018 (1.000-1.030) Urine Protein 1+ (NEG) Urine Glucose (UA) NEG (NEG) Urine Ketones NEG (NEG) Urine Occult Blood NEG (NEG) Urine Nitrite NEG (NEG) Urine Bilirubin NEG (NEG) Urine Urobilinogen NEG (NEG) Urine Leukocyte Esterase TRACE (NEG) Urine WBC (Auto) 5-10 /hpf (0-5) Urine RBC (Auto) 0-4 /hpf (0-4) Urine Hyaline Casts (Auto) 1-5 /lpf (0-5) Urine Epithelial Cells (Auto) 20-30 /lpf (0-5) Urine Bacteria (Auto) NEG (NEG) Laboratory results as reviewed by [place]. ED Course 2028: The patient was evaluated in room C10. A complete history and physical exam was performed. 2125: I reevaluated and updated the patient. He is feeling better and would like to go home. 2144: Reevaluated the patient. Discussed results and discharge instructions: he verbalized understanding and agreement. The patient is ready for discharge. Medical Decision Differential: Appendicitis, Diverticulitis, PUD/Gastritis, Biliary Pathology, UTI, Pyelonephritis, Renal Colic, Bowel Obstruction, Aortic Pathology, Acute Coronary Syndrome, amongst other pathologies entertained. 81 yr old male with vague alisha-umbilical pain with benign exam who notes symptoms seem to have started after swallowing chewing tobacco. Labs unremarkable. UA without evidence of infection at this time. He wishes to get home to his . He will follow up tomorrow with his urologist. He is aware of symptoms requiring return. I discussed fact he should see PCP and talk about GI evaluation (scope possible). CT was just done a few weeks ago and I feel repeat not indicated. He denies urinary pain nor rectal/pelvic discomfort. Blood Pressure Screening Patient's blood pressure: Elevated blood pressure Blood pressure disposition: Elevated BP felt to be situational Impression Primary Impression: Periumbilical discomfort Scribe Attestation The scribe's documentation has been prepared under my direction and personally reviewed by me in its entirety. I confirm that the note above accurately reflects all work, treatment, procedures, and medical decision making performed by me. Departure Information Dispostion Home / Self-Care Prescriptions No Active Prescriptions or Reported Meds Referrals No Doctor, Assigned (PCP) Forms HOME CARE DOCUMENTATION FORM, IMPORTANT VISIT INFORMATION Patient Instructions My [facility] Additional Instructions Keep well hydrated. Follow up with your primary provider. Return if vomiting, worsening pain, bloody stools, urinary burning/frequency or other concerns. We are always here to help.
[2017-03-28 20:56] LABS: BASO % 0.5 %; BASO ABS # 0.04 K/uL (0-0.2); COMPLETE YES; HEMATOCRIT 47.9 % (42-52); IG% 0.3 %; LYMPH % 31.9 %; LYMPH ABS # 2.55 K/uL (1.2-3.4); MEAN CELL VOLUME 92.5 fL (80-100); MEAN CORPUSCULAR HEMOGLOBIN 30.9 pg (25-34); MEAN CORPUSCULAR HGB CONC 33.4 g/dl (32-36); MEAN PLATELET VOLUME 9.9 fL (7.4-10.4); MONO % 12.9 %; NEUT % 52.4 %; PLATELET COUNT 162 K/uL (130-400); RED BLOOD COUNT 5.18 M/uL (4.7-6.1); WHITE BLOOD COUNT 7.99 K/uL (4.8-10.8)
[2017-03-28 21:02] LABS: MANUAL MICROSCOPIC REQUIRED? NO; REVIEW REQ? NO; URINE APPEARANCE CLEAR (CLEAR); URINE BILIRUBIN NEG (NEG); URINE COLOR YELLOW; URINE EPITHELIAL CELL AUTO 20-30 /lpf (0-5); URINE NITRITE NEG (NEG); URINE PH 6.5 (4.5-7.5); URINE SPECIFIC GRAVITY 1.018 (1.000-1.030); UROBILINOGEN NEG (NEG); ZZUR CULT IF INDIC CLEAN CATCH NO
[2017-03-28 21:18] LABS: BUN/CREATININE RATIO 8.2 (10-20); CALCIUM 8.8 mg/dl (8.5-10.1); CREATININE 2.7 mg/dl (0.60-1.40); POTASSIUM 4.1 mmol/L (3.5-5.1)
[2017-03-28 21:44] VITALS: BP 190/99; PULSE 92; TEMP 36.8; O2SAT 95
== END 2017-03-28 21:45 | disposition home or self-care (01) ==
LOC: C.EDB 20:13 → C.EDC 21:45
DX: R10.33 Periumbilical pain (principal); I12.9 Hypertensive chronic kidney disease with stage 1 through stage 4 chronic kidney disease, or unspecified chronic kidney disease; N18.4 Chronic kidney disease, stage 4 (severe); Z87.440 Personal history of urinary (tract) infections

== ENCOUNTER 2017-07-07 05:02 | Emergency (ER) | payer OTHER ==
[~2017-07-07] VITALS: Ht 193 cm; Wt 104.6 kg
[2017-07-07 05:05] VITALS: Ht 193 cm; Wt 104.6 kg
--- NOTE | 2017-07-07 05:23 | EMERGENCY ROOM VISIT NOTE ---
History Report prepared by Ludwig: Zoraida Justin Under the Supervision of: Dr. Juanita Vides D.O. First contact with patient: 05:12 Chief Complaint: ABDOMINAL PAIN Stated Complaint: ABDOMINAL PAIN History of Present Illness The patient is an 81 year old male who presents to the Emergency Room with complaints of constant abdominal pain for two days. States he has been having this type of coming/going pain for many months. Pt points to periumbilical and lower abdomen centrally. He notes that the abdominal pain usually comes and goes with eating, though this pain has been constant for two days. He states the abdominal pain begins within 30 minutes of eating. He notes that he usually goes through a bottle of hot sauce every two weeks and he can no longer eat it because of the pain. He also notes that the pain is triggered by mustard and mayonnaise. He believes that brownies may have started this current pain. He states that he takes pain medication and it seems to help, though he is unsure of the name of the medication. He states that he has taken Pepto Bismol in the past, though he did not take it this time. He notes his pain is normally in the middle of his abdomen and is achy in nature. Denies radiation, no concurrent back pain. He also reports intermittent bloody urine for two days. He notes there is pain on the skin around his penis, though denies any pain with urination. He denies any history of kidney stones. He denies any fevers, chills , nausea, chest pain, vomiting, cough, or recent sickness. He has been here in the ED six months ago for similar symptoms. He denies any history of colonoscopy or endoscopy. He has not seen a GI doctor in the past. He denies any bloody stools, black stools, or changes in his stools. He regularly takes a baby aspirin. He denies any history of abdominal surgeries. He has a significant tobacco use, though denies any history of smoking or alcohol use. He denies any family history of ulcers. Pt with recent evaluations in the ED for abdominal pain on review of EMR. Pt had CT in March for abdominal pain. Source of History: patient Onset: two days Position: abdomen Quality: ache Timing: constant Modifying Factors (Worsening): eating Associated Symptoms: + urinary symptoms (blood urine), No fevers, No chills , No cough, No chest pain, No nausea, No vomiting Note: He denies any bloody stools or black stools. Review of Systems See HPI for pertinent positives & negatives. A total of 10 systems reviewed and were otherwise negative. 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 Social History Smoking Status: Never Smoker Alcohol Use: none Drug Use: none Marital Status: Housing Status: lives with family Occupation Status: retired Current/Historical Medications Scheduled Aspirin (Aspirin Ec), 81 MG PO DAILY Cephalexin (Keflex), 1 CAP PO BID Cyanocobalamin (Vitamin B-12), 2,500 MCG SL DAILY Multivitamin (Multivitamin), 1 TAB PO DAILY [Vitamin B12 Inject], 1 DOSE IM MONTHLY Allergies Coded Allergies: No Known Allergies (Unverified , 03/28/17) Physical Exam Vital Signs Date Time Temp Pulse Resp B/P (MAP) Pulse Ox O2 Delivery O2 Flow Rate FiO2 07/07/17 08:16 78 20 162/86 96 07/07/17 07:35 36.8 07/07/17 07:35 76 20 159/86 94 Room Air 07/07/17 05:05 36.5 110 20 174/90 93 Room Air Physical Exam GENERAL: alert, well appearing, well nourished, no distress, non-toxic EYE EXAM: normal conjunctiva, PERRL and EOM's grossly intact OROPHARYNX: no exudate, no erythema, lips, buccal mucosa, and tongue normal and mucous membranes are moist NECK: supple, no nuchal rigidity, no adenopathy, non-tender LUNGS: Clear to auscultation. Normal chest wall mechanics HEART: no murmurs, S1 normal and S2 normal ABDOMEN: abdomen soft, non-tender, normo-active bowel sounds, no masses, no rebound or guarding. Dull to percussion. No reproducible abdominal pain. Small nontender umbical hernia. BACK: Back is symmetrical on inspection and there is no deformity, no midline tenderness, no CVA tenderness. : Uncircumcised. Glans 1 cm superficial laceration at the 12 o'clock position , no blood at the urethral meatus, no scrotal edema, no penial discharge, no inguinal mass or hernia, no inguinal lymphadenopathy. SKIN: no rashes and no bruising UPPER EXTREMITIES: upper extremities are grossly normal. LOWER EXTREMITIES: No pitting edema. NEURO EXAM: Normal sensorium, cranial nerves II-XII grossly intact, normal speech, no gross weakness of arms, no gross weakness of legs. Medical Decision & Procedures ER Provider Diagnostic Interpretation: Radiology results have been interpreted and reviewed by me. X-ray: I interpreted the following studies. Chest: A two view study of the chest was reviewed and was negative for cardiomegaly, focal consolidation, effusion, pulmonary edema, or wide mediastinum. Unchanged compared to prior Abdominal XR: I interpreted the following studies. A two view study of the abdomen was reviewed and showed scattered air and stool. No small bowel obstruction. No free air. Laboratory Results 07/07/17 05:37 Red Blood Count 5.64, Mean Corpuscular Volume 92.9, Mean Corpuscular Hemoglobin 31.4, Mean Corpuscular Hemoglobin Concent 33.8, Mean Platelet Volume 10.3, Neutrophils (%) (Auto) 62.0, Lymphocytes (%) (Auto) 28.0, Monocytes (%) (Auto) 9.1, Eosinophils (%) (Auto) 0.4, Basophils (%) (Auto) 0.2, Neutrophils # (Auto) 7.01, Lymphocytes # (Auto) 3.15, Monocytes # (Auto) 1.02, Eosinophils # (Auto) 0.04, Basophils # (Auto) 0.02 07/07/17 05:37 Test 07/07/17 05:35 07/07/17 05:37 07/07/17 05:55 Bedside Lactic Acid Venous 1.57 mmol/L (0.90-1.70) White Blood Count 11.27 K/uL (4.8-10.8) Red Blood Count 5.64 M/uL (4.7-6.1) Hemoglobin 17.7 g/dL (14.0-18.0) Hematocrit 52.4 % (42-52) Mean Corpuscular Volume 92.9 fL (80-100) Mean Corpuscular Hemoglobin 31.4 pg (25-34) Mean Corpuscular Hemoglobin Concent 33.8 g/dl (32-36) Platelet Count 199 K/uL (130-400) Mean Platelet Volume 10.3 fL (7.4-10.4) Neutrophils (%) (Auto) 62.0 % Lymphocytes (%) (Auto) 28.0 % Monocytes (%) (Auto) 9.1 % Eosinophils (%) (Auto) 0.4 % Basophils (%) (Auto) 0.2 % Neutrophils # (Auto) 7.01 K/uL (1.4-6.5) Lymphocytes # (Auto) 3.15 K/uL (1.2-3.4) Monocytes # (Auto) 1.02 K/uL (0.11-0.59) Eosinophils # (Auto) 0.04 K/uL (0-0.5) Basophils # (Auto) 0.02 K/uL (0-0.2) RDW Standard Deviation 43.0 fL (36.4-46.3) RDW Coefficient of Variation 12.6 % (11.5-14.5) Immature Granulocyte % (Auto) 0.3 % Immature Granulocyte # (Auto) 0.03 K/uL (0.00-0.02) Prothrombin Time 11.2 SECONDS (9.0-12.0) Prothromb Time International Ratio 1.1 (0.9-1.1) Anion Gap 8.0 mmol/L (3-11) Est Creatinine Clear Calc Drug Dose 30.9 ml/min Estimated GFR () 27.4 Estimated GFR (Non- 23.6 BUN/Creatinine Ratio 8.1 (10-20) Calcium Level 8.8 mg/dl (8.5-10.1) Total Bilirubin 1.4 mg/dl (0.2-1) Aspartate Amino Transf (AST/SGOT) 31 U/L (15-37) Alanine Aminotransferase (ALT/SGPT) 44 U/L (12-78) Alkaline Phosphatase 97 U/L (45-117) Troponin I < 0.015 ng/ml (0-0.045) Total Protein 8.3 gm/dl (6.4-8.2) Albumin 3.7 gm/dl (3.4-5.0) Globulin 4.6 gm/dl (2.5-4.0) Albumin/Globulin Ratio 0.8 (0.9-2) Lipase 160 U/L (73-393) Urine Color ORANGE Urine Appearance TURBID (CLEAR) Urine pH 6.5 (4.5-7.5) Urine Specific [place] 1.020 (1.000-1.030) Urine Protein 3+ (NEG) Urine Glucose (UA) NEG (NEG) Urine Ketones TRACE (NEG) Urine Occult Blood 3+ (NEG) Urine Nitrite POS (NEG) Urine Bilirubin NEG (NEG) Urine Urobilinogen NEG (NEG) Urine Leukocyte Esterase LARGE (NEG) Urine WBC (Auto) >30 /hpf (0-5) Urine RBC (Auto) >30 /hpf (0-4) Urine Hyaline Casts (Auto) 1-5 /lpf (0-5) Urine Epithelial Cells (Auto) 10-20 /lpf (0-5) Urine Bacteria (Auto) 2+ (NEG) Urine Crystals AMORPHOUS SEDIMENT (NONE Urine Pathogenic Casts /lpf (0) Urine Mucus PRESENT (NONE PRSENT) Urine Yeast (Auto) (NONE PRSENT) Laboratory results per my review. Medications Administered Medications (Trade) Dose Ordered Sig/Clay Route Start Time Stop Time Status Last Admin Dose Admin Ceftriaxone Sodium (Rocephin Inj) 1 gm NOW STAT IV 07/07/17 07:07 07/07/17 07:08 DC 07/07/17 07:37 1 GM ECG Per My Interpretation Indication: abdominal pain Rate (beats per minute): 91 Rhythm: normal sinus Findings: RBBB, no acute ischemic change, left axis deviation, no ectopy Change: no significant change (when compared to 05/17/2016) ED Course 0513: The patient was evaluated in room B3B. A complete history and physical exam was performed. 0707: Ordered Rocephin 1 gm IV 0715: I reassessed the patient at this time. He is feeling better. He believes his stomach is actually associated with eating macaroni salad before bed. I offered for him to be further evaluated, though he declined. I discussed the results and treatment plan with the patient. I answered all pertaining questions that he had. He expressed understanding and verbalized agreement. The patient will be discharged home. Medical Decision Prior records/ancillary studies reviewed. Triage Nursing notes reviewed. The patient's history was concerning for abdominal pain. Differential diagnosis: Etiologies such as appendicitis, diverticulitis, PUD, biliary pathology, UTI, pancreatitis, obstruction, mesenteric ischemia, aortic pathology, infections, inflammatory bowel disease, renal colic, as well as others were entertained. On review of prior urine cultures due to patient's prior history of UTI, patient has grown out multiple organisms including Enterobacter, Pseudomonas, enterococcus, Klebsiella, and E. coli. In general the species have been resistant to fluoroquinolones. Isolated resistances were then seeing varying across the different cultures. Given patient's chronic kidney disease, patient given Rocephin IV and discharged on Keflex. Urine culture pending. Mild leukocytosis likely secondary to UTI. No evidence of bacteremia/sepsis. I do not suspect pyelonephritis or other obstructive uropathy. Gross hematuria more likely from small penile laceration and pt encouraged to trim fingernails to avoid any additional laceration. Area did not require any additional repair suturing. Pt's abdominal pain resolved here without further intervention and wasn't reproducible on exam. Pt offered admission for additional evaluation given intermittent nature of sx, uti and CKD. Pt refused stating he has "responsibilities at home". Discussed f/u with pcp regarding uti and recurrence of pain. Encouraged patient to consider GI f/u and possible egd/ colo. Pt declined. Discussed with him possible ddx of abdominal pain. Discussed prior urine culture results and sensitivities. Discussed that he would receive a phone call if antibiotics need to be changed. Discussed with him at length symptoms to watch and return for, close monitoring of his symptoms , taking of his antibiotics, adequate hydration. Encouraged him to follow-up with a supervisor beet end also. States he is never seen a supervisor beet end in his kidneys have "not been normal" for more than a decade. Patient states does not feel he needs any additional evaluation for this. Patient well-appearing at time of discharge, ambulate with a steady gait, had no pain, no vomiting, stable vital signs throughout. Patient anxious to go home. Medication Reconcilliation Current Medication List: was personally reviewed by me Blood Pressure Screening Patient's blood pressure: Elevated blood pressure Blood pressure disposition: Referred to PCP Impression Primary Impression: Abdominal pain Additional Impressions: UTI (urinary tract infection) Chronic kidney disease Penile laceration Scribe Attestation The scribe's documentation has been prepared under my direction and personally reviewed by me in its entirety. I confirm that the note above accurately reflects all work, treatment, procedures, and medical decision making performed by me. Departure Information Dispostion Home / Self-Care Prescriptions Cephalexin (KEFLEX) 500 Mg Cap 1 CAP PO BID for 7 Days, #14 CAP Prov: Juanita Vides, 07/07/17 Referrals No Doctor, Assigned (PCP) Forms HOME CARE DOCUMENTATION FORM, IMPORTANT VISIT INFORMATION Patient Instructions My [facility] Additional Instructions Please call and follow-up with your family doctor as a precaution. Please take the antibiotics as prescribed. Please make sure you are drinking plenty of water. Please be cautious regarding the food to eat given that you have identified certain foods give you abdominal pain. Please consider following up with a GI specialist also for possible endoscopy/colonoscopy. Please continue your regular medications as prescribed. If you have recurrent or worsening abdominal pain, develop back pain, are unable to urinate, develop fevers or chills, dizziness, nausea or vomiting, diarrhea, trouble breathing, chest pain, or you have any other new concerns, please return to the emergency room. Your urine was sent for a culture. This will take 48 hours to result. If your antibiotics need to be changed, you will receive a call from one of our nurses or the pharmacist. Problem Qualifiers Primary Impression: Abdominal pain Abdominal location: generalized Qualified Codes: R10.84 - Generalized abdominal pain Additional Impressions: UTI (urinary tract infection) Urinary tract infection type: acute cystitis Hematuria presence: with hematuria Qualified Codes: N30.01 - Acute cystitis with hematuria Chronic kidney disease Chronic kidney disease stage: unspecified stage Qualified Codes: N18.9 - Chronic kidney disease, unspecified Penile laceration Encounter type: initial encounter Qualified Codes: S31.21XA - Laceration without foreign body of penis, initial encounter
[2017-07-07 05:45] LABS: BASO % 0.2 %; BASO ABS # 0.02 K/uL (0-0.2); EOS % 0.4 %; EOS ABS # 0.04 K/uL (0-0.5); HEMATOCRIT 52.4 % (42-52); HEMOGLOBIN 17.7 g/dL (14.0-18.0); IG# 0.03 K/uL (0.00-0.02); LYMPH ABS # 3.15 K/uL (1.2-3.4); MEAN CELL VOLUME 92.9 fL (80-100); MEAN CORPUSCULAR HEMOGLOBIN 31.4 pg (25-34); MEAN CORPUSCULAR HGB CONC 33.8 g/dl (32-36); MEAN PLATELET VOLUME 10.3 fL (7.4-10.4); MONO % 9.1 %; MONO ABS # 1.02 K/uL (0.11-0.59); NEUT ABS # 7.01 K/uL (1.4-6.5); PLATELET COUNT 199 K/uL (130-400); RED CELL DISTRIBUTION WIDTH CV 12.6 % (11.5-14.5); WHITE BLOOD COUNT 11.27 K/uL (4.8-10.8)
[2017-07-07 05:56] LABS: INR 1.1 (0.9-1.1)
[2017-07-07 06:08] LABS: ALBUMIN 3.7 gm/dl (3.4-5.0); ALT/SGPT 44 U/L (12-78); AST/SGOT 31 U/L (15-37); BLOOD UREA NITROGEN 20 mg/dl (7-18); CALCIUM 8.8 mg/dl (8.5-10.1); CARBON DIOXIDE 24 mmol/L (21-32); CREATININE 2.45 mg/dl (0.60-1.40); GLUCOSE 124 mg/dl (70-99); LIPASE 160 U/L (73-393); POTASSIUM 3.9 mmol/L (3.5-5.1); SODIUM 139 mmol/L (136-145)
[2017-07-07 06:13] LABS: ALKALINE PHOSPHATASE 97 U/L (45-117); TOTAL PROTEIN 8.3 gm/dl (6.4-8.2)
[2017-07-07] MEDS ORDERED: ASPI81TA28 PO (06:20)
[2017-07-07] MEDS ORDERED: MULT-506 PO (06:21)
[2017-07-07] MEDS ORDERED: VTMB122500 SL (06:25)
[2017-07-07] MEDS ORDERED: VITAMIN B12 INJECT IM (06:27)
[2017-07-07] MEDS ORDERED: CEFTRIAXONE SOD INJ 1 GM ADDVIAL IV STA (07:07)
[2017-07-07] MEDS ORDERED: CEPH-571 PO (07:18)
[2017-07-07 07:35] VITALS: TEMP 36.8
[2017-07-07 08:16] VITALS: BP 162/86; PULSE 78; O2SAT 96
--- NOTE | 2017-07-07 08:38 | DIAGNOSTIC IMAGING REPORT ---
ABDOMEN 2VIEW W/PA CHEST RTN CLINICAL HISTORY: Abdominal pain COMPARISON STUDY: 05/17/2016 FINDINGS: The erect chest reveals no free air. There is no focal pulmonary consolidation. There is stable aortic tortuosity/ectasia. Right supine views the abdomen reveal gas within both large and small bowel loops. There is a left lower quadrant small bowel loop at the upper limits of normal in size. There are no transition zones to indicate bowel obstruction. IMPRESSION: No evidence of bowel obstruction. No evidence of free air. Electronically signed by: Rony Hopkins M.D. 07/07/2017 6:34 AM Dictated Date/Time: 07/07/2017 6:33 AM
== END 2017-07-07 08:17 | disposition home or self-care (01) ==
LOC: C.EDB 05:03
DX: R10.84 Generalized abdominal pain (principal); N30.01 Acute cystitis with hematuria; N18.9 Chronic kidney disease, unspecified; S31.21XA Laceration without foreign body of penis, initial encounter; X58.XXXA Exposure to other specified factors, initial encounter; Z79.82 Long term (current) use of aspirin; Z72.0 Tobacco use

== ENCOUNTER → 2017-08-22 | Outpatient (CLI) | payer OTHER ==
[~2017-08-22] MED LIST changes: +ASPI81TA28 PO; -CHOL100027 PO; -CIPR-255 PO; -CPR500 PO; -CYAN100T6 PO; -FRRS300 PO; -MRLP17 PO; +MULT-506 PO; -MULTTAB58 PO; -PRS5 PO; -SNK PO; +VITAMIN B12 INJECT IM; +VTMB122500 SL
== END | disposition home or self-care (01) ==
LOC: C.LABSPEC 17:15
PROVIDERS: ATTEND Urology
DX: N40.0 Benign prostatic hyperplasia without lower urinary tract symptoms (principal)

== ENCOUNTER → 2017-11-23 | Outpatient (CLI) | payer OTHER ==
[2017-11-23 14:36] LABS: HEMATOCRIT 50.1 % (42-52); HEMOGLOBIN 16.7 g/dL (14.0-18.0); MEAN CELL VOLUME 94.2 fL (80-100); MEAN CORPUSCULAR HEMOGLOBIN 31.4 pg (25-34); MEAN CORPUSCULAR HGB CONC 33.3 g/dl (32-36); MEAN PLATELET VOLUME 10.7 fL (7.4-10.4); PLATELET COUNT 193 K/uL (130-400); RED CELL DISTRIBUTION WIDTH CV 12.7 % (11.5-14.5); RED CELL DISTRIBUTION WIDTH SD 43.3 fL (36.4-46.3); WHITE BLOOD COUNT 7.55 K/uL (4.8-10.8)
[2017-11-23 14:56] LABS: ALBUMIN 3.8 gm/dl (3.4-5.0); BLOOD UREA NITROGEN 21 mg/dl (7-18); CALCIUM 9.2 mg/dl (8.5-10.1); CARBON DIOXIDE 27 mmol/L (21-32); CREATININE 2.38 mg/dl (0.60-1.40); GLUCOSE 101 mg/dl (70-99); PHOSPHORUS 2.9 mg/dl (2.5-4.9); POTASSIUM 4.1 mmol/L (3.5-5.1); SODIUM 140 mmol/L (136-145)
== END | disposition home or self-care (01) ==
LOC: C.LAB1850 12:51
PROVIDERS: ATTEND Internal Medicine Nephrology
DX: N18.4 Chronic kidney disease, stage 4 (severe) (principal); E55.9 Vitamin D deficiency, unspecified

== ENCOUNTER 2019-10-29 14:17 | Inpatient (IN) ==
[2019-10-29] MEDS ORDERED: SODIUM CHLORIDE 0.9% 500 ML IV ONE (16:08)
--- NOTE | 2019-10-29 16:20 | Emergency Department Note ---
History of Present Illness General Chief complaint: Urinary Symptoms Stated complaint: UTI Time Seen by Provider: 10/29/19 15:34 Source: patient Mode of arrival: ambulatory Limitations: no limitations History of Present Illness Provider complaint: UTI, blood with urination Onset (ago): day(s) Pain Consistency: + intermittent Maximum Pain Intensity: 5 Associated symptoms: + denies other symptoms Treatments prior to arrival: none This is an 83-year-old male who presents with concern for recurrent urinary tract infection as well as noticing blood with urination. Patient states he has had problems with recurrent UTIs ever since having his prostate removed several years ago by Dr. Warren. Patient states he thinks his last UTI was 2 months ago . Patient states he noticed some difficulty starting his stream and then blood in his urine today. Patient denies abdominal pain, back pain, nausea vomiting, fevers or chills. Patient states he does take a baby aspirin, however denies any other use of blood thinners. Patient stated he has not had much of an appetite recently, and has not eaten yet today. Patient denies any cough or cold symptoms. No known exposure to any coronavirus positive individuals. Pt seen during a time of high acuity and national emergency pandemic while wearing PPE. Home Medications Home Medications Medication Instructions Recorded Confirmed Type multivitamin 1 tab PO DAILY 06/03/19 10/29/19 History Allergies Allergy/AdvReac Type Severity Reaction Status Date / Time No Known Allergies Allergy Unverified 10/29/19 16:11 Past Med/Surg History Medical History Enlarged prostate Hx of deep venous thrombosis Prostatic hemorrhage (Inactive) Vitamin D deficiency (Inactive) Surgical History History of prostate surgery Family History Other Family history non-contributory Social History Smoking Status: Never smoker Preferred Language: Kinyarwanda Hearing Ability: Hard of Hearing marital status: Current Living Situation: Spouse current occupational status: retired Feels Safe at Home: Yes Review of Systems See HPI for pertinent positives & negatives. and A total of 10 systems reviewed and were otherwise negative Physical Exam Vital Signs Vital Signs - 24 hr 10/29/19 14:32 10/29/19 20:04 10/29/19 21:20 Temperature 37.4 C 36.2 C L Temperature Source Oral Temporal Artery Scan Pulse Rate 110 H 86 Pulse Rate [Apical] 86 Pulse Rhythm [Apical] Regular Respiratory Rate 18 18 12 Respiratory Effort / Characteristics Non-Labored Spontaneous Respiratory Depth Normal Respiratory Pattern Regular Blood Pressure 188/86 H 178/86 H Blood Pressure [Left Arm] 164/89 H Blood Pressure Mean 120 Blood Pressure Mean [Left Arm] 114 Blood Pressure Position [Left Arm] Semi-fowlers Pulse Oximetry 93 97 97 Oxygen Delivery Method Room Air Room Air Room Air Sepsis Recent Fever Within 48 Hours No Sepsis New/Unexplained Change in Mental Status No Sepsis Action Taken by Nursing No Action Required 10/29/19 21:30 10/29/19 21:40 10/29/19 21:50 Temperature 36.5 C Temperature Source Temporal Artery Scan Temporal Artery Scan Temporal Artery Scan Pulse Rate Pulse Rate [Apical] 83 83 79 Pulse Rhythm [Apical] Regular Regular Regular Respiratory Rate 13 15 19 Respiratory Effort / Characteristics Non-Labored Spontaneous Non-Labored Spontaneous Non-Labored Spontaneous Respiratory Depth Normal Normal Normal Respiratory Pattern Regular Regular Regular Blood Pressure Blood Pressure [Left Arm] 166/83 H 169/86 H 173/81 H Blood Pressure Mean Blood Pressure Mean [Left Arm] 110 113 111 Blood Pressure Position [Left Arm] Semi-fowlers Semi-fowlers Semi-fowlers Pulse Oximetry 96 95 96 Oxygen Delivery Method Room Air Room Air Room Air Sepsis Recent Fever Within 48 Hours Sepsis New/Unexplained Change in Mental Status Sepsis Action Taken by Nursing 10/29/19 22:00 Temperature Temperature Source Temporal Artery Scan Pulse Rate Pulse Rate [Apical] 79 Pulse Rhythm [Apical] Regular Respiratory Rate 16 Respiratory Effort / Characteristics Non-Labored Spontaneous Respiratory Depth Normal Respiratory Pattern Regular Blood Pressure Blood Pressure [Left Arm] 182/85 H Blood Pressure Mean Blood Pressure Mean [Left Arm] 117 Blood Pressure Position [Left Arm] Semi-fowlers Pulse Oximetry 96 Oxygen Delivery Method Room Air Sepsis Recent Fever Within 48 Hours Sepsis New/Unexplained Change in Mental Status Sepsis Action Taken by Nursing GENERAL: alert, well appearing, well nourished, no distress, non-toxic EYE EXAM: normal conjunctiva, PERRL and EOM's grossly intact OROPHARYNX: no exudate, no erythema, lips, buccal mucosa, and tongue normal and mucous membranes are moist NECK: supple, no nuchal rigidity, no adenopathy, non-tender LUNGS: Clear to auscultation. Normal chest wall mechanics, no w/r/r HEART: no murmurs, S1 normal and S2 normal ABDOMEN: abdomen soft, non-tender, normo-active bowel sounds, no masses, no rebound or guarding. BACK: Back is symmetrical on inspection and there is no deformity, no midline tenderness, no CVA tenderness. SKIN: no rashes and no bruising UPPER EXTREMITIES: upper extremities are grossly normal. FROM, nml pulses b/l. LOWER EXTREMITIES: No pitting edema. FROM, nml pulses b/l. NEURO EXAM: Normal sensorium, cranial nerves II-XII grossly intact, normal speech, no gross weakness of arms, no gross weakness of legs. Gross sensation intact. Course Course 1739: I assisted the nurse, Jalen, and the attempt at placing a Richard catheter at bedside due to acute urinary retention as the bladder scan showed nearly 1 L. Patient with apparent phimosis and we difficulty attempting to retract the foreskin. We were unable to visualize the urethral meatus, and patient had co ntinued bloody drainage coming from the glans out the foreskin. No other scrotal or inguinal abnormalities noted. No other rash or sores seen. Will contact urology for help in placing catheter. 1854: Dr. Cota now at bedside. 1939: Dr. Cota attempted to place bedside Richard catheter and was unsuccessful. We will plan on taking him to the operating room. Would like hospitalist to admit him for additional observation overnight. 2004: Case discussed with Dr. Thornton for additional management. Administered Medications Discontinued Medications Sodium Chloride (Nss) 500 mls @ 999 mls/hr IV .Q31M ONE Stop: 10/29/19 16:38 Last Infusion: 10/29/19 17:52 Dose: 0 mls/hr Documented by: [id number] Admin: 10/29/19 17:21 Dose: 999 mls/hr Documented by: [id number] Ceftriaxone Sodium (Rocephin) 1,000 mg in 50 mls @ 100 mls/hr IV NOW STA Stop: 10/29/19 20:23 Last Admin: 10/29/19 20:09 Dose: 100 mls/hr Documented by: [id number] Medical Decision Making Differential Diagnosis Differential: UTI, Urethritis, Pyelonephritis, STI, Herpetic, Vaginitis, Hyperglycemia, Yeast, PID, Hemorrhagic Cystitis, amongst other pathologies entertained. Medical Records Attestation: I reviewed the patient's medical records. Home Medications Current Medication List: was personally reviewed by me Laboratory Data Attestation: I reviewed the patient's lab results. Result diagrams: 10/29/19 17:15 10/29/19 17:15 Lab Results 10/29/19 10/29/19 10/29/19 Range/Units 17:00 17:15 17:15 WBC 14.10 H (4.8-10.8) K/uL RBC 4.95 (4.7-6.1) M/uL Hgb 12.6 L (14.0-18.0) g/dL Hct 41.0 L (42-52) % MCV 82.8 (80-100) fL MCH 25.5 (25-34) pg MCHC 30.7 L (32-36) g/dL RDW Std Deviation 49.2 H (36.4-46.3) fL RDW Coeff of Tono 16.4 H (11.5-14.5) % Plt Count 258 (130-400) K/uL MPV 10.4 (7.4-10.4) fL Immature Gran % (Auto) 0.2 % Neut % (Auto) 73.4 % Lymph % (Auto) 14.8 % [place] % (Auto) 11.3 % Eos % (Auto) 0.1 % Baso % (Auto) 0.2 % Neut # (Auto) 10.33 H (1.4-6.5) K/uL Lymph # (Auto) 2.09 (1.2-3.4) K/uL [place] # (Auto) 1.60 H (0.11-0.59) K/uL Eos # (Auto) 0.02 (0-0.5) K/uL Baso # (Auto) 0.03 (0-0.2) K/uL Immature Gran # (Auto) 0.03 H (0.00-0.02) K/uL Sodium 143 (136-145) mmol/L Potassium 4.1 (3.5-5.1) mmol/L Chloride 111 H (98-107) mmol/L Carbon Dioxide 26 (21-32) mmol/L Anion Gap 6.0 (3-11) BUN 20 H (7-18) mg/dl Creatinine 3.00 H (0.6-1.4) mg/dl Est Cr Clr Drug Dosing 23.1 ml/min Est GFR ( Amer) 21.1 Est GFR (Non-Af Amer) 18.2 BUN/Creatinine Ratio 6.7 L (10-20) Glucose 133 H (70-99) mg/dl Calcium 9.0 (8.5-10.1) mg/dl Total Bilirubin 0.9 (0.2-1) mg/dl AST 15 (15-37) U/L ALT 22 (12-78) U/L Alkaline Phosphatase 97 (45-117) U/L Total Protein 8.3 H (6.4-8.2) gm/dl Albumin 3.5 (3.4-5.0) gm/dl Globulin 4.8 H (2.5-4.0) gm/dl Albumin/Globulin Ratio 0.7 L (0.9-2) Urine Color Red Urine Appearance Cloudy A (Clear) Urine pH (4.5-7.5) Ur Specific [place] 1.020 (1.000-1.030) Urine Protein (Negative) Urine Glucose (UA) (Negative) Urine Ketones (Negative) Urine Blood (Negative) Urine Nitrite (Negative) Urine Bilirubin (Negative) Urine Urobilinogen (Negative) Ur Leukocyte Esterase (Negative) Urine RBC >30 H (0-4) /hpf Urine WBC >30 H (0-5) /hpf Ur Epithelial Cells 0-5 (0-5) /lpf Urine Bacteria 1+ H (Negative) Imaging Data Radiologist's Impression: CT SCAN OF THE ABDOMEN AND PELVIS WITHOUT CONTRAST CLINICAL HISTORY: hematuria, urinary retention COMPARISON STUDY: June 03, 2019 TECHNIQUE: CT scan of the abdomen and pelvis was performed from the lung bases to the proximal femurs. Images are reviewed in the axial, sagittal, and coronal planes. IV contrast was not administered for this examination. A dose lowering technique was utilized adhering to the principles of ALARA. CT DOSE: 1033.13 mGy.cm FINDINGS: Lower chest: The heart is normal in size and configuration, without pericardial effusion. The lung bases and pleural spaces are clear. Liver: The unenhanced liver is normal in size, contour, and attenuation. There is no intrahepatic biliary ductal dilatation. Gallbladder: Appears contracted Spleen: Normal in size and attenuation. Pancreas: Unremarkable. Adrenal glands: Unremarkable. Kidneys: There is bilateral hydronephrosis and bilateral renal cortical thinning or pronounced on the left. There are bilateral low-density exophytic renal masses likely representing cysts. There is bilateral ureteral dilatation down to the level of the bladder. No calculi are visualized. Bowel: There are no transition zones indicate bowel obstruction. There is no evidence of acute diverticulitis. There is extensive colonic diverticulosis. The appendix appears normal. Peritoneum: There is no intraperitoneal free air or abdominal ascites. Vasculature: The abdominal aorta is normal in course and caliber. Adenopathy: None. Pelvic viscera: The bladder is distended. There is gas within the bladder, likely iatrogenic. There is debris within the dependent portion the bladder, possibly representing hemorrhage. There is marked prostatomegaly. Skeletal structures: No destructive osseous lesions are seen. IMPRESSION: 1. Exam compromised by significant motion artifact 2. Interval development of moderate bilateral hydronephrosis and hydroureter 3. Evidence of bladder outlet obstruction with marked prostatomegaly and bladder distention. There is perivesical fat stranding 4. Gas within the bladder, possibly iatrogenic 5. Hyperdense debris within the dependent portion of the bladder, possibly representing hemorrhage 6. Extensive diverticulosis. No evidence of acute diverticulitis. 7. Normal appendix ACT 112: Negative or not required by law. Electronically signed by: Rony Hopkins M.D. 10/29/2019 8:18 PM Blood Pressure Blood Pressure Findings: Elevated blood pressure Blood Pressure Disposition: further management by hospitalist DENNIS Narrative Patient presenting with concern for possible UTI and gross hematuria which he states he has had previously. Patient had labs drawn and sent as a precaution due to gross hematuria, advanced age, and history of chronic kidney disease. There is mention of a prior TURP in 1 of his records although no op note was seen on review of EMR. Patient's labs appear stable including creatinine. Patient does not use any anticoagulation. We waited for some time as patient felt as though he could urinate, and after this did a bladder scan which showed nearly 1 L. Nurse initially had difficulty attempting to visualize the urethral meatus to pass a Richard catheter. I went to assist in between the 2 of us were still unsuccessful in visualizing the urethral meatus due to persistent blood coming from the urethra out the foreskin which could not be retracted due to phimosis. I contacted urology for assistance with this. Dr. Cota did come to bedside and was unsuccessful in attempting to pass a catheter also. Dr. Cota then decided to take the patient to the OR. Case was discussed with hospitalist for additional observation and management postop. Patient will go to CT first prior to going to the OR as this had not yet been performed prior to Dr. Cota arrival. Patient also given Rocephin 1 g IV. There is also mention on prior notes of a renal mass. Patient denies any evaluation of this. An order was placed for continuous cardiac monitoring. The monitor shows a rate of _80_ with _normal sinus_ rhythm. Impression & Plan Hematuria, gross, Enlarged prostate, Chronic kidney disease (CKD), Clot retention of urine, Phimosis, Acute retention of urine Discharge Plan Visit Data *Final* Discharge Date/Time: 10/29/19 20:04 Chief Complaint: Urinary Symptoms Stated Complaint: UTI ED Provider: Juanita Vides Discharge Problem: Hematuria, gross, Enlarged prostate, Chronic kidney disease (CKD), Clot retention of urine, Phimosis, Acute retention of urine Patient Disposition: Admitted As Inpatient Discharge Instructions Interventions: ED Discharge Assessment Last Done: 10/29/19 20:04 Discharge Problem: Chronic kidney disease (CKD) Qualifiers: Chronic kidney disease stage: unspecified stage Qualified Code(s): N18.9 - Chronic kidney disease, unspecified
[2019-10-29 17:29] LABS: Basophils # (auto) 0.03 K/uL (0-0.2); Basophils % (auto) 0.2 %; Eosinophils # (auto) 0.02 K/uL (0-0.5); Eosinophils % (auto) 0.1 %; Hemoglobin 12.6 g/dL (14.0-18.0); Immature Granulocytes # (auto) 0.03 K/uL (0.00-0.02); Immature Granulocytes % (auto) 0.2 %; Lymphocytes # (auto) 2.09 K/uL (1.2-3.4); Lymphocytes % (auto) 14.8 %; Mean Corpuscular Hemoglobin 25.5 pg (25-34); Mean Corpuscular Hgb Conc 30.7 g/dL (32-36); Mean Corpuscular Volume 82.8 fL (80-100); Mean Platelet Volume 10.4 fL (7.4-10.4); Monocytes % (auto) 11.3 %; Neutrophils # (auto) 10.33 K/uL (1.4-6.5); Neutrophils % (auto) 73.4 %; Platelet Count 258 K/uL (130-400); RDW Coefficient of Variation 16.4 % (11.5-14.5); RDW Standard Deviation 49.2 fL (36.4-46.3); Red Blood Count 4.95 M/uL (4.7-6.1)
[2019-10-29 17:43] LABS: Appearance Urine Cloudy (Clear); Color Urine Red
[2019-10-29 17:44] LABS: Sulfosalicylic Acid Urine Positive (Negative)
[2019-10-29 17:50] LABS: Albumin Level 3.5 gm/dl (3.4-5.0); BUN Creatinine Ratio 6.7 (10-20); Creatinine Clr Calc Pharmacy 23.1 ml/min; Est GFR (African American) 21.1; Est GFR (Non-African American) 18.2; Potassium 4.1 mmol/L (3.5-5.1)
[2019-10-29 17:53] LABS: Albumin Globulin Ratio 0.7 (0.9-2); Bilirubin,Total 0.9 mg/dl (0.2-1); Globulin 4.8 gm/dl (2.5-4.0); Total Protein 8.3 gm/dl (6.4-8.2)
[2019-10-29 17:56] LABS: RBC Urine >30 /hpf (0-4)
[2019-10-29 18:00] LABS: WBC Urine >30 /hpf (0-5)
[2019-10-29 18:03] LABS: Bacteria Urine 1+ (Negative)
[2019-10-29 18:04] LABS: Epithelial Cell Urine 0-5 /lpf (0-5)
[2019-10-29] MEDS ORDERED: cefTRIAXone SODIUM 1,000 MG/50 ML BAG IV STA (19:54)
--- NOTE | 2019-10-29 19:58 | Urology Consultation ---
Date of Consultation October 29, 2019 Assessment & Plan (1) Renal mass, left: (2) Enlarged prostate: (3) Hematuria, gross: Patient has severe gross hematuria with large amount of clots passing. Unable to pass catheter into bladder. Multiple attempts were made with me different catheters utilizing different sizes. Patient has a severe phimosis which hindered access at first however after finding the meatus and dilating meatus the catheters were able to be advanced to the region of the prostatic urethra. On palpation this did bypassed the bulbar urethra. Patient on previous imaging approximately 3 months ago shows extremely large prostate with large dilated bladder. Concerned that catheter is getting caught up in the prostatic urethra possibly folding back on itself due to a high bladder neck. With each passage of the catheter a large amount of dark red clotted material was passed that appeared to be old blood. Concerned that patient likely has a bladder full of clotted blood and an unknown source of gross hematuria. Patient was given a IV dose of antibiotics. With patient's inability to void and likely large clot retention recommended proceeding with urgent procedure to relieve obstruction and to drain clot material. Risks and benefits discussed at length for procedure. These include bleeding, infection, injury to surrounding tissues or organs, and risks associated with anesthesia. Patient states understanding and agrees to proceed. Will sign consent and schedule. We will set patient up for urgent cystoscopy with clot evacuation and possible dilation with catheter placement (4) Clot retention of urine: (5) Phimosis: (6) Other urethral stricture, male, meatal: History of Present Illness History of Present Illness Consult for urinary issues with hematuria. Patient has complex urologic history with conflicting reports. Patient states he had his prostate cleared and that this was done in 2014. All the records do not confirm this however he does appear to at one point have a past surgical history of a TURP. Patient had been worked up multiple times through multiple urologist. Appears to have had significant issues with obstruction and bladder stones. Developed severe sudden bothersome lower urinary tract symptoms with an inability to empty and significant amount of large clot passage. Nursing was unable to find the meatus due to his severe phimosis. Urology was consulted and I attempted catheter placement. Was able to access the meatus was able to dilate the meatus and was able to advance the catheter past the bulbar urethra however at this point the catheter was unable to pass further. Multiple attempts with various different size catheters as well as coud and three-way catheters were attempted. With each passage a large amount of old dark red blood clot also passed. Patient has mild to moderate discomfort in pelvis and groin going to back and side in waves. Is dealing with acute illness. Patient states this is been an ongoing issue and has been doing it for that for many years. This has drastically worsened over the last few days. Records are giving conflicting Reports having counts of his issues and patient is giving minimal information during history. Has had some minor urinary issues in the past. Patient may or may not have had surgical intervention and has seen multiple urologist. No severe nausea or vomiting. Currently no fevers. No significant family history of malignancy. Allergies Allergy/AdvReac Type Severity Reaction Status Date / Time No Known Allergies Allergy Unverified 10/29/19 16:11 Home Medications Home Medications Medication Instructions Recorded Confirmed Type multivitamin 1 tab PO DAILY 06/03/19 10/29/19 History Patient History Medical History Enlarged prostate Hx of deep venous thrombosis Prostatic hemorrhage (Inactive) Vitamin D deficiency (Inactive) Surgical History History of prostate surgery Family History Other Family history non-contributory Social History Smoking Status: Never smoker Preferred Language: Albanian Hearing Ability: Hard of Hearing marital status: Current Living Situation: Spouse current occupational status: retired Feels Safe at Home: Yes Review of Systems Review of Systems: All systems reviewed & are unremarkable except as noted in HPI & below Physical Exam Physical Exam: General: Alert in no acute distress. Advanced age. Chronic Medical issues. HEENT: Normocephalic. Inspection normal. Cranial Nerves 2-12 Grossly intact with some hearing issues. Normal inspection of face. Normal inspection of neck. Psychologic: Normal affect. Baseline issues with memory. Respiratory: Nonlabored. No use of accessory muscles. No tachypnea or dyspnea. Cardiovascular: No tachycardia Skin: [place] and Dry. No rashes or visible lesions. Extremities/Lymphatics: Minor Mobility issues. Slow Gait. Abdomen: Significantly distended with suprapubic tenderness and ascites. No rebound or guarding. : Severe phimosis. Blood visualized coming from meatus is dark red and clotted appears to be old passing blood. Significant meatal narrowing which was dilated for attempted catheter placement. Catheter was unable to advance through the prostatic urethra With catheter palpable curving past the bulbar urethra. Results & Data Vital Signs (Past 12 Hours) Vital Signs Temp Pulse Resp BP Pulse Ox 10/29/19 14:32 37.4 C 110 H 18 188/86 H 93 PG Care Time/CCT Total # of Minutes Spent Total Time Spent with Patient: Total time spent is greater than 50% in coordination of care (as documented) at patient's floor/unit and/or counseling patient: Coding Level of Care Code 22301 Inpt Consult Level 5 Diagnoses Renal mass, left N28.89 Enlarged prostate N40.0 Hematuria, gross R31.0 Clot retention of urine R33.8 Phimosis N47.1 Other urethral stricture, male, meatal N35.811
[2019-10-29] MEDS ORDERED: fentaNYL citrate 100 MCG/2 ML VIAL ONE (19:59)
[2019-10-29] MEDS ORDERED: PROPOFOL IV EMULSION 10 MG/ML 20 ML VIAL IV ONE (19:59)
[2019-10-29] MEDS ORDERED: MIDAZOLAM HCL 1 MG/ML 2ML VIAL ONE (19:59)
--- NOTE | 2019-10-29 20:20 | CT Scan Report ---
CT SCAN OF THE ABDOMEN AND PELVIS WITHOUT CONTRAST CLINICAL HISTORY: hematuria, urinary retention COMPARISON STUDY: June 03, 2019 TECHNIQUE: CT scan of the abdomen and pelvis was performed from the lung bases to the proximal femurs . Images are reviewed in the axial, sagittal, and coronal planes. IV contrast was not administered fo r this examination. A dose lowering technique was utilized adhering to the principles of ALARA. CT DOSE: 1033.13 mGy.cm FINDINGS: Lower chest: The heart is normal in size and configuration, without pericardial effusion. The lung ba ses and pleural spaces are clear. Liver: The unenhanced liver is normal in size, contour, and attenuation. There is no intrahepatic yifan iary ductal dilatation. Gallbladder: Appears contracted Spleen: Normal in size and attenuation. Pancreas: Unremarkable. Adrenal glands: Unremarkable. Kidneys: There is bilateral hydronephrosis and bilateral renal cortical thinning or pronounced on the left. There are bilateral low-density exophytic renal masses likely representing cysts. There is yifan ateral ureteral dilatation down to the level of the bladder. No calculi are visualized. Bowel: There are no transition zones indicate bowel obstruction. There is no evidence of acute divert iculitis. There is extensive colonic diverticulosis. The appendix appears normal. Peritoneum: There is no intraperitoneal free air or abdominal ascites. Vasculature: The abdominal aorta is normal in course and caliber. Adenopathy: None. Pelvic viscera: The bladder is distended. There is gas within the bladder, likely iatrogenic. There i s debris within the dependent portion the bladder, possibly representing hemorrhage. There is marked prostatomegaly. Skeletal structures: No destructive osseous lesions are seen. IMPRESSION: 1. Exam compromised by significant motion artifact 2. Interval development of moderate bilateral hydronephrosis and hydroureter 3. Evidence of bladder outlet obstruction with marked prostatomegaly and bladder distention. There is perivesical fat stranding 4. Gas within the bladder, possibly iatrogenic 5. Hyperdense debris within the dependent portion of the bladder, possibly representing hemorrhage 6. Extensive diverticulosis. No evidence of acute diverticulitis. 7. Normal appendix ACT 112: Negative or not required by law. Electronically signed by: Rony Hopkins M.D. 10/29/2019 8:18 PM
[2019-10-29] MEDS ORDERED: HYDROmorphone INJ 2 MG/ML SYR/VIAL IV PRN (20:26)
[2019-10-29] MEDS ORDERED: ePHEDrine sulfate 50 MG/ML AMP IV PRN (20:26)
[2019-10-29] MEDS ORDERED: ATROPINE SULFATE 0.1 MG/ML 10ML SYR IV PRN (20:26)
[2019-10-29] MEDS ORDERED: fentaNYL citrate 100 MCG/2 ML VIAL IV PRN (20:26)
--- NOTE | 2019-10-29 20:29 | Anesthesiology Consultation ---
Date of Service October 29, 2019 Assessment & Plan ASA [id number] Proposed Anesthesia Anesthesia Type: MAC Risk / Benefits Reviewed With: PT / POA / Parent / Guardian, Accepts Plan and Informed Consent Obtained History Surgery Operation Date: 10/29/19 19:45 Proposed Procedures p Cystoscopy, Dilation, Clot Evacuation - Sergo Cota DO Height/Weight Height: 6 ft 5 in Weight: 104.1 kg Allergies Allergy/AdvReac Type Severity Reaction Status Date / Time No Known Allergies Allergy Unverified 10/29/19 16:11 Medications Home Medications Medication Instructions Recorded Confirmed Last Taken multivitamin 1 tab PO DAILY 06/03/19 10/29/19 Unknown Past Medical History Medical History Enlarged prostate Hx of deep venous thrombosis Prostatic hemorrhage (Inactive) Vitamin D deficiency (Inactive) Exercise / Class Metabolic Activity II 4-5 Yardwork/Stairs/Walk up hill Past Family History Family History Other Family history non-contributory Past Surgical History Surgical History History of prostate surgery Past Anesthesia History No Hx of Anesthesia Complications and No Family Hx of Anesthesia Complications History of PONV No Hx of PONV and No Hx of Motion Sickness Social History Smoking Status: Never smoker tobacco type: smokeless tobacco Review of Systems denies fever/cough/ colds/ chest pain/ SOB/ CHELITA Constitutional: no fever and no chills Respiratory: no cough and no dyspnea denies CHELITA Cardiovascular: no chest pain and no dyspnea on exertion Physical Exam Vital Signs Last Vital Signs Temp 37.4 C 10/29/19 14:32 Pulse 86 10/29/19 20:04 Resp 18 10/29/19 20:04 BP 178/86 H 10/29/19 20:04 Pulse Ox 97 10/29/19 20:04 ENMT Mouth: no TMJ abnormality and no dentition abnormality Thyromental Distance: > or= 3.5 Finger Breadths Mallampati Class: II Neck neck extension not limited Respiratory normal respiratory effort; no respiratory distress Auscultation: lungs clear to auscultation bilaterally Cardiovascular Rate/Rhythm: regular rate and regular rhythm Neurologic moves all extremities Psychiatric Orientation: alert and oriented x 3 Testing Laboratory Results 10/29/19 17:15 10/29/19 17:15 Urine Color Red 10/29/19 17:00 Urine Appearance Cloudy (Clear) A 10/29/19 17:00 Urine pH (4.5-7.5) 10/29/19 17:00 Ur Specific [place] 1.020 (1.000-1.030) 10/29/19 17:00 Urine Protein (Negative) 10/29/19 17:00 Urine Glucose (UA) (Negative) 10/29/19 17:00 Urine Ketones (Negative) 10/29/19 17:00 Urine Nitrite (Negative) 10/29/19 17:00 Ur Leukocyte Esterase (Negative) 10/29/19 17:00 Urine RBC >30 /hpf (0-4) H 10/29/19 17:00 Urine WBC >30 /hpf (0-5) H 10/29/19 17:00 Ur Epithelial Cells 0-5 /lpf (0-5) 10/29/19 17:00
--- NOTE | 2019-10-29 20:56 | History & Physical Report ---
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 Gross hematuria -Abdomen pelvis CT: Interval development of moderate bilateral hydronephrosis and hydroureter. Evidence of bladder outlet obstruction with marked prostatomegaly and bladder distention. There is perivesical fat stranding. Gas within the bladder, possibly iatrogenic. Hyperdense debris within the dependent portion of the bladder, possibly representing hemorrhage -Status post cystoscopy/urethral dilation/clot evacuation/irrigation -Holding home aspirin -Three-way catheter in place draining light pink. Patient to be monitored on continuous bladder irrigation -Appreciate urology assistanceDr. Cota CKD IV -Cr 3.0 on admission. Baseline ~2.5 -IVF NSS at 80 . EF from ECHO 2017 70% -Daily BMP FEN/GI: NSS at 100. Regular Diet DVT prophylaxis: Chemoprophylaxis deferred. 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 Of note patient is a poor historian with multiple conflicting reports and reviewing past notes and per patient's recollection. Patient follows with Dr. Warren of urology and Dr. Zhang of nephrology. Patient's last UTI 2 months ago. Today patient noted some urinary hesitancy along with hematuria in the form of large clots. Patient notes past history of obstruction. Onset was a few days ago. Patient takes a daily baby aspirin but does not take any other blood thinners. Patient otherwise denied any fevers, chills, nausea, vomiting, back/flank pain, abdominal pain, known sick contacts or recent travel anywhere. Dr. Cota of urology saw the patient in the ER for assistance and catheter placement. Nursing was unable to find urethral meatus secondary to patient's severe phimosis. Urology was able to access the meatus however was unable to pass past the bulbar urethra even with multiple different catheter sizes. Each pass of the catheter yielded large amounts of clots that appear to be old blood. Given patient's inability to void and likely presumed large clot retention patient was taken for emergent procedure to relieve obstruction and drain clot material. Pertinent labs: WBC 14.10, hemoglobin 12.6, creatinine 3.0, BUN 20, glucose 133, otherwise unremarkable UAlargely unable to quantitate due to urine color interference. Greater than 30 RBC, greater than 30 WBC, 1+ bacteria Abdomen pelvis CT: Interval development of moderate bilateral hydronephrosis and hydroureter. Evidence of bladder outlet obstruction with marked prostatomegaly and bladder distention. There is perivesical fat stranding. Gas within the bladder, possibly iatrogenic. Hyperdense debris within the dependent portion of the bladder, possibly representing hemorrhage ER course: IV atropine 0.5 mg, IV Rocephin 1 g, IV ephedrine 5 mg, IV fentanyl 50 mcg / 100 mcg, IV Dilaudid 0.5 mg, NSS 0.5L Patient seen and evaluated in MICU after procedure. Patient tolerated procedure well and with no other acute concerns or complaints. Family history: No significant history of malignancy Surgical history: Status post TURP 2016 Social history: Admits to chewing tobacco however denies any smoking or alcohol use or illicit drug use Allergies Allergy/AdvReac Type Severity Reaction Status Date / Time No Known Allergies Allergy Unverified 10/29/19 16:11 Home Medications Home Medications Medication Instructions Recorded Confirmed Type multivitamin 1 tab PO DAILY 06/03/19 10/29/19 History Past Med/Surg History Medical History Enlarged prostate Hx of deep venous thrombosis Prostatic hemorrhage (Inactive) Vitamin D deficiency (Inactive) Surgical History History of prostate surgery Family History Other Family history non-contributory Social History Smoking Status: Never smoker Second Hand Exposure: No; Do You Dip or Chew Tobacco: Yes; Tobacco Cessation Education Requested by Patient: No Hx Alcohol Use: No Hx Substance Use: No Preferred Language: Latvian Communication Ability: Effective Hearing Ability: Hard of Hearing Attendant Child Activity Required: No Beliefs That Will Affect Care: None marital status: Current Living Situation: Spouse current occupational status: retired Other Information That Helps Us Care for You: No Feels Safe at Home: Yes Safety Concerns: Feels Safe At This Time Review of Systems Review of Systems: All systems reviewed & are unremarkable except as noted in HPI & below Physical Exam Constitutional: WD/WN, vitals as above no acute distress Eyes: PERRL, conjunctivae normal, anicteric sclerae ENMT: external ear and nose normal, oropharynx normal Respiratory: normal respiratory effort, lungs clear to auscultation Cardiovascular: RRR, no murmur, no edema Gastrointestinal (Abdomen): Inspection/Auscultation: abdomen not distended Percussion/Palpation: + abdomen tender (suprapubic) and abdomen soft; no guarding Skin: no rashes, warm and dry Psychiatric: A+Ox3, euthymic affect Results & Data Results & Data ([facility]) Vital Signs (Past 12 Hours) Vital Signs Temp Pulse Resp BP Pulse Ox 10/29/19 20:04 86 18 178/86 H 97 10/29/19 14:32 37.4 C 110 H 18 188/86 H 93 Laboratory Results Laboratory Results - last 24 hr 10/29/19 10/29/19 10/29/19 17:00 17:15 17:15 WBC 14.10 H RBC 4.95 Hgb 12.6 L Hct 41.0 L MCV 82.8 MCH 25.5 MCHC 30.7 L RDW Std Deviation 49.2 H RDW Coeff of Tono 16.4 H Plt Count 258 MPV 10.4 Immature Gran % (Auto) 0.2 Neut % (Auto) 73.4 Lymph % (Auto) 14.8 Smith % (Auto) 11.3 Eos % (Auto) 0.1 Baso % (Auto) 0.2 Neut # (Auto) 10.33 H Lymph # (Auto) 2.09 Smith # (Auto) 1.60 H Eos # (Auto) 0.02 Baso # (Auto) 0.03 Immature Gran # (Auto) 0.03 H Sodium 143 Potassium 4.1 Chloride 111 H Carbon Dioxide 26 Anion Gap 6.0 BUN 20 H Creatinine 3.00 H Est Cr Clr Drug Dosing 23.1 Est GFR ( Amer) 21.1 Est GFR (Non-Af Amer) 18.2 BUN/Creatinine Ratio 6.7 L Glucose 133 H Calcium 9.0 Total Bilirubin 0.9 AST 15 ALT 22 Alkaline Phosphatase 97 Total Protein 8.3 H Albumin 3.5 Globulin 4.8 H Albumin/Globulin Ratio 0.7 L Urine Color Red Urine Appearance Cloudy A Urine pH Ur Specific [place] 1.020 Urine Protein Urine Glucose (UA) Urine Ketones Urine Blood Urine Nitrite Urine Bilirubin Urine Urobilinogen Ur Leukocyte Esterase Urine RBC >30 H Urine WBC >30 H Ur Epithelial Cells 0-5 Urine Bacteria 1+ H Medications Administered Current Inpatient Medications Atropine Sulfate (Atropine Sulfate) 0.5 mg IV Q1M PRN PRN Reason: PACU Use-HR<40 &/or Bradycardi Stop: 10/30/19 04:26 Ephedrine Sulfate (Ephedrine Sulfate) 5 mg IV Q5M PRN PRN Reason: PACU Use Only-SBP<90 mmHg Stop: 10/30/19 04:26 Fentanyl Citrate (Fentanyl Citrate) 50 mcg IV Q5M PRN PRN Reason: PACU Use Only-Pain Stop: 10/30/19 04:26 Hydromorphone HCl (Dilaudid) 0.5 mg IV Q5M PRN PRN Reason: PACU Use Only-Pain Stop: 10/30/19 04:27 Supervising Physician Co-Signing Physician Notes Patient seen and examined, chart reviewed, case discussed with Dr. Srinivasan and I agree with his assessment and plan as documented above. Briefly, patient is an 83yo C male s/p TURP presenting with acute urinary retention and gross hematuria with clots s/p Richard placement in OR On exam he is afebrile, HD stable, NAD HEENT - NC/AT, MMM, Neck supple Heart - +S1/S2, regular, no m/r/g LUngs - CTA Abd - +BS, soft, NT/ND, Richard in place with +dark pink urine in bag Ext - No edema Labs and images reviewed Assessment/Plan: Admitted to medical floor with telemetry. -Continue CBI -Trend CBC -Monitor UOP -Appreciate Urology assistance Resident Activity Tracking Resident Involvement: Resident Care Provided Care Provided: Adult [facility] Medicine
--- NOTE | 2019-10-29 21:18 | Operative Report ---
PG Post Operative Report Pre & Post Diagnosis Operation Date: 10/29/19 19:45 Pre-Op Diagnosis: Gross Hematuria Post-Op Diagnosis: Gross Hematuria I identified the patient and participated in the time-out.: Yes Procedure Operation Date: 10/29/19 19:45 Actual Procedures p Cystoscopy, urethral Dilation, Clot Evacuation, difficult catheter placement, and irrigation - Sergo Cota DO Surgeon Sergo Cota, II, DO Application Chemist None Estimated Blood Loss 10 Findings Consistent with Post-Op Diagnosis Severe prostate enlargement with multiple bleeding varicosity and severely trabeculated bladder. Specimens None Drains [address] catheter on CBI Anesthesia Type MAC Complications none Disposition Disposition: Recovery Room Indications Patient with severe clot retention and obstruction and failed bedside catheter placement. Risks and benefits discussed at length. Description of Procedure Patient was consented and brought back to the operating room. Patient was placed under anesthesia in the supine position and moved to the dorsal lithotomy position. Patient was prepped and draped in the regular sterile fashion. A time out was completed. A 30degree Cystoscope was placed into the bladder and multiple strictured areas were dilated and bypassed. Mild bleeding from the meatus which was dilated during the bedside placement. On entering the bladder an extremely large amount of clot and dark purple urine was found and drained. The entire bladder was examined and patient found to have extremely large prostate with large median lobe, multiple bleeding varicosity, and severe trabeculation. The UO's were poorly identified due to the significant irritation at the base of the bladder. No obvious masses, though visualization was difficult. . After evacuation, A wire was then placed. With the wire in place, the scope was slowly removed and the wire left. A [address] catheter was placed over the wire and the bladder was emptied. This was then irrigated to light pink. The patient was cleaned, aroused from anesthesia, and transferred to the pacu in stable condition having tolerated the procedure well with no complications. I was present and participated in all aspects of the procedure. The patient will be monitored in the PACU until transferred. Patient will be monitored on Continuous bladder irrigation and monitored with the hospitalist team. I attest to the content of the Intraoperative Record and any orders documented therein. Any exceptions are noted below.
--- NOTE | 2019-10-29 21:33 | Anesthesiology Progress Note ---
Date of Service October 29, 2019 Anesthesia Post Procedure Vital Signs Vital Signs: Temp Pulse Resp BP Pulse Ox 10/29/19 20:04 86 18 178/86 H 97 10/29/19 14:32 37.4 C 110 H 18 188/86 H 93 Transfer of Care Handoff Completed per policy Notes Mental Status: alert / awake / arousable and participated in evaluation Patient Amnestic to Procedure: Yes Nausea / Vomiting: adequately controlled Pain: adequately controlled Airway Patency, RR, SpO2: stable & adequate BP & HR: stable & adequate Hydration State: stable & adequate Anesthetic Complications: no major complications apparent and Pt Satisfied with anesthetic care
[2019-10-29] MEDS ORDERED: ONDANSETRON INJ 2 MG/ML 2 ML VIAL IV PRN (23:10)
[2019-10-29] MEDS ORDERED: ALUMINUM/MAGNESIUM SUSP 30 ML UDC PO PRN (23:10)
[2019-10-29] MEDS ORDERED: ACETAMINOPHEN 325 MG TAB PO PRN (23:10)
[2019-10-29] MEDS: SODIUM CHLORIDE 0.9% 1000ML 1,000 ML IV SCH (23:41)
--- NOTE | 2019-10-30 06:25 | Billing Data ---
Date of Service October 29, 2019 Coding Level of Care Code 06278 Initial Inpt Care Lvl 2
[2019-10-30 07:10] LABS: Basophils # (auto) 0.02 K/uL (0-0.2); Basophils % (auto) 0.2 %; Eosinophils # (auto) 0.03 K/uL (0-0.5); Eosinophils % (auto) 0.3 %; Hematocrit (blood only) 33.5 % (42-52); Hemoglobin 10.2 g/dL (14.0-18.0); Immature Granulocytes # (auto) 0.02 K/uL (0.00-0.02); Immature Granulocytes % (auto) 0.2 %; Lymphocytes # (auto) 1.95 K/uL (1.2-3.4); Mean Corpuscular Hemoglobin 25.1 pg (25-34); Mean Corpuscular Hgb Conc 30.4 g/dL (32-36); Mean Corpuscular Volume 82.3 fL (80-100); Mean Platelet Volume 10.6 fL (7.4-10.4); Monocytes # (auto) 1.55 K/uL (0.11-0.59); Monocytes % (auto) 14.3 %; Neutrophils # (auto) 7.25 K/uL (1.4-6.5); Platelet Count 200 K/uL (130-400); RDW Coefficient of Variation 16.6 % (11.5-14.5); Red Blood Count 4.07 M/uL (4.7-6.1); White Blood Count 10.82 K/uL (4.8-10.8)
[2019-10-30 07:43] LABS: BUN Creatinine Ratio 8.5 (10-20); Calcium 8.3 mg/dl (8.5-10.1); Creatinine Clr Calc Pharmacy 27.2 ml/min; Est GFR (African American) 25.7; Est GFR (Non-African American) 22.2; Potassium 3.9 mmol/L (3.5-5.1)
--- NOTE | 2019-10-30 11:33 | Urology Progress Note ---
Date of Service October 30, 2019 Assessment & Plan (1) Hematuria, gross: Gross hematuria, status post cystoscopy, clot EVAC, catheter placement last night Nursing called us with trouble secondary to CBI this morning Upon evaluation is CBI was clamped and he had significant blood within the cat heter tubing Performed manual irrigation I was able to evacuate approximately 50 cc of old clot at which time we were able to resume the CBI without issue. He tolerated the procedure very well. Plan: Continue CBI for at least 24 more hours Continue to trend labs We will continue to follow Subjective Somewhat grumpy Not really complaining about pain Trouble with his CBI this morning Otherwise appears to be resting comfortably Review of Systems Review of Systems: All systems reviewed & are unremarkable except as noted in HPI & below Physical Exam Physical Exam: CBI clamped, hematuria throughout the tubing of his catheter Constitutional: well developed and well nourished Neck: neck nontender Respiratory: normal respiratory effort; no respiratory distress and does not use accessory muscles Cardiovascular: Rate/Rhythm: regular rate Vessels: radial pulses present Extremities: no edema Gastrointestinal (Abdomen): Inspection/Auscultation: abdomen normal to inspection Percussion/Palpation: abdomen soft; abdomen nontender and no guarding Musculoskeletal: Head/Neck/Chest: normocephalic and head atraumatic Extremities: extremities normal to inspection Skin: no rashes and no lesions Trauma: no evidence of skin trauma Neurologic: awake; not obtunded Speech / Cognition: normal speech Motor/Sensory: no tremor Psychiatric: Orientation: alert and oriented x 3 Genitourinary: no CVA tenderness Lymphatic: no lymphadenopathy Results & Data Vital Signs (Past 12 Hours) Vital Signs Temp Pulse Pulse Resp BP Pulse Ox 10/30/19 08:37 37.4 C 82 20 146/77 H 94 10/30/19 03:11 37.8 C H 82 18 139/65 95 10/30/19 01:37 37.4 C 84 18 184/84 H 96 10/30/19 00:50 83 10/30/19 00:35 37.4 C 95 H 16 172/95 H 95 10/29/19 23:37 37.0 C 85 16 177/83 H 97 PG Care Time/CCT Total # of Minutes Spent Total Time Spent with Patient: Total time spent is greater than 50% in coordination of care (as documented) at patient's floor/unit and/or counseling patient: Coding Level of Care Code 98005 Subseq Hosp Care Lvl 3 Diagnoses Hematuria, gross R31.0
[2019-10-30] MEDS: SODIUM CHLORIDE 0.9% 1000ML 1,000 ML IV SCH ×2 (12:05→23:49)
[2019-10-30] MEDS: AMLODIPINE BESYLATE 5 MG TAB PO SCH (20:37)
--- NOTE | 2019-10-30 22:55 | Hospitalist Progress Note ---
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 Gross hematuria -Abdomen pelvis CT: Interval development of moderate bilateral hydronephrosis and hydroureter. Evidence of bladder outlet obstruction with marked prostatomegaly and bladder distention. There is perivesical fat stranding. Gas within the bladder, possibly iatrogenic. Hyperdense debris within the dependent portion of the bladder, possibly representing hemorrhage -Status post cystoscopy/urethral dilation/clot evacuation/irrigation -Holding home aspirin -Three-way catheter in place draining more clear slightly pink urine. Patient to be monitored on continuous bladder irrigation -Appreciate urology assistanceDr. Cota CKD IV -Cr 3.0 on admission. Baseline ~2.5 Improved to 2.55 -IVF NSS at 80 . EF from ECHO 2017 70% -Daily BMP FEN/GI: NSS at 100. Regular Diet DVT prophylaxis: Chemoprophylaxis deferred. SCDs Full code Dispo: Med Tele Admission and Anticipated Discharge Date Admission Date: October 29, 2019 Subjective 83 yo male reports no new symptoms. Pain has improved. He has had decreased hematuria. Review of Systems Review of Systems: All systems reviewed & are unremarkable except as noted in HPI & below Physical Exam Physical Exam: Constitutional: WD/WN, vitals as above no acute distress Eyes: PERRL, conjunctivae normal, anicteric sclerae ENMT: external ear and nose normal, oropharynx normal Respiratory: normal respiratory effort, lungs clear to auscultation Cardiovascular: RRR, no murmur, no edema Gastrointestinal (Abdomen): Inspection/Auscultation: abdomen not distended Percussion/Palpation: no longer tender and abdomen soft; no guarding Skin: no rashes, warm and dry Psychiatric: A+Ox3, euthymic affect Results & Data Results & Data ([facility]) Vital Signs (Past 12 Hours) Vital Signs Temp Pulse Pulse Resp BP BP Pulse Ox 10/30/19 19:47 84 10/30/19 19:45 37.3 C 99 H 20 162/84 H 95 10/30/19 15:41 37.3 C 108 H 20 194/115 H 98 10/30/19 11:42 37.2 C 78 20 174/76 H 95 PG Care Time/CCT Total # of Minutes Spent Total Time Spent with Patient: Total time spent is greater than 50% in coordination of care (as documented) at patient's floor/unit and/or counseling patient: Coding Level of Care Code 16470 Subseq Hosp Care Lvl 3 Diagnoses Hematuria, gross R31.0 Time Spent (min) 35
--- NOTE | 2019-10-31 07:40 | Urology Progress Note ---
Date of Service October 31, 2019 Assessment & Plan (1) Hematuria, gross: 2 days status post cystoscopy, clot evacuation and catheter placement secondary to gross hematuria and suspected false passage Clinically improving He has had a correction in his hemoglobin which I anticipate may continue Active bleeding appears to have stopped Continue CBI for today, likely clamping trial tomorrow Subjective Subjectively much improved CBI running clear today with slow flow He reports he did have to have manually irrigated several times yesterday No complaints or pain today Physical Exam Physical Exam: Urine in the tubing clear on slow CBI Constitutional: well developed and well nourished Respiratory: no respiratory distress Cardiovascular: Extremities: no pedal edema Gastrointestinal (Abdomen): Inspection/Auscultation: abdomen normal to inspection Results & Data Vital Signs (Past 12 Hours) Vital Signs Temp Pulse Pulse Resp BP Pulse Ox 10/31/19 03:50 36.8 C 91 H 20 127/71 96 10/31/19 00:14 84 10/31/19 00:00 37.2 C 95 H 18 164/77 H 96 10/30/19 19:47 84 10/30/19 19:45 37.3 C 99 H 20 162/84 H 95 PG Care Time/CCT Total # of Minutes Spent Total Time Spent with Patient: Total time spent is greater than 50% in coordination of care (as documented) at patient's floor/unit and/or counseling patient: Coding Level of Care Code 99311 Subseq Hosp Care Lvl 2 Diagnoses Hematuria, gross R31.0
[2019-10-31 09:54] LABS: Basophils # (auto) 0.03 K/uL (0-0.2); Basophils % (auto) 0.3 %; Eosinophils # (auto) 0.12 K/uL (0-0.5); Eosinophils % (auto) 1.4 %; Hematocrit (blood only) 29.5 % (42-52); Hemoglobin 8.9 g/dL (14.0-18.0); Immature Granulocytes # (auto) 0.02 K/uL (0.00-0.02); Immature Granulocytes % (auto) 0.2 %; Lymphocytes # (auto) 2.19 K/uL (1.2-3.4); Lymphocytes % (auto) 25.4 %; Mean Corpuscular Hemoglobin 25.1 pg (25-34); Mean Corpuscular Hgb Conc 30.2 g/dL (32-36); Mean Corpuscular Volume 83.1 fL (80-100); Mean Platelet Volume 10.4 fL (7.4-10.4); Monocytes # (auto) 1.16 K/uL (0.11-0.59); Monocytes % (auto) 13.4 %; Neutrophils # (auto) 5.11 K/uL (1.4-6.5); Neutrophils % (auto) 59.3 %; Platelet Count 175 K/uL (130-400); RDW Coefficient of Variation 16.7 % (11.5-14.5); RDW Standard Deviation 51.1 fL (36.4-46.3); Red Blood Count 3.55 M/uL (4.7-6.1); White Blood Count 8.63 K/uL (4.8-10.8)
[2019-10-31 10:20] LABS: BUN Creatinine Ratio 9.5 (10-20); Calcium 7.5 mg/dl (8.5-10.1); Creatinine Clr Calc Pharmacy 29.6 ml/min; Est GFR (African American) 28.5; Est GFR (Non-African American) 24.6; Potassium 3.8 mmol/L (3.5-5.1)
[2019-10-31] MEDS: SODIUM CHLORIDE 0.9% 1000ML 1,000 ML IV SCH (12:11)
[2019-10-31] MEDS: AMLODIPINE BESYLATE 5 MG TAB PO SCH (20:03)
--- NOTE | 2019-10-31 22:47 | Hospitalist Progress Note ---
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 Gross hematuria -Abdomen pelvis CT: Interval development of moderate bilateral hydronephrosis and hydroureter. Evidence of bladder outlet obstruction with marked prostatomegaly and bladder distention. There is perivesical fat stranding. Gas within the bladder, possibly iatrogenic. Hyperdense debris within the dependent portion of the bladder, possibly representing hemorrhage -Status post cystoscopy/urethral dilation/clot evacuation/irrigation -Holding home aspirin -Three-way catheter in place draining more clear urine. Patient to be monitored on continuous bladder irrigation -Appreciate urology assistanceDr. Cota CKD IV -Cr 3.0 on admission. Baseline ~2.5 Improved to 2.34 -IVF NSS at 80 . EF from ECHO 2017 70% -Daily BMP FEN/GI: NSS at 100. Regular Diet DVT prophylaxis: Chemoprophylaxis deferred. SCDs Full code Dispo: Med Tele Admission and Anticipated Discharge Date Admission Date: October 29, 2019 Subjective 83 yo male reports feeling well. He has no new complaints at this time. Review of Systems Review of Systems: All systems reviewed & are unremarkable except as noted in HPI & below Physical Exam Physical Exam: Constitutional: WD/WN, vitals as above no acute distress Eyes: PERRL, conjunctivae normal, anicteric sclerae ENMT: external ear and nose normal, oropharynx normal Respiratory: normal respiratory effort, lungs clear to auscultation Cardiovascular: RRR, no murmur, no edema Gastrointestinal (Abdomen): Inspection/Auscultation: abdomen not distended Percussion/Palpation: no longer tender and abdomen soft; no guarding Skin: no rashes, warm and dry Psychiatric: A+Ox3, euthymic affect Results & Data Results & Data ([facility]) Vital Signs (Past 12 Hours) Vital Signs Temp Pulse Pulse Resp BP Pulse Ox 10/31/19 19:59 37.1 C 86 20 161/91 H 94 10/31/19 18:32 88 10/31/19 15:54 37.0 C 98 H 20 171/84 H 96 10/31/19 11:57 37.0 C 85 20 176/87 H 92 PG Care Time/CCT Total # of Minutes Spent Total Time Spent with Patient: Total time spent is greater than 50% in coordination of care (as documented) at patient's floor/unit and/or counseling patient: Coding Level of Care Code 65788 Subseq Hosp Care Lvl 2 Diagnoses Hematuria, gross R31.0 Time Spent (min) 25
[2019-11-01] MEDS: SODIUM CHLORIDE 0.9% 1000ML 1,000 ML IV SCH ×2 (00:41→12:20)
[2019-11-01 13:20] LABS: Hematocrit (blood only) 30.5 % (42-52); Hemoglobin 9.1 g/dL (14.0-18.0)
[2019-11-01 13:40] LABS: BUN Creatinine Ratio 8.8 (10-20); Calcium 7.9 mg/dl (8.5-10.1); Creatinine Clr Calc Pharmacy 29.6 ml/min; Est GFR (African American) 28.5; Est GFR (Non-African American) 24.6; Potassium 4.1 mmol/L (3.5-5.1)
--- NOTE | 2019-11-01 15:43 | Urology Progress Note ---
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 Given the severity of the bleeding previously we will leave the catheter in today and give him a voiding trial in the morning if continues to be clear if patient able to void would discharge subsequent to this. 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
[2019-11-01] MEDS ORDERED: HydrALAZINE HCL 20 MG/ML VIAL IV PRN (20:15)
[2019-11-01] MEDS: AMLODIPINE BESYLATE 5 MG TAB PO SCH (21:18)
[2019-11-01] MEDS ORDERED: lisinopriL 5 MG TAB PO ONE (22:27)
--- NOTE | 2019-11-01 22:27 | Hospitalist Progress Note ---
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 Gross hematuria -Abdomen pelvis CT: Interval development of moderate bilateral hydronephrosis and hydroureter. Evidence of bladder outlet obstruction with marked prostatomegaly and bladder distention. There is perivesical fat stranding. Gas within the bladder, possibly iatrogenic. Hyperdense debris within the dependent portion of the bladder, possibly representing hemorrhage -Status post cystoscopy/urethral dilation/clot evacuation/irrigation -Holding home aspirin -Three-way catheter in place draining more clear urine. Patient will kep grullon in place. irrigation will be stopped -Appreciate urology assistanceDr. Cota CKD IV -Cr 3.0 on admission. Baseline ~2.5 Improved -IVF NSS at 80 . EF from ECHO 2017 70% -Daily BMP FEN/GI: NSS at 100. Regular Diet DVT prophylaxis: Chemoprophylaxis deferred. SCDs Full code Dispo: Med Tele Admission and Anticipated Discharge Date Admission Date: October 29, 2019 Subjective 83 yo male reports feeling well. He has no new complaints at this time. Review of Systems Review of Systems: All systems reviewed & are unremarkable except as noted in HPI & below Physical Exam Physical Exam: Constitutional: WD/WN, vitals as above no acute distress Eyes: PERRL, conjunctivae normal, anicteric sclerae ENMT: external ear and nose normal, oropharynx normal Respiratory: normal respiratory effort, lungs clear to auscultation Cardiovascular: RRR, no murmur, no edema Gastrointestinal (Abdomen): Inspection/Auscultation: abdomen not distended Percussion/Palpation: no longer tender and abdomen soft; no guarding Skin: no rashes, warm and dry Psychiatric: A+Ox3, euthymic affect Results & Data Results & Data ([facility]) Vital Signs (Past 12 Hours) Vital Signs Temp Pulse Pulse Resp BP Pulse Ox 11/01/19 19:54 37.1 C 82 18 199/114 H 97 11/01/19 16:44 37.1 C 93 H 18 207/111 H 94 11/01/19 15:00 91 H 11/01/19 11:38 37.3 C 85 16 176/76 H 97 PG Care Time/CCT Total # of Minutes Spent Total Time Spent with Patient: Total time spent is greater than 50% in coordination of care (as documented) at patient's floor/unit and/or counseling patient: Coding Level of Care Code 45071 Subseq Hosp Care Lvl 2 Diagnoses Hematuria, gross R31.0 Time Spent (min) 25
[2019-11-02] MEDS: SODIUM CHLORIDE 0.9% 1000ML 1,000 ML IV SCH (01:09)
[2019-11-02 06:29] LABS: Hemoglobin 9.3 g/dL (14.0-18.0); Mean Corpuscular Hemoglobin 25.4 pg (25-34); Mean Platelet Volume 10.5 fL (7.4-10.4); Platelet Count 217 K/uL (130-400); RDW Coefficient of Variation 16.7 % (11.5-14.5); RDW Standard Deviation 50.2 fL (36.4-46.3); Red Blood Count 3.66 M/uL (4.7-6.1); White Blood Count 9.26 K/uL (4.8-10.8)
[2019-11-02 06:34] LABS: Calcium 7.8 mg/dl (8.5-10.1); Creatinine Clr Calc Pharmacy 33.8 ml/min; Est GFR (African American) 33.5; Est GFR (Non-African American) 28.9; Potassium 3.7 mmol/L (3.5-5.1)
--- NOTE | 2019-11-02 11:51 | Urology Progress Note ---
Date of Service November 02, 2019 Subjective Patient's afebrile vital signs are stable. He has no complaints. Urine draining via his Richard catheter is clear. He tells me he has had no troubles voiding at home. Richard catheter was removed today for voiding trial. As long as patient is able to void no further urologic intervention necessary I will check a postvoid residual at least one time Results & Data Vital Signs (Past 12 Hours) Vital Signs Temp Pulse Pulse Resp BP Pulse Ox 11/02/19 11:34 37.5 C 95 H 16 165/79 H 96 11/02/19 07:33 37.5 C 88 16 153/80 H 97 11/02/19 07:13 75 11/02/19 04:00 37.3 C 93 H 20 169/88 H 95 11/01/19 23:59 37.3 C 98 H 20 185/62 H 96 PG Care Time/CCT Total # of Minutes Spent Total Time Spent with Patient: Total time spent is greater than 50% in coordination of care (as documented) at patient's floor/unit and/or counseling patient: Coding Level of Care Code 34437 Subseq Hosp Care Lvl 1
[2019-11-02] MEDS ORDERED: Nursing to Pharmacy Communication SCH (13:15)
[2019-11-02] MEDS: AMLODIPINE BESYLATE 5 MG TAB PO SCH (20:56)
[2019-11-02] MEDS ORDERED: lisinopriL 5 MG TAB PO ONE (22:26)
--- NOTE | 2019-11-02 22:26 | Hospitalist Progress Note ---
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 Gross hematuria -Abdomen pelvis CT: Interval development of moderate bilateral hydronephrosis and hydroureter. Evidence of bladder outlet obstruction with marked prostatomegaly and bladder distention. There is perivesical fat stranding. Gas within the bladder, possibly iatrogenic. Hyperdense debris within the dependent portion of the bladder, possibly representing hemorrhage -Status post cystoscopy/urethral dilation/clot evacuation/irrigation -Holding home aspirin -Three-way catheter removed.. Patient will kep grullon in place. irrigation will be stopped -Appreciate urology assistanceDr. Cota. Will monitor for another day after catheter was removed as patient had a small amount of urine. Updated urologist. CKD IV -Cr 3.0 on admission. Baseline ~2.5 Improved DVT prophylaxis: Chemoprophylaxis deferred. SCDs Full code Dispo: Med Tele Admission and Anticipated Discharge Date Admission Date: October 29, 2019 Subjective 83 yo male is feeling better. He had his urinary catheter removed. he had an episode of small amount of blood in his urine. Review of Systems Review of Systems: All systems reviewed & are unremarkable except as noted in HPI & below Physical Exam Physical Exam: Constitutional: WD/WN, vitals as above no acute distress Eyes: PERRL, conjunctivae normal, anicteric sclerae ENMT: external ear and nose normal, oropharynx normal Respiratory: normal respiratory effort, lungs clear to auscultation Cardiovascular: RRR, no murmur, no edema Gastrointestinal (Abdomen): Inspection/Auscultation: abdomen not distended Percussion/Palpation: no longer tender and abdomen soft; no guarding Skin: no rashes, warm and dry Psychiatric: A+Ox3, euthymic affect Results & Data Results & Data ([facility]) Vital Signs (Past 12 Hours) Vital Signs Temp Pulse Pulse Resp BP BP Pulse Ox 11/02/19 19:00 37.2 C 88 20 181/99 H 97 11/02/19 16:45 94 H 159/85 H 11/02/19 16:00 91 H 11/02/19 15:38 36.9 C 124 H 18 189/87 H 96 11/02/19 11:34 37.5 C 95 H 16 165/79 H 96 PG Care Time/CCT Total # of Minutes Spent Total Time Spent with Patient: Total time spent is greater than 50% in coordination of care (as documented) at patient's floor/unit and/or counseling patient: Coding Level of Care Code 39450 Subseq Hosp Care Lvl 2 Diagnoses Hematuria, gross R31.0 Time Spent (min) 25
--- NOTE | 2019-11-20 07:58 | Discharge Summary ---
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 Of note patient is a poor historian with multiple conflicting reports and reviewing past notes and per patient's recollection. Patient follows with Dr. Warren of urology and Dr. Zhang of nephrology. Patient's last UTI 2 months ago. Today patient noted some urinary hesitancy along with hematuria in the form of large clots. Patient notes past history of obstruction. Onset was a few days ago. Patient takes a daily baby aspirin but does not take any other blood thinners. Patient otherwise denied any fevers, chills, nausea, vomiting, back/flank pain, abdominal pain, known sick contacts or recent travel anywhere. Dr. Cota of urology saw the patient in the ER for assistance and catheter placement. Nursing was unable to find urethral meatus secondary to patient's severe phimosis. Urology was able to access the meatus however was unable to pass past the bulbar urethra even with multiple different catheter sizes. Each pass of the catheter yielded large amounts of clots that appear to be old blood. Given patient's inability to void and likely presumed large clot retention patient was taken for emergent procedure to relieve obstruction and drain clot material. Pertinent labs: WBC 14.10, hemoglobin 12.6, creatinine 3.0, BUN 20, glucose 133, otherwise unremarkable UAlargely unable to quantitate due to urine color interference. Greater than 30 RBC, greater than 30 WBC, 1+ bacteria Abdomen pelvis CT: Interval development of moderate bilateral hydronephrosis and hydroureter. Evidence of bladder outlet obstruction with marked prostatomegaly and bladder distention. There is perivesical fat stranding. Gas within the bladder, possibly iatrogenic. Hyperdense debris within the dependent portion of the bladder, possibly representing hemorrhage ER course: IV atropine 0.5 mg, IV Rocephin 1 g, IV ephedrine 5 mg, IV fentanyl 50 mcg / 100 mcg, IV Dilaudid 0.5 mg, NSS 0.5L Patient seen and evaluated in MICU after procedure. Patient tolerated procedure well and with no other acute concerns or complaints. Family history: No significant history of malignancy Surgical history: Status post TURP 2017 Social history: Admits to chewing tobacco however denies any smoking or alcohol use or illicit drug use Principal Diagnosis hematuria Discharge Exam Constitutional: WD/WN, vitals as above no acute distress Eyes: PERRL, conjunctivae normal, anicteric sclerae ENMT: external ear and nose normal, oropharynx normal Respiratory: normal respiratory effort, lungs clear to auscultation Cardiovascular: RRR, no murmur, no edema Gastrointestinal (Abdomen): Inspection/Auscultation: abdomen not distended Percussion/Palpation: no longer tender and abdomen soft; no guarding Skin: no rashes, warm and dry Psychiatric: A+Ox3, euthymic affect Discharge Data Allergies Allergy/AdvReac Type Severity Reaction Status Date / Time No Known Allergies Allergy Unverified 10/29/19 16:11 Consultations 10/29/19 18:24 Consult Urology Stat 10/29/19 20:15 ED Decision to Admit Stat Procedures Performed Operation Date: 10/29/19 19:45 Actual Procedures p Cystoscopy, Dilation, Clot Evacuation(Not Applicable) - Sergo Cota, Ordered Studies 10/29/19 18:24 CT abd pelvis wo con Stat Hospital Course (1) Hematuria, gross: 83-year-old male with past medical history 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 Gross hematuria -Abdomen pelvis CT: Interval development of moderate bilateral hydronephrosis and hydroureter. Evidence of bladder outlet obstruction with marked prostatome angela and bladder distention. There is perivesical fat stranding. Gas within the bladder, possibly iatrogenic. Hyperdense debris within the dependent portion of the bladder, possibly representing hemorrhage -Status post cystoscopy/urethral dilation/clot evacuation/irrigation -Holding home aspirin -Three-way catheter removed. irrigation stopped. Had non bloody urination on discharge. -Appreciate urology assistanceDr. Cota. Will monitor for another day after catheter was removed as patient had a small amount of urine. Updated urologist. Will recommend to hold aspirin for now CKD IV -Cr 3.0 on admission. Baseline ~2.5 Improved DVT prophylaxis: Chemoprophylaxis deferred. SCDs Full code Dispo: [facility] Total Time Total Time Spent Total Time Spent (In Minutes): 32 Total Time Includes: Examination of the Patient, Discharge Planning and Medication Reconciliation Discharge Plan Discharge Items Patient Disposition: Home - Self-Care Reason For Visit: UTI Discharge Diagnosis: Hematuria Activity: Resume your previous activity Non-emergency contact: Primary Care Provider Call non-emergency contact if: you have any medication questions Follow-up/Referrals: PCP,NO [Primary Care Provider] - Diet: Regular Addtl Attending Provider Instructions: You have been hospitalized for an acute medical problem. During your stay at [facility], we have made an effort to correct the problem that brought you to the hospital while keeping you as comfortable as possible. Medications were used to bring your condition under control and your discharge instructions will include directions for any medications you should take after leaving the hospital. Please make sure you see your Primary Care Provider as part of your follow up plan. You had blood in your bladder. Your bladder was cleaned and the catheter was removed. will hold aspirin for now. Recommend followup with PCP and Urology within next month. Pending Studies at Discharge: No Stand-Alone Forms: My [facility], Smoking Cessation Medications and DC Order Prescriptions: New amlodipine [Norvasc] 5 mg Tablet 2.5 mg PO QPM Qty: 30 RF: 0 tamsulosin 0.4 mg capsule 0.4 mg PO HS Qty: 30 RF: 0 lisinopril 5 mg tablet 5 mg PO PM Qty: 30 RF: 0 Continued multivitamin Tablet 1 tab PO DAILY RF: 0 Discharge Orders: Discharge Order (Routine); Ordered 11/03/19 Ordered By: Roberto Mcqueen Admission Data Admit Date/Time: 10/29/19 21:39 Attending Provider: Roberto Mcqueen Admit Provider: Tuan Srinivasan Primary Care Provider: PCP,NO Other Providers: Natalie Thornton ; Sergo Cota ; Fabien Manuel ; Brady Bill ; Benito Ness ; Felix Tang Other Interventions: Discharge Summary Assessment (RN) Last Done: 11/03/19 12:26 Coding Level of Care Code D/C Day Management >30 mins Diagnoses Hematuria, gross R31.0 Time Spent (min) 35
== END 2019-11-03 12:49 | disposition home or self-care (01) | DRG 694 ==
LOC: ED 14:17 → OR 20:04 → SUATTDRO 21:39 → 2N 21:39 → UNDODISIN 11-03 12:28

== ENCOUNTER 2020-04-23 18:25 | Inpatient (IN) ==
--- NOTE | 2020-04-23 18:54 | Emergency Department Note ---
Impression & Plan GILMA (acute kidney injury), HTN (hypertension) ED Provider Note NAME: JOSÉ MIGUEL DUNAWAY AGE: 84 SEX: M : 1935 ARRIVES VIA: Walk-In INFORMANT: Patient ED PROVIDER(S): Tyson Lee DO CHIEF COMPLAINT: Referred in for acute kidney injury HPI: Patient is an 84-year-old male with past medical history of GILMA, hypertension renal mass and enlarged prostate with urethral stricture that presents the ER referred in by PCP for acute kidney injury. He has no complaint s at this time. He denies any headache or change in vision. No chest pain or shortness of breath. No nausea vomiting or diarrhea. No dysuria urgency or frequency. He had blood work done in his PCPs office and found to have a creatinine of 4.33 is up from his previous at 3. He has no other complaints at this time. He notes that he was referred in for kidney issues. He has been eating and drinking normally. He restarted his medication which makes him urinate which he has not taken for over a month as he was instructed to take it by his PCP today. ROS: See above HPI for pertinent positives & negatives. A total of 10 systems reviewed and were otherwise negative. PAST MEDICAL HISTORY:See Below PAST SURGICAL HISTORY:See Below FAMILY HISTORY:See Below SOCIAL HISTORY:See Below HOME MEDICATIONS:See Below ALLERGIES:See Below VITALS:See Below PHYSICAL EXAMINATION: GENERAL: Sitting up in bed, alert, well appearing, well nourished, no distress, non-toxic EYE EXAM: normal conjunctiva. OROPHARYNX: mask in place LUNGS: Clear to auscultation. Normal chest wall mechanics HEART: no murmurs, S1 normal and S2 normal ABDOMEN: abdomen soft, non-tender, normo-active bowel sounds, no masses, no r ebound or guarding. UPPER EXTREMITIES: upper extremities are grossly normal. LOWER EXTREMITIES: No pitting edema. NEURO EXAM: Normal sensorium, cranial nerves II-XII grossly intact, normal speech, no gross weakness of arms, no gross weakness of legs. MEDICAL DECISION MAKING: Patient is an 84-year-old male who presents the ER following having blood work done at PCPs office and referred in for acute kidney injury. He was markedly hypertensive initially at 205 but SBPs trended down to 150 w/o intervention. He has no other complaints. Extremely hard of hearing. Labs were obtained as an outpatient and showed no significant leukocytosis or anemia. BMP with a cr eatinine of 4.33 up from over the summer where it was 3 prior to this is baseline appears to be 2.4. UA was contaminated with multiple epithelial cells at that time. Patient was markedly hypertensive with systolic pressures in the 180s there in the office. It appears he was restarted on lisinopril and blood work was obtained. He was referred in with the elevation in the creatinine. Bladder scan was performed in the ER, Post void showed greater than 500. Grullon was ordered. Labs this afternoon with no significant changes there is no white count and hemoglobin 11.8. Creatinine was 4.3. LFTs bilirubin and lipase was unremarkable. Blood pressure trended down on its own from 200-150. Discussed the case with Dr. Steve Shannon for further evaluation. Unable to place grullon and consulted Urology. Triage Nursing notes reviewed. Limited review of prior medical records performed Vital Signs: reviewed and remarkable for HTN Differential diagnosis: Infection, dehydration, metabolic abnormality, hypo/hyperglycemia, electrolyte disturbance, anemia, hypoxia, cardiac sources, intracerebral event, toxicologic, neurologic, as well as other pathologies. ER treatment provided: See below Diagnostics interpreted by me: ECG: Sinus rhythm rate of 92 Bigeminy Right bundle branch block Left axis Inverted T waves in V1 and V3 QTC 452 Cardiac Monitoring: An order was placed for continuous cardiac monitoring. The monitor shows a rate of 80 with sinus rhythm. Laboratory studies: As stated above and show below. Imaging studies: See below Consultation(s): Discussed with hospitalist for further evaluation Discussed with Dr. Tang who will come in to place Grullon. 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 Beliefs That Will Affect Care: None marital status: Current Living Situation: Spouse current occupational status: retired Feels Safe at Home: Yes Assistive Devices: Glasses Allergies Allergies Allergy/AdvReac Type Severity Reaction Status Date / Time No Known Allergies Allergy Verified 04/23/20 19:27 Home Meds Home Medications Medication Instructions Recorded Confirmed multivitamin 1 tab PO QAM 06/03/19 04/23/20 aspirin [Aspir-Low] 81 mg PO QPM 02/07/20 04/23/20 Beet Extract 1 cap PO TID 04/23/20 04/23/20 Previous Rx's Medication Instructions Recorded amlodipine 5 mg tablet 2.5 mg PO QPM #30 tab 11/23/19 tamsulosin 0.4 mg capsule 0.4 mg PO HS #30 cap 04/23/20 Results & Data (ED) Vital Signs Vital Signs - 24 hr 04/23/20 18:35 04/23/20 19:11 04/23/20 19:20 Temperature 36.9 C Temperature Source Oral Pulse Rate 83 96 H 94 H Respiratory Rate 18 18 14 Blood Pressure 205/110 H 178/108 H Blood Pressure Mean 141 132 Pulse Oximetry 95 Oxygen Delivery Method Room Air Sepsis Recent Fever Within 48 Hours No Sepsis New/Unexplained Change in Mental Status No Sepsis Action Taken by Nursing No Action Required 04/23/20 19:21 04/23/20 19:30 04/23/20 19:31 Temperature Temperature Source Pulse Rate 86 90 Respiratory Rate 14 20 Blood Pressure 150/90 H Blood Pressure Mean 110 Pulse Oximetry 97 Oxygen Delivery Method Room Air Sepsis Recent Fever Within 48 Hours Sepsis New/Unexplained Change in Mental Status Sepsis Action Taken by Nursing 04/23/20 20:11 Temperature Temperature Source Pulse Rate 90 Respiratory Rate 24 Blood Pressure Blood Pressure Mean Pulse Oximetry 98 Oxygen Delivery Method Sepsis Recent Fever Within 48 Hours Sepsis New/Unexplained Change in Mental Status Sepsis Action Taken by Nursing Laboratory Data Result diagrams: 04/23/20 18:52 04/23/20 18:52 Lab Results 04/23/20 04/23/20 04/23/20 Range/Units 18:52 18:52 19:15 WBC 9.15 (4.8-10.8) K/uL RBC 3.87 L (4.7-6.1) M/uL Hgb 11.8 L (14.0-18.0) g/dL Hct 36.7 L (42-52) % MCV 94.8 (80-100) fL MCH 30.5 (25-34) pg MCHC 32.2 (32-36) g/dL RDW Std Deviation 46.9 H (36.4-46.3) fL RDW Coeff of Tono 13.6 (11.5-14.5) % Plt Count 198 (130-400) K/uL MPV 10.0 (7.4-10.4) fL Immature Gran % (Auto) 0.3 % Neut % (Auto) 44.9 % Lymph % (Auto) 41.0 % [place] % (Auto) 12.0 % Eos % (Auto) 1.3 % Baso % (Auto) 0.5 % Neut # (Auto) 4.10 (1.4-6.5) K/uL Lymph # (Auto) 3.75 H (1.2-3.4) K/uL [place] # (Auto) 1.10 H (0.11-0.59) K/uL Eos # (Auto) 0.12 (0-0.5) K/uL Baso # (Auto) 0.05 (0-0.2) K/uL Immature Gran # (Auto) 0.03 H (0.00-0.02) K/uL Sodium 141 (136-145) mmol/L Potassium 3.9 (3.5-5.1) mmol/L Chloride 111 H (98-107) mmol/L Carbon Dioxide 23 (21-32) mmol/L Anion Gap 8.0 (3-11) BUN 35 H (7-18) mg/dl Creatinine 4.30 H (0.6-1.4) mg/dl Est Cr Clr Drug Dosing 15.4 ml/min Est GFR ( Amer) 13.6 Est GFR (Non-Af Amer) 11.7 BUN/Creatinine Ratio 8.1 L (10-20) Glucose 104 H (70-99) mg/dl Calcium 9.3 (8.5-10.1) mg/dl Total Bilirubin 0.6 (0.2-1) mg/dl AST 34 (15-37) U/L ALT 28 (12-78) U/L Alkaline Phosphatase 89 (45-117) U/L Total Protein 7.7 (6.4-8.2) gm/dl Albumin 3.1 L (3.4-5.0) gm/dl Globulin 4.6 H (2.5-4.0) gm/dl Albumin/Globulin Ratio 0.7 L (0.9-2) Lipase 325 (73-393) U/L COVID-19 Eval [facility] SARS-CoV-2, RNA, NAAT (NEGATIVE) 04/23/20 Range/Units 19:15 WBC (4.8-10.8) K/uL RBC (4.7-6.1) M/uL Hgb (14.0-18.0) g/dL Hct (42-52) % MCV (80-100) fL MCH (25-34) pg MCHC (32-36) g/dL RDW Std Deviation (36.4-46.3) fL RDW Coeff of Tono (11.5-14.5) % Plt Count (130-400) K/uL MPV (7.4-10.4) fL Immature Gran % (Auto) % Neut % (Auto) % Lymph % (Auto) % [place] % (Auto) % Eos % (Auto) % Baso % (Auto) % Neut # (Auto) (1.4-6.5) K/uL Lymph # (Auto) (1.2-3.4) K/uL [place] # (Auto) (0.11-0.59) K/uL Eos # (Auto) (0-0.5) K/uL Baso # (Auto) (0-0.2) K/uL Immature Gran # (Auto) (0.00-0.02) K/uL Sodium (136-145) mmol/L Potassium (3.5-5.1) mmol/L Chloride (98-107) mmol/L Carbon Dioxide (21-32) mmol/L Anion Gap (3-11) BUN (7-18) mg/dl Creatinine (0.6-1.4) mg/dl Est Cr Clr Drug Dosing ml/min Est GFR ( Amer) Est GFR (Non-Af Amer) BUN/Creatinine Ratio (10-20) Glucose (70-99) mg/dl Calcium (8.5-10.1) mg/dl Total Bilirubin (0.2-1) mg/dl AST (15-37) U/L ALT (12-78) U/L Alkaline Phosphatase (45-117) U/L Total Protein (6.4-8.2) gm/dl Albumin (3.4-5.0) gm/dl Globulin (2.5-4.0) gm/dl Albumin/Globulin Ratio (0.9-2) Lipase (73-393) U/L COVID-19 Eval Order SARS-CoV-2, RNA, NAAT NEGATIVE (NEGATIVE) Discharge Plan Visit Data Chief Complaint: Abnormal Labs/Diagnostic Testing Stated Complaint: LAB WORK CAME BACK NOT NORMAL ED Provider: Tyson Lee Discharge Problem: GILMA (acute kidney injury), HTN (hypertension) Forms Stand Alone Forms: My [facility] Prescriptions Prescriptions: No Action amlodipine [Norvasc] 5 mg tablet 2.5 mg PO QPM Qty: 30 RF: 5 tamsulosin 0.4 mg capsule 0.4 mg PO HS Qty: 30 RF: 5 multivitamin Tablet 1 tab PO QAM RF: 0 aspirin [Aspir-Low] 81 mg Tablet,Delayed Release (Dr/Ec) 81 mg PO QPM RF: 0 Beet Extract 1 cap PO TID RF: 0 Discharge Problem: HTN (hypertension) Qualifiers: Hypertension type: unspecified Qualified Code(s): I10 - Essential (primary) hypertension
[2020-04-23 19:05] LABS: Basophils # (auto) 0.05 K/uL (0-0.2); Basophils % (auto) 0.5 %; Eosinophils # (auto) 0.12 K/uL (0-0.5); Eosinophils % (auto) 1.3 %; Hematocrit (blood only) 36.7 % (42-52); Hemoglobin 11.8 g/dL (14.0-18.0); Immature Granulocytes # (auto) 0.03 K/uL (0.00-0.02); Immature Granulocytes % (auto) 0.3 %; Lymphocytes # (auto) 3.75 K/uL (1.2-3.4); Mean Corpuscular Hemoglobin 30.5 pg (25-34); Mean Corpuscular Hgb Conc 32.2 g/dL (32-36); Mean Corpuscular Volume 94.8 fL (80-100); Neutrophils % (auto) 44.9 %; Platelet Count 198 K/uL (130-400); RDW Coefficient of Variation 13.6 % (11.5-14.5); RDW Standard Deviation 46.9 fL (36.4-46.3); Red Blood Count 3.87 M/uL (4.7-6.1); White Blood Count 9.15 K/uL (4.8-10.8)
[2020-04-23 19:22] LABS: Albumin Level 3.1 gm/dl (3.4-5.0); BUN Creatinine Ratio 8.1 (10-20); Calcium 9.3 mg/dl (8.5-10.1); Creatinine Clr Calc Pharmacy 15.4 ml/min; Est GFR (African American) 13.6; Est GFR (Non-African American) 11.7; Potassium 3.9 mmol/L (3.5-5.1)
[2020-04-23 19:31] LABS: Albumin Globulin Ratio 0.7 (0.9-2); Bilirubin,Total 0.6 mg/dl (0.2-1); Globulin 4.6 gm/dl (2.5-4.0); Total Protein 7.7 gm/dl (6.4-8.2)
--- NOTE | 2020-04-23 20:13 | History & Physical Report ---
Date of Service April 23, 2020 Assessment & Plan (1) GILMA (acute kidney injury): Mr. 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 - baseline Cr 2.5 (in 10/2019). Cr elevated to 4.3 today. - BUN at 35. 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 - Urine culture pending - patient afebrile, without flank pain - WBC normal - will hold off on antibiotics at this time. Follow culture - after grullon cath is placed, we will order IVF. Repeat UA at this time. (4) HTN (hypertension): - patient with history of HTN - previously had been on both lisinopril and amlodipine in the past - they were discontinued for a period of time. At his PCP visit today, he was directed to resume lisinopril, 5mg,daily. - will hold WICHO inhibitor in the setting of acute UTI. - Recommend he resume amlodipine 2.5mg, PO daily (5) Right renal mass: - patient with known R renal mass - he has declined surveillance imaging in the past, however CT scans performed during various ED visits show stable size at 1.9cm - suspect this is benign (6) Cardiac arrhythmia: - no history of arrhythmia - EKG on admission showing Afib vs. atrial bigeminy. official read pending. - appeared to convert spontaneously on alarm security or surveillance monitor - rate controlled at this time - if rate increases, would recommend switching from amlodipine to Cardizem (for inotropic effects). - [id number] score of 3, making him a moderate to high risk candidate - assess for hematuria (clots) after grullon is placed; if there are many recommend holding off on anticoag. But if few/none and patient appears to be going in and out of Afib, would start on DOAC. (7) Anemia: - hgb 11.8 on admission - MCV 94 - vitamin B12 level 402, folate >20 - iron level 38, Ferritin 122, transferrin 195 - patient was on a home oral iron supplement in the past but was reportedly told to discontinue Dispo: Med/Surg with tele. 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 Mr. Reed presented to his PCP for a routine chronic disease follow up - he did not have any new concerns. He was contacted by his providers office after he returned home when his serum creatinine returned at 4.33. Mr. Reed has been seen by [facility] in the past, but tends to get lost to follow up for periods of time. Of note, he was seen in the ED in November, at which time he was experiencing hematuria and urinary hesitancy. Dr. Cota of urology saw the patient in the ER at the time for assistance with catheter placement, but was unable to pass the bulbar urethra even with multiple different catheter sizes. Dr. Cota ended up taking him to the OR for emergent catheter placement to relieve his obstruction. He had a telehealth visit with Dr. Cota in 12/2019 and was directed to come to the office for a cystoscopy - this procedure was reportedly scheduled but Mr. Reed never had it done. He also reportedly stopped his flomax, although it is unclear why or who told him to do so. Today, Mr. Reed reports he is feel well, at his baseline. He reports urinary frequency (having to go every 10-15 min), but producing only a small volume with each void. He reports difficulty with initiating stream and dribbling at the end. These symptoms are chronic for him - he denies any acute worsening. No personal or family history of malignancy. Non-smoker. In the ED, his WBC was normal. Hgb 11.8, MCV 94. UA 2+ LE, > 30 WBCs, - nitrite, - bacteria. Urine culture pending. Cr 4.3. Bun 35. Electrolytes WNL. Lipase 325. COVID 19 neg. EKG read with atrial fibrillation, however on my read it appears to have P-waves. Renal US showing ordered. Grullon catheter placement was attempted in ED but unsuccessful. ED provider paged Urology to ED to attempt placement. Allergies Allergy/AdvReac Type Severity Reaction Status Date / Time No Known Allergies Allergy Verified 04/23/20 19:27 Home Medications Medication Instructions Recorded Confirmed Type multivitamin 1 tab PO QAM 06/03/19 04/23/20 History amlodipine 5 mg tablet 2.5 mg PO QPM #30 tab 11/23/19 04/23/20 Rx aspirin [Aspir-Low] 81 mg PO QPM 02/07/20 04/23/20 History Beet Extract 1 cap PO TID 04/23/20 04/23/20 History tamsulosin 0.4 mg capsule 0.4 mg PO HS #30 cap 04/23/20 04/23/20 Rx Past Med/Surg History Medical History Enlarged prostate M[place]INEE (hard of hearing) Hx of deep venous thrombosis Prostatic hemorrhage Right renal mass Vitamin D deficiency Surgical History History of prostate surgery Family History Other Family history non-contributory Social History Smoking Status: Never smoker Second Hand Exposure: No; Hx Alcohol Use: No Hx Substance Use: No Preferred Language: Welsh Communication Ability: Effective Visual Impairment: No Limitations Hearing Ability: Hard of Hearing 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 Beliefs That Will Affect Care: None marital status: Current Living Situation: Spouse current occupational status: retired Feels Safe at Home: Yes Assistive Devices: Glasses Review of Systems Constitutional: no fever and no chills Cardiovascular: no chest pain, no dyspnea on exertion and no palpitations Genitourinary: + urinary frequency, + post-void dribbling and + urinary urgency; no dysuria and no flank pain Physical Exam Constitutional: WD/WN, vitals as above cooperative; no acute distress Eyes: + anicteric sclerae ENMT: external ear and nose normal, oropharynx normal Ears: + hearing impairment Neck: normal visual inspection and trachea midline Respiratory: normal respiratory effort, lungs clear to auscultation Auscultation: + wheezes (on expiraton); no crackles and no rales Cardiovascular: Rate/Rhythm: regular rate and + irregularly irregular Heart Sounds: normal S1 and normal S2 Extremities: + pedal edema (trace, b/l) Gastrointestinal (Abdomen): Inspection/Auscultation: + abdomen distended and normal bowel sounds Percussion/Palpation: abdomen soft; abdomen nontender and no guarding Skin: no rashes, warm and dry Neurologic: moves all extremities Genitourinary: + bladder abnormality (distention ) and + phimosis; no CVA tenderness Results & Data Results & Data ([facility]) Vital Signs (Past 12 Hours) Vital Signs Temp Pulse Resp BP Pulse Ox 04/23/20 19:31 90 20 04/23/20 19:30 86 14 150/118 H 04/23/20 19:21 97 04/23/20 19:20 94 H 14 04/23/20 19:11 96 H 18 178/108 H 04/23/20 18:35 36.9 C 83 18 205/110 H 95 Supervising Physician Co-Signing Physician Notes Attending addendum: I have physically seen this patient, have supervised the medical residents activities, and agree with the H&P unless as otherwise noted. Assessment and Plan: BPH with LUTS/obstructive uropathy/urethral stricture/history of TURP procedure in 2017- Increase tamsulosin from 0.4 to 0.8 mg p.o. at bedtime Urology Dr. Tang placed Grullon catheter in the ED Follow urine culture and sensitivity Ceftriaxone 1 g IV daily NSS to the 100 mils per hour Stable right renal mass noted compared to previous imaging Follow serial CBC with differential and chemistry profile Order renal ultrasound Hypertension- Hold lisinopril which had been empirically resumed in the outpatient setting prior to laboratories obtained in ED Resume amlodipine 2.5 mg p.o. daily Remainder of orders and notations as noted Resident Activity Tracking Resident Involvement: Resident Care Provided Care Provided: Adult Hospital Medicine (1) HTN (hypertension) Hypertension type: unspecified Qualified Code(s): I10 - Essential (primary) hypertension
--- NOTE | 2020-04-23 21:55 | Urology Consultation ---
Date of Consultation April 23, 2020 Assessment & Plan (1) Urinary retention: Assessment Urinary retention Richard successfully passed Recommend leaving the Richard in place after discharge until the patient is evaluated in our office. 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 Patient's phallus was prepped and draped in a sterile fashion he did have a phimosis. Initially I tried to pass a 16 Monegasque coud catheter but was unsuccessful in terms of getting it into his bladder. He was filiforms and followers to dilate the bladder neck. He is post greenlight laser prostatectomy by Dr. Warren and has had troubles ever since. After dilating the bladder neck I was able to successfully pass a 16 Monegasque coud catheter into the bladder I drained 900 cc of straw-colored urine. Patient had immediate relief of his abdominal discomfort. He is being admitted by the hospitalist service Allergies Allergy/AdvReac Type Severity Reaction Status Date / Time No Known Allergies Allergy Verified 04/23/20 19:27 Home Medications Medication Instructions Recorded Confirmed Type multivitamin 1 tab PO QAM 06/03/19 04/23/20 History amlodipine 5 mg tablet 2.5 mg PO QPM #30 tab 11/23/19 04/23/20 Rx aspirin [Aspir-Low] 81 mg PO QPM 02/07/20 04/23/20 History Beet Extract 1 cap PO TID 04/23/20 04/23/20 History tamsulosin 0.4 mg capsule 0.4 mg PO HS #30 cap 04/23/20 04/23/20 Rx Patient History Medical History (Updated 04/23/20 @ 21:13 by Gaby Blank MD) Enlarged prostate QUILEUTE (hard of hearing) Hx of deep venous thrombosis Prostatic hemorrhage Right renal mass Vitamin D deficiency Surgical History History of prostate surgery Family History Other Family history non-contributory Social History Smoking Status: Never smoker Second Hand Exposure: No; Do You Dip or Chew Tobacco: Yes (1 bag/2days); Hx Alcohol Use: No Hx Substance Use: No Preferred Language: Slovak Communication Ability: Effective Hearing Ability: Hard of Hearing 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 Beliefs That Will Affect Care: None marital status: Current Living Situation: Spouse current occupational status: retired Feels Safe at Home: Yes Assistive Devices: Denture - Upper and Denture - Lower Physical Exam Physical Exam: Constitutional Well-developed well-nourished In no acute distress, Healthy appearing Neuro/psych Alert and oriented x3 Normal mood Normal affect Normal coordination Skin Normal color Normal turgor No rashes Warm and Dry Neck Normal visual inspection Pulmonary Normal rhythm and effort No respiratory distress No audible wheezes Able to speak in complete sentences Cardiac No peripheral edema phallus shows a phimosis Scrotum is unremarkable Both testes in the scrotal sac without mass or tenderness Results & Data ([facility]) Vital Signs (Past 12 Hours) Vital Signs Temp Pulse Resp BP Pulse Ox 04/23/20 21:40 85 18 174/117 H 97 04/23/20 20:11 90 24 98 04/23/20 19:31 90 20 04/23/20 19:30 86 14 150/90 H 04/23/20 19:21 97 04/23/20 19:20 94 H 14 04/23/20 19:11 96 H 18 178/108 H 04/23/20 18:35 36.9 C 83 18 205/110 H 95 PG Care Time/CCT Total # of Minutes Spent Total Time Spent with Patient: Total time spent is greater than 50% in coordination of care (as documented) at patient's floor/unit and/or counseling patient: Coding Level of Care Code 34926 Office/Outpt Visit, New Diagnoses Urinary retention R33.9
[2020-04-23] MEDS ORDERED: SODIUM CHLORIDE 0.9% 1000ML 1,000 ML IV ONE (22:35)
[2020-04-23] MEDS ORDERED: ONDANSETRON INJ 2 MG/ML 2 ML VIAL IV PRN (22:35)
[2020-04-23] MEDS ORDERED: ACETAMINOPHEN 325 MG TAB PO PRN (22:35)
[2020-04-23] MEDS ORDERED: ASPIRIN 81 MG ECTAB PO SCH (22:35)
[2020-04-23] MEDS ORDERED: POLYETHYLENE (MIRALAX) 17 GM PACK PO PRN (22:35)
[2020-04-23 23:06] LABS: Appearance Urine Clear (Clear); Bilirubin Urine Negative (Negative); Blood Urine 3+ (Negative); Color Urine Red; Glucose Urine UA Negative (Negative); Ketones Urine Negative (Negative); Leukocyte Esterase Urine Negative (Negative); Nitrite Urine Negative (Negative); Protein Urine 3+ (Negative); Urobilinogen Urine Negative (Negative); pH Urine 7.5 (4.5-7.5)
[2020-04-23] MEDS: amLODIPine BESYLATE 5 MG TAB PO SCH (23:29)
[2020-04-23] MEDS: TAMSULOSIN HCL 0.4 MG CAP PO SCH (23:29)
[2020-04-23 23:37] LABS: Bacteria Urine Negative (Negative); RBC Urine >30 /hpf (0-4)
[2020-04-24] MEDS: SODIUM CHLORIDE 0.9% 1000ML 1,000 ML IV SCH ×3 (04:09→20:04)
[2020-04-24 06:58] LABS: BUN Creatinine Ratio 7.4 (10-20); Calcium 8.4 mg/dl (8.5-10.1); Creatinine Clr Calc Pharmacy 18.2 ml/min; Est GFR (African American) 14.7; Est GFR (Non-African American) 12.7; Potassium 3.9 mmol/L (3.5-5.1)
--- NOTE | 2020-04-24 07:42 | Ultrasound Report ---
EXAMINATION: RENAL ULTRASOUND CLINICAL HISTORY: Urinary retention EVALUATE FOR HYDRONEPHROSIS COMPARISON STUDY: Noncontrast CT scan dated 10/29/2019 FINDINGS: The right kidney measures 0.3 cm. The left kidney measures 11.2 cm. There is moderate to s evere bilateral hydronephrosis. There is a 28 mm solid mass arising from the upper pole the right ki dney. Is a 15 mm left renal cyst. There is a joint Richard catheter. The bladder was empty the time of scanning. The prostate is enlarged . IMPRESSION : 1. Moderate to severe bilateral hydronephrosis 2. Suspected 28 mm solid right renal mass. A dedicated renal CT scan or MRI is recommended in follow- up. 3. Prostatomegaly ACT 112: Positive. There are findings on this exam that require communication between the performing entity and the patient following Patient Test Result Information Act ([place] Act 112) guidelines. Electronically signed by: Rony Hopkins M.D. 04/24/2020 7:41 AM
[2020-04-24] MEDS: FINASTERIDE 5 MG TAB PO SCH (08:39)
--- NOTE | 2020-04-24 09:57 | Hospitalist Progress Note ---
Date of Service April 24, 2020 Assessment & Plan (1) GILMA (acute kidney injury): Mr. 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 GILMA on CKD IV - baseline Cr 2.5 (in 10/2019). Cr up to 4.3 on admission, down 4.0 this AM - suspect obstruction given hx stricture requiring OR grullon placement vs. new renal mass impeding function - renal US showing 2.8 cm R renal mass, will order f/u MRI given GILMA and avoiding contrast - flomax, urology consulted for grullon management - fluid management: NS @125, strict I/O - daily BMP HTN - continue amlodipine 2.5 mg - holding lisinopril in setting of GILMA New Cardiac Arrhythmia - EKG atrial bigeminy with RBBB - appeared to convert spontaneously on nurse monitoring - rate controlled at this time Chronic Anemia - hgb 11.8 on admission - likely secondary to CKD IV - MCV 94 - vitamin B12 level 402, folate >20 - iron level 38, Ferritin 122, transferrin 195 - patient was on a home oral iron supplement in the past but was reportedly told to discontinue Dispo: Med/Surg with tele. Diet: NPO in anticipation of possible procedure DVT ppx: SCDs, holding chemo given hematuria Code: Full (2) Urinary retention: (3) UTI (urinary tract infection): (4) HTN (hypertension): (5) Right renal mass: (6) Cardiac arrhythmia: (7) Anemia: Admission and Anticipated Discharge Date Admission Date: April 23, 2020 Supervising Physician Co-Signing Physician Notes I personally examined the patient and verified all allen points of history and exam, discussed case, and agree with decision making with Dr Zeng feeling better since cath in - very appreciative of urology efforts and wants to pass along his gratitude. for procedure tomorrow no other new complaints vitals noted nad heent nc at mmm breathing unlabored no accessory muscles good effort skin no rashes no pallor or icterus neuro no focal deficits GILMA on CKD4 - worrisome that he may have also ongoing progression of baseline creatinine given his creatinine readings over the last year. certainly alleviating the obstruction did cause some improvement - will have to continue to follow. for procedure tomorrow otherwise as above Subjective admitted overnight for GILMA on CKD after PCP got Cr in office that was elevated. Denies any pain or problems with urine output. no back pain. no burning with urination. no weakness, lethargy. Mostly concerned about caring for his spouse at home who has been bedridden for years not having a brick sorter while he is in the hospital. Review of Systems Review of Systems: All systems reviewed & are unremarkable except as noted in Subjective Physical Exam Physical Exam: Constitutional: obese, in no apparent distress, sitting comfortably in bed. Cardiac: RRR, no murmurs, gallops or rubs. Normal S1, S2 Pulm: CTA BL, no wheezes, rhonchi, crackles or rubs, moving air well throughout both lungs Abd: soft, nontender, nondistended, normal bowel sounds, no rebound or guarding, no suprapubic tenderness : grullon cath in place, draining grossly bloody urine with bloody urine in bag Results & Data Results & Data ([facility]) Vital Signs (Past 12 Hours) Vital Signs Temp Pulse Pulse Pulse Resp BP BP 04/24/20 08:00 36.6 C 72 18 155/92 H 04/24/20 07:27 90 04/24/20 03:45 36.8 C 79 20 132/94 04/23/20 23:30 89 04/23/20 23:00 36.9 C 18 195/87 H Pulse Ox 04/24/20 08:00 96 04/24/20 07:27 04/24/20 03:45 96 04/23/20 23:30 04/23/20 23:00 93 Laboratory Results WBC 9.15 K/uL (4.8-10.8) 04/23/20 18:52 RBC 3.87 M/uL (4.7-6.1) L 04/23/20 18:52 Hgb 11.8 g/dL (14.0-18.0) L 04/23/20 18:52 Hct 36.7 % (42-52) L 04/23/20 18:52 MCV 94.8 fL (80-100) 04/23/20 18:52 MCH 30.5 pg (25-34) 04/23/20 18:52 MCHC 32.2 g/dL (32-36) 04/23/20 18:52 RDW Std Deviation 46.9 fL (36.4-46.3) H 04/23/20 18:52 RDW Coeff of Tono 13.6 % (11.5-14.5) 04/23/20 18:52 Plt Count 198 K/uL (130-400) 04/23/20 18:52 MPV 10.0 fL (7.4-10.4) 04/23/20 18:52 Immature Gran % (Auto) 0.3 % 04/23/20 18:52 Neut % (Auto) 44.9 % 04/23/20 18:52 Lymph % (Auto) 41.0 % 04/23/20 18:52 Gray % (Auto) 12.0 % 04/23/20 18:52 Eos % (Auto) 1.3 % 04/23/20 18:52 Baso % (Auto) 0.5 % 04/23/20 18:52 Neut # (Auto) 4.10 K/uL (1.4-6.5) 04/23/20 18:52 Lymph # (Auto) 3.75 K/uL (1.2-3.4) H 04/23/20 18:52 Gray # (Auto) 1.10 K/uL (0.11-0.59) H 04/23/20 18:52 Eos # (Auto) 0.12 K/uL (0-0.5) 04/23/20 18:52 Baso # (Auto) 0.05 K/uL (0-0.2) 04/23/20 18:52 Immature Gran # (Auto) 0.03 K/uL (0.00-0.02) H 04/23/20 18:52 Sodium 146 mmol/L (136-145) H 04/24/20 06:02 Potassium 3.9 mmol/L (3.5-5.1) 04/24/20 06:02 Chloride 117 mmol/L (98-107) H 04/24/20 06:02 Carbon Dioxide 24 mmol/L (21-32) 04/24/20 06:02 Anion Gap 5.0 (3-11) 04/24/20 06:02 BUN 30 mg/dl (7-18) H 04/24/20 06:02 Creatinine 4.02 mg/dl (0.6-1.4) H 04/24/20 06:02 Est Cr Clr Drug Dosing 18.2 ml/min 04/24/20 06:02 Est GFR ( Amer) 14.7 04/24/20 06:02 Est GFR (Non-Af Amer) 12.7 04/24/20 06:02 BUN/Creatinine Ratio 7.4 (10-20) L 04/24/20 06:02 Glucose 110 mg/dl (70-99) H 04/24/20 06:02 Calcium 8.4 mg/dl (8.5-10.1) L 04/24/20 06:02 Total Bilirubin 0.6 mg/dl (0.2-1) 04/23/20 18:52 AST 34 U/L (15-37) 04/23/20 18:52 ALT 28 U/L (12-78) 04/23/20 18:52 Alkaline Phosphatase 89 U/L (45-117) 04/23/20 18:52 Total Protein 7.7 gm/dl (6.4-8.2) 04/23/20 18:52 Albumin 3.1 gm/dl (3.4-5.0) L 04/23/20 18:52 Globulin 4.6 gm/dl (2.5-4.0) H 04/23/20 18:52 Albumin/Globulin Ratio 0.7 (0.9-2) L 04/23/20 18:52 Lipase 325 U/L (73-393) 04/23/20 18:52 Urine Color Red 04/23/20 22:40 Urine Appearance Clear (Clear) 04/23/20 22:40 Urine pH 7.5 (4.5-7.5) 04/23/20 22:40 Ur Specific [place] 1.020 (1.000-1.030) 04/23/20 22:40 Urine Protein 3+ (Negative) H 04/23/20 22:40 Urine Glucose (UA) Negative (Negative) 04/23/20 22:40 Urine Ketones Negative (Negative) 04/23/20 22:40 Urine Blood 3+ (Negative) H 04/23/20 22:40 Urine Nitrite Negative (Negative) 04/23/20 22:40 Urine Bilirubin Negative (Negative) 04/23/20 22:40 Urine Urobilinogen Negative (Negative) 04/23/20 22:40 Ur Leukocyte Esterase Negative (Negative) 04/23/20 22:40 Urine RBC >30 /hpf (0-4) H 04/23/20 22:40 Urine WBC 10-30 /hpf (0-5) H 04/23/20 22:40 Ur Epithelial Cells 5-10 /lpf (0-5) H 04/23/20 22:40 Urine Bacteria Negative (Negative) 04/23/20 22:40 COVID-19 Eval Order Covid19 IDNow [facility] 04/23/20 19:15 SARS-CoV-2, RNA, NAAT NEGATIVE (NEGATIVE) 04/23/20 19:15 Resident Activity Tracking Resident Involvement: Resident Care Provided Care Provided: Adult Hospital Medicine (1) HTN (hypertension) Hypertension type: unspecified Qualified Code(s): I10 - Essential (primary) hypertension
--- NOTE | 2020-04-24 10:13 | Urology Progress Note ---
Date of Service April 24, 2020 Assessment & Plan (1) Urinary retention: (2) Hematuria, gross: (3) GILMA (acute kidney injury): 84yo M with a hx of TURP procedure in 2017 who was admitted yesterday with GILMA on CKD secondary to obstructive uropathy. -Afebrile -Labs reviewed, Wbc normal and creatinine 4.02 (previous 4.30) -Richard catheter placed yesterday -Urine culture pending -Continue flomax and finasteride -Spoke with hosptial team, ok to hold aspirin for procedure tomorrow -NPO at midnight -Continue supportive care Admission and Anticipated Discharge Date Admission Date: April 23, 2020 Subjective Pt examined at bedside this AM. Awake, resting in bed on arrival. Richard placed yesterday (16Fr coude), draining w/hematuria. Denies any pain or discomfort at this time. Tolerating diet, no nausea or vomiting. No fevers or chills. Denies any dizziness. Eager to go home as he is the primary caregiver of his . Chart review: Afebrile Wbc 9.15 Hgb 11.8 Cr 4.02 (previous 4.30) Richard output overnight- 1750ml Urine culture -pending On flomax and finasteride Review of Systems Constitutional: as per Subjective / HPI Gastrointestinal: as per Subjective / HPI Genitourinary: + as per Subjective / HPI Physical Exam Constitutional: well developed and well nourished; no acute distress Respiratory: normal respiratory effort and able to speak in complete sentences Cardiovascular: Extremities: no calf tenderness and no pedal edema Gastrointestinal (Abdomen): Percussion/Palpation: abdomen soft; abdomen nontender and no guarding Neurologic: moves all extremities and awake; not confused Psychiatric: Orientation: alert, oriented x 3 and cooperative Genitourinary: Richard catheter intact Results & Data ([facility]) Vital Signs (Past 12 Hours) Vital Signs Temp Pulse Pulse Pulse Resp BP BP 04/24/20 08:00 36.6 C 72 18 155/92 H 04/24/20 07:27 90 04/24/20 03:45 36.8 C 79 20 132/94 04/23/20 23:30 89 04/23/20 23:00 36.9 C 18 195/87 H Pulse Ox 04/24/20 08:00 96 04/24/20 07:27 04/24/20 03:45 96 04/23/20 23:30 04/23/20 23:00 93 PG Care Time/CCT Total # of Minutes Spent Total Time Spent with Patient: Total time spent is greater than 50% in coordination of care (as documented) at patient's floor/unit and/or counseling patient: Coding Level of Care Code 02643 Subseq Hosp Care Lvl 2 Diagnoses Urinary retention R33.9 Hematuria, gross R31.0 GILMA (acute kidney injury) N17.9
[2020-04-24 14:14] LABS: Calcium 8.5 mg/dl (8.5-10.1); Est GFR (African American) 14.6; Est GFR (Non-African American) 12.6; Potassium 4.2 mmol/L (3.5-5.1)
--- NOTE | 2020-04-24 16:30 | Anesthesiology Consultation ---
Date of Service April 24, 2020 Assessment & Plan (1) Encounter for pre-operative examination: Chart Review Chart Review: entry level recruiter initiated History Surgery Operation Date: 04/25/20 08:20 Proposed Procedures p Cystoscopy, Clot Evacuation, Possible Fulguration, Possible Resection - Sergo Cota DO Height/Weight Height: 6 ft 4 in Weight: 109 kg Allergies Allergy/AdvReac Type Severity Reaction Status Date / Time No Known Allergies Allergy Verified 04/23/20 19:27 Medications Home Medications Medication Instructions Recorded Confirmed Last Taken multivitamin 1 tab PO QAM 06/03/19 04/23/20 04/23/20 amlodipine 5 mg tablet 2.5 mg PO QPM #30 tab 11/23/19 04/23/20 04/23/20 16:30 aspirin [Aspir-Low] 81 mg PO QPM 02/07/20 04/23/20 04/22/20 20:00 Beet Extract 1 cap PO TID 04/23/20 04/23/20 04/23/20 ? tamsulosin 0.4 mg capsule 0.4 mg PO HS #30 cap 04/23/20 04/23/20 04/23/20 16:00 Active Medications Generic Name Dose Route Start Last Admin Trade Name Freq PRN Reason Stop Dose Admin Amlodipine Besylate 2.5 mg 04/23/20 22:35 04/23/20 23:29 Amlodipine Besylate 5 Mg Tab PO 05/23/20 22:34 Not Given QPM BECKIE Aspirin 81 mg 04/23/20 22:35 04/23/20 23:29 Aspirin 81 Mg Ectab PO 05/23/20 22:34 Not Given QPM BECKIE Finasteride 5 mg 04/24/20 09:00 04/24/20 08:39 Finasteride 5 Mg Tab PO 05/24/20 08:59 5 mg QAM BECKIE Administration Sodium Chloride 1,000 mls @ 125 mls/hr 04/24/20 03:45 04/24/20 12:54 Nss 1000ml IV 05/24/20 03:44 125 mls/hr .Q8H BECKIE Administration Tamsulosin HCl 0.8 mg 04/23/20 22:35 04/23/20 23:29 Tamsulosin Hcl 0.4 Mg Cap PO 05/23/20 22:34 Not Given HS BECKIE Past Medical History Medical History Enlarged prostate MARY'S IGLOO (hard of hearing) Hx of deep venous thrombosis Prostatic hemorrhage Right renal mass Vitamin D deficiency Past Family History Family History Other Family history non-contributory Past Surgical History Surgical History History of prostate surgery Social History Smoking Status: Never smoker tobacco type: smokeless tobacco Do You Dip or Chew Tobacco: Yes (1 bag/2days) Hx Alcohol Use: No Hx Substance Use: No substance use type: does not use Physical Exam Vital Signs Last Vital Signs Temp 98.8 F 04/24/20 11:41 Pulse 76 04/24/20 11:41 Resp 18 04/24/20 11:41 BP 142/79 H 04/24/20 11:41 Pulse Ox 97 04/24/20 11:41 Testing Laboratory Results 04/23/20 18:52 04/24/20 13:31 Urine Color Red 04/23/20 22:40 Urine Appearance Clear (Clear) 04/23/20 22:40 Urine pH 7.5 (4.5-7.5) 04/23/20 22:40 Ur Specific [place] 1.020 (1.000-1.030) 04/23/20 22:40 Urine Protein 3+ (Negative) H 04/23/20 22:40 Urine Glucose (UA) Negative (Negative) 04/23/20 22:40 Urine Ketones Negative (Negative) 04/23/20 22:40 Urine Nitrite Negative (Negative) 04/23/20 22:40 Ur Leukocyte Esterase Negative (Negative) 04/23/20 22:40 Urine RBC >30 /hpf (0-4) H 04/23/20 22:40 Urine WBC 10-30 /hpf (0-5) H 04/23/20 22:40 Ur Epithelial Cells 5-10 /lpf (0-5) H 04/23/20 22:40 Laboratory Tests 04/23/20 19:15 SARS-CoV-2, RNA, NAAT NEGATIVE Electrocardiogram Date: 04/23/20 Atrial fibrillation, rate 92 bpm Right bundle branch block Left anterior fascicular block Bifascicular block Abnormal ECG When compared with ECG of 07-JUN-2019 03:55, Atrial fibrillation has replaced Sinus rhythm T wave inversion more evident in Anterior leads
--- NOTE | 2020-04-24 17:54 | Billing Data ---
Date of Service April 24, 2020 Coding Level of Care Code 67550 Subseq Hosp Care Lvl 3
--- NOTE | 2020-04-24 18:41 | CT Scan Report ---
ABDOMEN AND PELVIS CT WITHOUT CONTRAST CT DOSE: 816.00 mGy.cm HISTORY: Acute hematuria. Follow-up study in a patient with known hydronephrosis Hydronephrosis; Jose Alberto al Mass TECHNIQUE: Multiaxial CT images of the abdomen and pelvis were performed without contrast. A dose lo wering technique was utilized adhering to the principles of ALARA. COMPARISON STUDY: Renal ultrasound 04/23/2020, CT abdomen and pelvis 10/29/2019 FINDINGS: Cardiomegaly. Coronary artery calcifications. Mild bibasilar atelectasis. There is no pneum atosis or pneumoperitoneum. The study is motion degraded. Scattered calcified granulomata of the sple en. Unremarkable pancreas and adrenal glands. The gallbladder is either contracted versus surgically absent. The unenhanced liver is unremarkable. Chronic cortical thinning of the bilateral kidneys, left greater than right. Moderate to severe bilat eral hydroureteronephrosis redemonstrated without obstructing calculus or lesion identified. Bilatera l perinephric stranding. There is a 2.4 x 2.3 cm hypodense lesion involving the lateral aspect of the interpolar right kidney, better characterized on ultrasound study from yesterday. Probable cyst of t he inferior pole left kidney, 1.5 cm. A Richard catheter is noted. Marked urinary bladder wall thickeni ng with perivesicular stranding and edema. Possible intraluminal hemorrhage within the urinary bladde r with marked prostamegaly. Calcified plaque of the aorta without aneurysm. No adenopathy. No bowel obstruction or bowel wall thickening. Advanced colonic diverticulosis. No CT evidence of acu te diverticulitis. Noninflamed appendix. Unremarkable soft tissues. No acute fracture. Degenerative c hanges of the spine, pelvis and hips. IMPRESSION: 1. Moderate to severe bilateral hydroureteronephrosis redemonstrated without obstructing ureteral magi culus or lesion identified. 2. Marked prostamegaly. Richard catheter is in place with marked urinary bladder wall thickening with p erivesicular edema and free fluid. There is air with possible hemorrhage within the urinary bladder l umen. 3. The questioned solid mass of the right kidney is better characterized on the renal ultrasound stud y dated 04/23/2020. 4. No bowel obstruction or bowel wall thickening. 5. Colonic diverticulosis. ACT 112: Negative or not required by law. The above report was generated using voice recognition software. It may contain grammatical, syntax o r spelling errors. Electronically signed by: Thanh Segal M.D. 04/24/2020 6:40 PM
[2020-04-24] MEDS: amLODIPine BESYLATE 5 MG TAB PO SCH (20:05)
[2020-04-24] MEDS: TAMSULOSIN HCL 0.4 MG CAP PO SCH (20:05)
--- NOTE | 2020-04-25 02:06 | Billing Data ---
Date of Service April 25, 2020 Coding Level of Care Code 92854 Initial Inpt Care Lvl 3
[2020-04-25] MEDS: SODIUM CHLORIDE 0.9% 1000ML 1,000 ML IV SCH ×2 (04:09→11:49)
--- NOTE | 2020-04-25 05:52 | Electrocardiogram Report ---
Test Reason : Blood Pressure : / mmHG Vent. Rate : 092 BPM Atrial Rate : 136 BPM P-R Int : 168 ms QRS Dur : 140 ms QT Int : 366 ms P-R-T Axes : 000 -70 -23 degrees QTc Int : 452 ms Sinus rhythm with frequent Premature atrial complexes Right bundle branch block Left anterior fascicular block Bifascicular block Abnormal ECG When compared with ECG of 07-JUN-2019 03:55, No significant change Confirmed by Abel Coppola ([id number]) on 04/25/2020 5:51:51 AM Referred By: González Gibbs Confirmed By:Abel Coppola
[2020-04-25 06:21] LABS: Basophils # (auto) 0.02 K/uL (0-0.2); Basophils % (auto) 0.2 %; Eosinophils # (auto) 0.19 K/uL (0-0.5); Eosinophils % (auto) 2.1 %; Hematocrit (blood only) 33.7 % (42-52); Hemoglobin 10.9 g/dL (14.0-18.0); Immature Granulocytes # (auto) 0.01 K/uL (0.00-0.02); Immature Granulocytes % (auto) 0.1 %; Lymphocytes % (auto) 34.1 %; Mean Corpuscular Hemoglobin 30.6 pg (25-34); Mean Corpuscular Hgb Conc 32.3 g/dL (32-36); Mean Corpuscular Volume 94.7 fL (80-100); Mean Platelet Volume 10.3 fL (7.4-10.4); Monocytes # (auto) 1.01 K/uL (0.11-0.59); Monocytes % (auto) 11.1 %; Neutrophils # (auto) 4.75 K/uL (1.4-6.5); Neutrophils % (auto) 52.4 %; Platelet Count 182 K/uL (130-400); RDW Coefficient of Variation 13.3 % (11.5-14.5); RDW Standard Deviation 46.1 fL (36.4-46.3); Red Blood Count 3.56 M/uL (4.7-6.1); White Blood Count 9.08 K/uL (4.8-10.8)
[2020-04-25 06:40] LABS: BUN Creatinine Ratio 7.4 (10-20); Calcium 7.9 mg/dl (8.5-10.1); Creatinine Clr Calc Pharmacy 17.2 ml/min; Est GFR (African American) 15.5; Est GFR (Non-African American) 13.4; Potassium 4.1 mmol/L (3.5-5.1)
--- NOTE | 2020-04-25 07:46 | Urology Progress Note ---
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 -Reviewed plan of care with Dr. Cota -Plan for OR today for Cystoscopy, Clot Evacuation, possible Fulguration, possible Resection -Risks and benefits to be reviewed with patient by Dr. Cota. -Patient agreeable to plan, all questions were answered. -Will cover with IV antibiotics preoperatively. Attending Note: agree with above. Independantly evaluated and assessed and examined and agree with findings. Risks and benefits discussed at length for procedure. These include bleeding, infection, injury to surrounding tissues or organs, and risks associated with anesthesia. Patient states understanding and agrees to proceed. Will sign consent and proceed. Cystoscopy possible evacuation, fulguration, resection. Admission and Anticipated Discharge Date Admission Date: April 23, 2020 Subjective Pt examined at bedside this AM. Awake, resting in bed on arrival. Denies any pain or discomfort. No fevers or chills. No nausea/vomiting. Has been NPO for procedure today. Richard catheter intact, draining w/hematuria. Chart review: Afebrile Wbc 9.08 Hgb 10.9 Cr 3.85 Review of Systems Constitutional: as per Subjective / HPI Gastrointestinal: as per Subjective / HPI Genitourinary: + as per Subjective / HPI Physical Exam Constitutional: well developed and well nourished; no acute distress Respiratory: normal respiratory effort and able to speak in complete sentences Cardiovascular: Extremities: no calf tenderness Gastrointestinal (Abdomen): Percussion/Palpation: abdomen soft; abdomen nontender and no guarding Skin: no rashes, warm and dry Neurologic: moves all extremities and awake; not confused Psychiatric: Orientation: alert, oriented x 3 and cooperative Genitourinary: Richard catheter intact Results & Data ([facility]) Vital Signs (Past 12 Hours) Vital Signs Temp Pulse Pulse Resp BP Pulse Ox 04/25/20 07:39 36.8 C 86 18 135/81 93 04/25/20 07:08 86 04/25/20 04:22 36.8 C 81 17 125/69 93 04/24/20 23:37 37.1 C 86 17 162/87 H 91 04/24/20 23:05 88 04/24/20 20:16 37.2 C 76 20 157/67 H 96 PG Care Time/CCT Total # of Minutes Spent Total Time Spent with Patient: Total time spent is greater than 50% in coordination of care (as documented) at patient's floor/unit and/or counseling patient: Coding Level of Care Code 24721 Subseq Hosp Care Lvl 2 Diagnoses GILMA (acute kidney injury) N17.9 Hematuria, gross R31.0 Acute retention of urine R33.8
[2020-04-25] MEDS ORDERED: LIDOCAINE HCL 2% 2 ML VIAL/AMP(20MG/ML) INFIL ONE (07:47)
[2020-04-25] MEDS ORDERED: PROPOFOL IV EMULSION 10 MG/ML 20 ML VIAL IV ONE ×4 (07:47→09:20)
[2020-04-25] MEDS ORDERED: ceFAZolin 2000MG 2,000 MG/15 ML SYR IV ONE ×2 (07:53→08:11)
[2020-04-25] MEDS ORDERED: ONDANSETRON INJ 2 MG/ML 2 ML VIAL IV PRN (08:09)
[2020-04-25] MEDS ORDERED: fentaNYL citrate 100 MCG/2 ML VIAL IV PRN (08:09)
[2020-04-25] MEDS ORDERED: ATROPINE SULFATE 0.1 MG/ML 10ML SYR IV PRN (08:09)
[2020-04-25] MEDS ORDERED: ePHEDrine sulfate 50 MG/ML AMP IV PRN (08:09)
[2020-04-25] MEDS ORDERED: fentaNYL citrate 100 MCG/2 ML VIAL ONE (08:18)
[2020-04-25] MEDS ORDERED: ONDANSETRON INJ 2 MG/ML 2 ML VIAL ONE (08:41)
[2020-04-25] MEDS ORDERED: PHENYLEPHRINE 100MCG/ML 5ML SYR ONE (09:29)
--- NOTE | 2020-04-25 10:27 | Operative Report ---
PG Post Operative Report Pre & Post Diagnosis Operation Date: 04/25/20 08:20 Pre-Op Diagnosis: Gross Hematuria Urinary Retention Post Same I identified the patient and participated in the time-out.: Yes Procedure Operation Date: 04/25/20 08:20 Actual Procedures p Cystoscopy, Clot Evacuation, Transurethral Resection of prostate - Sergo Cota DO Surgeon Sergo Cota, II, DO Machine Hand None Estimated Blood Loss 15 Findings Consistent with Post-Op Diagnosis Extreme Large Prostate with fusion of lateral lobes and traumatic insertion and injury to left lateral lobe of prostate. Appeared that catheter had penetrated between the obstructed/fused lobes. Severe obstruction with severe cystitis throughout bladder. Very large prostatic varicosity at bladder neck and distal prostatic urethra. . Specimens Prostate adenoma. Drains 26Fr [address] Catheter Anesthesia Type General Complications none Disposition Disposition: Recovery Room Indications Patient with gross hematuria and obstruction due to prostate enlargement. Risks and benefits discussed at length. Description of Procedure Patient was consented and brought back to the operating room. Patient was placed under anesthesia in the supine position and moved to the dorsal lithotomy position. Patient was prepped and draped in the regular sterile fashion. A time out was completed. A 30degree Cystoscope was placed into the bladder and the entire bladder was examined. The UO's were identified as well as the bladder neck, trigone, dome, and the other important landmarks. The prostatic urethra and large lobes/adenoma was assessed and the veru and bladder neck identified and area/size was assessed. The prostatic urethra had near complete fusion of la teral lobes. The normal channel following the median lobe was too narrow to transverse. It appeared that the catheter had penetrated the dorsal edges of the lateral lobes and split the fused area causing tearing and bleeding of especially the left lateral lobe. This was able to be maneuvered through with manipulation. Clot was evacuated from the bladder. The resection scope was placed and the fine bipolar loop was selected. Starting at the 5 and 7 o'clock positions, a channel was created from bladder neck to the veru. This split the fused lateral lobes. Extremely large varicosity was fulgurated through the process. With a ventral channel created, the lateral lobe on the left and then the right was resected down to capsule. An extremely large amount of tissue was resected. The Specimen was removed and sent for analysis. The resection bed and any bleeding areas were fulgurated/cauterized and the entire area inspected. All bleeding was controlled. The bladder was inspected a final time. Severe inflammation and irritation was noted through the bladder. No major bleeding or ulceration. The bladder was emptied and irrigated. All specimen and debris was removed. The scope was removed with the bladder partially full. A catheter was placed and balloon elevated. This was easily irrigated. This was connected to continuous irrigation. The patient was cleaned, aroused from anesthesia, and transferred to the pacu in stable condition having tolerated the procedure well with no complications. I was present and participated in all aspects of the procedure. The patient will be monitored in the PACU until transferred. I attest to the content of the Intraoperative Record and any orders documented therein. Any exceptions are noted below.
--- NOTE | 2020-04-25 10:54 | Hospitalist Progress Note ---
Date of Service April 25, 2020 Assessment & Plan (1) GILMA (acute kidney injury): Mr. 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 GILMA on CKD IV - baseline Cr 2.5 (in 10/2019). Cr down to 3.78 - s/p cystoscopy and bladder irrigation and transurethral prostatectomy - suspect obstruction given hx stricture requiring OR grullon placement vs. new renal mass impeding function - renal US showing 2.8 cm R renal mass, will consider order f/u MRI. CT A/P w/o contrast unable to characterize mass well. - flomax, - appreciate urology's continuing recommendations post op - fluid management: NS @125, strict I/O - daily BMP HTN - continue amlodipine 2.5 mg - holding lisinopril in setting of GILMA New Cardiac Arrhythmia - EKG atrial bigeminy with RBBB - appeared to convert spontaneously on teletypesetter monitor - rate controlled at this time Chronic Anemia - hgb 11.8 on admission. stable at 10.5 - likely secondary to CKD IV, hematuria - MCV 94 - vitamin B12 level 402, folate >20 - iron level 38, Ferritin 122, transferrin 195 - patient was on a home oral iron supplement in the past but was reportedly told to discontinue Dispo: Med/Surg with tele. 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 - Urine culture pending - patient afebrile, without flank pain - WBC normal - will hold off on antibiotics at this time. Follow culture - after grullon cath is placed, we will order IVF. Repeat UA at this time. (4) HTN (hypertension): - patient with history of HTN - previously had been on both lisinopril and amlodipine in the past - they were discontinued for a period of time. At his PCP visit today, he was directed to resume lisinopril, 5mg,daily. - will hold WICHO inhibitor in the setting of acute UTI. - Recommend he resume amlodipine 2.5mg, PO daily (5) Right renal mass: (6) Cardiac arrhythmia: - no history of arrhythmia - EKG on admission showing Afib vs. atrial bigeminy. official read pending. - appeared to convert spontaneously on teletypesetter monitor - rate controlled at this time - if rate increases, would recommend switching from amlodipine to Cardizem (for inotropic effects). - [id number] score of 3, making him a moderate to high risk candidate - assess for hematuria (clots) after grullon is placed; if there are many recomme nd holding off on anticoag. But if few/none and patient appears to be going in and out of Afib, would start on DOAC. (7) Anemia: - hgb 11.8 on admission - MCV 94 - vitamin B12 level 402, folate >20 - iron level 38, Ferritin 122, transferrin 195 - patient was on a home oral iron supplement in the past but was reportedly told to discontinue Dispo: Med/Surg with tele. Diet: NPO in anticipation of possible procedure DVT ppx: SCDs, will hold on chemo in event of possible procedure Code: Full, I discussed with patient Admission and Anticipated Discharge Date Admission Date: April 23, 2020 Supervising Physician Co-Signing Physician Notes I personally examined the patient and verified all allen points of history and exam, discussed case, and agree with decision making with Dr Zeng seen almost immediately post procedure. grullon appears patent, no complaints vitals noted nad heent nc at mmm breathing unlabored no accessory muscles good effort skin no rashes no pallor or icterus neuro no focal deficits GILMA on CKD4 - worrisome that he may have also ongoing progression of baseline creatinine given his creatinine readings over the last year. certainly alleviating the obstruction did cause some improvement - now post op hopefully obstruction more definitively resolved. otherwise as above Subjective seen after returning from OR for cystoscopy and transurethral prostatectomy. no complaints. no complications from surgery. Review of Systems Constitutional: no fever, no chills, no body aches and no fatigue Respiratory: no cough and no dyspnea Cardiovascular: no chest pain, no dyspnea and no edema Gastrointestinal: no abdominal pain, no nausea, no vomiting, no constipation and no diarrhea/loose stools Physical Exam Physical Exam: Constitutional: obese, in no apparent distress, sitting comfortably in bed. Cardiac: RRR, no murmurs, gallops or rubs. Normal S1, S2 Pulm: CTA BL, no wheezes, rhonchi, crackles or rubs, moving air well throughout both lungs : grullon in place with pressure hydration bags attached, draining strawberry pink urine Results & Data Results & Data ([facility]) Vital Signs (Past 12 Hours) Vital Signs Temp Pulse Pulse Pulse Resp BP Pulse Ox 04/25/20 10:45 64 17 144/85 H 100 04/25/20 10:36 36.2 C L 68 19 154/78 H 100 04/25/20 08:08 37.6 C H 04/25/20 07:59 90 20 115/76 96 04/25/20 07:39 36.8 C 86 18 135/81 93 04/25/20 07:08 86 04/25/20 04:22 36.8 C 81 17 125/69 93 04/24/20 23:37 37.1 C 86 17 162/87 H 91 04/24/20 23:05 88 Laboratory Results WBC 9.25 K/uL (4.8-10.8) 04/25/20 11:44 RBC 3.42 M/uL (4.7-6.1) L 04/25/20 11:44 Hgb 10.5 g/dL (14.0-18.0) L 04/25/20 11:44 Hct 33.6 % (42-52) L 04/25/20 11:44 MCV 98.2 fL (80-100) 04/25/20 11:44 MCH 30.7 pg (25-34) 04/25/20 11:44 MCHC 31.3 g/dL (32-36) L 04/25/20 11:44 RDW Std Deviation 47.8 fL (36.4-46.3) H 04/25/20 11:44 RDW Coeff of Tono 13.6 % (11.5-14.5) 04/25/20 11:44 Plt Count 182 K/uL (130-400) 04/25/20 11:44 MPV 10.5 fL (7.4-10.4) H 04/25/20 11:44 Immature Gran % (Auto) 0.1 % 04/25/20 11:44 Neut % (Auto) 52.1 % 04/25/20 11:44 Lymph % (Auto) 35.7 % 04/25/20 11:44 [place] % (Auto) 10.4 % 04/25/20 11:44 Eos % (Auto) 1.4 % 04/25/20 11:44 Baso % (Auto) 0.3 % 04/25/20 11:44 Neut # (Auto) 4.82 K/uL (1.4-6.5) 04/25/20 11:44 Lymph # (Auto) 3.30 K/uL (1.2-3.4) 04/25/20 11:44 [place] # (Auto) 0.96 K/uL (0.11-0.59) H 04/25/20 11:44 Eos # (Auto) 0.13 K/uL (0-0.5) 04/25/20 11:44 Baso # (Auto) 0.03 K/uL (0-0.2) 04/25/20 11:44 Immature Gran # (Auto) 0.01 K/uL (0.00-0.02) 04/25/20 11:44 Sodium 146 mmol/L (136-145) H 04/25/20 11:44 Potassium 4.4 mmol/L (3.5-5.1) 04/25/20 11:44 Chloride 121 mmol/L (98-107) H 04/25/20 11:44 Carbon Dioxide 20 mmol/L (21-32) L 04/25/20 11:44 Anion Gap 5.0 (3-11) 04/25/20 11:44 BUN 28 mg/dl (7-18) H 04/25/20 11:44 Creatinine 3.78 mg/dl (0.6-1.4) H 04/25/20 11:44 Est Cr Clr Drug Dosing 17.5 ml/min 04/25/20 11:44 Est GFR ( Amer) 15.9 04/25/20 11:44 Est GFR (Non-Af Amer) 13.7 04/25/20 11:44 BUN/Creatinine Ratio 7.4 (10-20) L 04/25/20 11:44 Glucose 110 mg/dl (70-99) H 04/25/20 11:44 Calcium 7.5 mg/dl (8.5-10.1) L 04/25/20 11:44 Total Bilirubin 0.6 mg/dl (0.2-1) 04/23/20 18:52 AST 34 U/L (15-37) 04/23/20 18:52 ALT 28 U/L (12-78) 04/23/20 18:52 Alkaline Phosphatase 89 U/L (45-117) 04/23/20 18:52 Total Protein 7.7 gm/dl (6.4-8.2) 04/23/20 18:52 Albumin 3.1 gm/dl (3.4-5.0) L 04/23/20 18:52 Globulin 4.6 gm/dl (2.5-4.0) H 04/23/20 18:52 Albumin/Globulin Ratio 0.7 (0.9-2) L 04/23/20 18:52 Lipase 325 U/L (73-393) 04/23/20 18:52 Urine Color Red 04/23/20 22:40 Urine Appearance Clear (Clear) 04/23/20 22:40 Urine pH 7.5 (4.5-7.5) 04/23/20 22:40 Ur Specific [place] 1.020 (1.000-1.030) 04/23/20 22:40 Urine Protein 3+ (Negative) H 04/23/20 22:40 Urine Glucose (UA) Negative (Negative) 04/23/20 22:40 Urine Ketones Negative (Negative) 04/23/20 22:40 Urine Blood 3+ (Negative) H 04/23/20 22:40 Urine Nitrite Negative (Negative) 04/23/20 22:40 Urine Bilirubin Negative (Negative) 04/23/20 22:40 Urine Urobilinogen Negative (Negative) 04/23/20 22:40 Ur Leukocyte Esterase Negative (Negative) 04/23/20 22:40 Urine RBC >30 /hpf (0-4) H 04/23/20 22:40 Urine WBC 10-30 /hpf (0-5) H 04/23/20 22:40 Ur Epithelial Cells 5-10 /lpf (0-5) H 04/23/20 22:40 Urine Bacteria Negative (Negative) 04/23/20 22:40 COVID-19 Eval Order Covid19 [facility] 04/23/20 19:15 SARS-CoV-2, RNA, NAAT NEGATIVE (NEGATIVE) 04/23/20 19:15 Resident Activity Tracking Resident Involvement: Resident Care Provided Care Provided: Adult Hospital Medicine (1) HTN (hypertension) Hypertension type: unspecified Qualified Code(s): I10 - Essential (primary) hypertension
--- NOTE | 2020-04-25 11:04 | Anesthesiology Progress Note ---
Date of Service April 25, 2020 Anesthesia Post Procedure Vital Signs Vital Signs: Temp Pulse Pulse Pulse Resp BP Pulse Ox 04/25/20 10:45 64 17 144/85 H 100 04/25/20 10:36 36.2 C L 68 19 154/78 H 100 04/25/20 08:08 37.6 C H 04/25/20 07:59 90 20 115/76 96 04/25/20 07:39 36.8 C 86 18 135/81 93 04/25/20 07:08 86 04/25/20 04:22 36.8 C 81 17 125/69 93 04/24/20 23:37 37.1 C 86 17 162/87 H 91 04/24/20 23:05 88 04/24/20 20:16 37.2 C 76 20 157/67 H 96 04/24/20 17:05 36.8 C 81 20 180/90 H 96 04/24/20 14:20 83 04/24/20 11:41 37.1 C 76 18 142/79 H 97 Transfer of Care Handoff Completed per policy Notes Mental Status: alert / awake / arousable and participated in evaluation Nausea / Vomiting: adequately controlled Pain: adequately controlled Airway Patency, RR, SpO2: stable & adequate BP & HR: stable & adequate Hydration State: stable & adequate Anesthetic Complications: no major complications apparent and Pt Satisfied with anesthetic care Notes: Back to preoperative baseline.
[2020-04-25] MEDS: FINASTERIDE 5 MG TAB PO SCH (11:46)
[2020-04-25 12:13] LABS: Basophils # (auto) 0.03 K/uL (0-0.2); Basophils % (auto) 0.3 %; Eosinophils # (auto) 0.13 K/uL (0-0.5); Eosinophils % (auto) 1.4 %; Hematocrit (blood only) 33.6 % (42-52); Hemoglobin 10.5 g/dL (14.0-18.0); Immature Granulocytes # (auto) 0.01 K/uL (0.00-0.02); Immature Granulocytes % (auto) 0.1 %; Lymphocytes % (auto) 35.7 %; Mean Corpuscular Hemoglobin 30.7 pg (25-34); Mean Corpuscular Hgb Conc 31.3 g/dL (32-36); Mean Corpuscular Volume 98.2 fL (80-100); Mean Platelet Volume 10.5 fL (7.4-10.4); Monocytes # (auto) 0.96 K/uL (0.11-0.59); Monocytes % (auto) 10.4 %; Neutrophils # (auto) 4.82 K/uL (1.4-6.5); Neutrophils % (auto) 52.1 %; Platelet Count 182 K/uL (130-400); RDW Coefficient of Variation 13.6 % (11.5-14.5); RDW Standard Deviation 47.8 fL (36.4-46.3); Red Blood Count 3.42 M/uL (4.7-6.1); White Blood Count 9.25 K/uL (4.8-10.8)
[2020-04-25 12:50] LABS: BUN Creatinine Ratio 7.4 (10-20); Calcium 7.5 mg/dl (8.5-10.1); Creatinine Clr Calc Pharmacy 17.5 ml/min; Est GFR (African American) 15.9; Est GFR (Non-African American) 13.7; Potassium 4.4 mmol/L (3.5-5.1)
[2020-04-25] MEDS: ceFAZolin 2000MG 2,000 MG/15 ML SYR IV SCH (15:51)
--- NOTE | 2020-04-25 17:14 | Billing Data ---
Date of Service April 25, 2020 Coding Level of Care Code 23502 Subseq Hosp Care Lvl 2
[2020-04-25] MEDS: LACTATED RINGER'S 1,000 ML IV SCH (18:21)
[2020-04-25] MEDS: amLODIPine BESYLATE 5 MG TAB PO SCH (20:31)
[2020-04-25] MEDS: TAMSULOSIN HCL 0.4 MG CAP PO SCH (20:31)
[2020-04-26] MEDS: ceFAZolin 2000MG 2,000 MG/15 ML SYR IV SCH ×2 (00:29→08:01)
[2020-04-26] MEDS: LACTATED RINGER'S 1,000 ML IV SCH ×3 (02:15→16:34)
[2020-04-26 06:48] LABS: Basophils # (auto) 0.03 K/uL (0-0.2); Basophils % (auto) 0.3 %; Eosinophils # (auto) 0.26 K/uL (0-0.5); Eosinophils % (auto) 2.6 %; Hematocrit (blood only) 28.5 % (42-52); Immature Granulocytes # (auto) 0.01 K/uL (0.00-0.02); Immature Granulocytes % (auto) 0.1 %; Lymphocytes # (auto) 2.45 K/uL (1.2-3.4); Lymphocytes % (auto) 24.3 %; Mean Corpuscular Hemoglobin 30.1 pg (25-34); Mean Corpuscular Hgb Conc 31.6 g/dL (32-36); Mean Corpuscular Volume 95.3 fL (80-100); Mean Platelet Volume 10.4 fL (7.4-10.4); Monocytes # (auto) 1.13 K/uL (0.11-0.59); Monocytes % (auto) 11.2 %; Neutrophils % (auto) 61.5 %; Platelet Count 174 K/uL (130-400); RDW Coefficient of Variation 13.5 % (11.5-14.5); RDW Standard Deviation 46.9 fL (36.4-46.3); Red Blood Count 2.99 M/uL (4.7-6.1); White Blood Count 10.08 K/uL (4.8-10.8)
[2020-04-26 07:24] LABS: BUN Creatinine Ratio 7.3 (10-20); Calcium 7.6 mg/dl (8.5-10.1); Est GFR (African American) 16.4; Est GFR (Non-African American) 14.1; Potassium 4.1 mmol/L (3.5-5.1)
[2020-04-26] MEDS: FINASTERIDE 5 MG TAB PO SCH (08:00)
--- NOTE | 2020-04-26 09:00 | Hospitalist Progress Note ---
Date of Service April 26, 2020 Assessment & Plan (1) GILMA (acute kidney injury): Mr. 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 GILMA on CKD IV - baseline Cr 2.5 (in 10/2019). Cr continues to slowly downtrend, 3.68 today. - s/p cystoscopy and bladder irrigation and transurethral prostatectomy - suspect obstruction given hx stricture requiring OR grullon placement vs. new renal mass impeding function TURP as below - renal US showing 2.8 cm R renal mass, will consider order f/u MRI. CT A/P w/o contrast unable to characterize mass well. - fluid management: NS @125, strict I/O - daily BMP TURP 2/2 lower urinary tract symptoms 2/2 prostate enlargement/hematuria TURP performed by Dr. Cota on 04/25/2020 Uncomplicated. Noted to catheter penetration between obstructed fused lobes of the prostate with a large prostatic varicosity at the bladder neck. Patient placed on postop continuous irrigation Patient placed on perioperative prophylactic cefazolin 2 g every 8 hours Continue tamsulosin, finasteride - Seen by Urology. Attempt to titrate CBI to clear and off today. Continue grullon for 10-14 days with Urology followup, continue ppx abx while in place 7-10 days per Uro. - If Cr improves and CBI is transitioned off may be OK for d/c home today/tomorrow per Uro. Anticipate discharge tomorrow. Renal mass Renal ultrasound shows 2.8 cm right renal mass Follow-up MRI as outpatient if clinically improving and stable for discharge HTN - continue amlodipine 2.5 mg - holding lisinopril in setting of GILMA New Cardiac Arrhythmia - EKG atrial bigeminy with RBBB - appeared to convert spontaneously on strategic account director - rate controlled at this time Chronic Anemia - hgb 11.8 on admission. Postoperative decreased to 9.0. Trend daily. - likely secondary to CKD IV, hematuria - MCV 94 - vitamin B12 level 402, folate >20 - iron level 38, Ferritin 122, transferrin 195 Dispo: Med/Surg with tele. Diet: low salt diet DVT ppx: SCDs, holding chemo given hematuria Code: Full Admission and Anticipated Discharge Date Admission Date: April 23, 2020 Supervising Physician Co-Signing Physician Notes I personally examined the patient and verified all allen points of history and exam, discussed case, and agree with decision making with Dr Gunter feeling ok - pleased w progress. no clots. urology input appreciated vitals noted nad heent nc at mmm breathing unlabored no accessory muscles good effort skin no rashes no pallor or icterus neuro no focal deficits red urine in grullon bag but no clots GILMA on CKD4 - worrisome that he may have also ongoing progression of baseline creatinine given his creatinine readings over the last year. certainly alleviating the obstruction did cause some improvement - now post op hopefully obstruction more definitively resolved. irrigation to clear bleeding, abx, ongoing f/u of creatinine. hopefully home soon. otherwise as above Subjective Mr. Reed is seen at the bedside today. He is eating breakfast at time of assessment. He reports that he feels well and is not in any pain. He denies chest pain, shortness of breath, difficulty breathing, fever, chills, and abdominal pain. He reports he would like to go home soon as possible, but understands he may need to stay till tomorrow and has no other questions or concerns at time of assessment. Review of Systems Review of Systems: Constitutional: Denies fever, chills Eyes: Denies vision change ENT: Denies ear pain Cardiovascular: Denies Chest pain, chest pressure, palpitations Respiratory: Denies shortness of breath, cough, sputum production, difficulty breathing Gastrointestinal: Denies abdominal pain, nausea, vomiting, constipation, diarrhea Genitourinary: Grullon in place. Denies urinary pain, dysuria Musculoskeletal: Denies weakness, muscle aches/pain, joint aches/pain Integumentary:Denies acute rash, lesions, bruising Neurological: Denies acute headache, numbness, tingling, focal weakness Physical Exam Physical Exam: General: A&Ox3. NAD. Cooperative. HEENT: Atraumatic, normocephalic. Pulm: CTAB A&P. -wheezes, -rales, -rhonchi. Symmetrical chest rise. No increase work of breathing. No respiratory distress. Cardiac: RRR, -mrg. Radial pulses intact and symmetrical. Abdominal: Nontender, nondistended, soft. BS present. : Grullon in place, draining pink/light red urine. Results & Data Results & Data ([facility]) Vital Signs (Past 12 Hours) Vital Signs Temp Pulse Pulse Pulse Resp BP Pulse Ox 04/26/20 07:31 37.3 C 76 18 117/70 96 04/26/20 03:00 37.3 C 92 H 19 117/66 93 04/26/20 01:33 92 H 04/25/20 22:33 37.2 C 101 H 20 139/75 94 Resident Activity Tracking Resident Involvement: Resident Care Provided Care Provided: Pediatric Care
--- NOTE | 2020-04-26 09:14 | Urology Progress Note ---
Date of Service April 26, 2020 Assessment & Plan (1) Hematuria, gross: Patient underwent transurethral resection of massive prostate which had considerable bleeding from large prostatic varicosities as well as tearing of tissue from fusion of lateral lobes. Extremely large burden of prostate removed and resected. Patient is on CBI with a 26 [place] catheter. Is tolerating well. Creatinine has improved slightly. Patient is the primary caregiver for his and is anxious to get home. We will try to titrate CBI to clear and then off later today. Will need catheter for likely 10 to 14 days. Can follow-up as outpatient in the office. If creatinine continues to improve likely can be discharged home. Had considerable irritation and inflammation of the bladder. Will likely need antibiotics while catheter is in place. Likely 7 to 10 days of antibiotics. Patient otherwise increasing activity. Is tolerating diet. We will plan for outpatient follow-up with catheter removal and discussion of pathology Admission and Anticipated Discharge Date Admission Date: April 23, 2020 Subjective Postop from cystoscopy clot evacuation and transurethral resection of prostate for obstruction issues. Patient has been tolerating well. Has noticed some frequency and urgency. Has not had severe pain in the back and flank. Does have occasional burning and irritation. No severe episodes or major changes. No new nausea or vomiting. Had tolerated anesthesia without major problems. CBI is running without considerable issues. Patient's hemoglobin had a mild drop which would be expected. Pressure in pelvis and groin going in waves. Creatinine has slowly improved. Review of Systems Review of Systems: All systems reviewed & are unremarkable except as noted in HPI & below Physical Exam Physical Exam: General: Alert in no acute distress. HEENT: Normocephalic Atraumatic. Inspection normal. Cranial Nerves 2-12 Grossly intact. Normal inspection of face. Normal inspection of neck. Psychologic: Normal affect. Respiratory: Nonlabored. No use of accessory muscles. No tachypnea or dyspnea. Cardiovascular: No tachycardia Skin: [place] and Dry. No rashes or visible lesions. Extremities/Lymphatics: No edema Abdomen: Soft Non-distended. No rebound or guarding. : Richard in place with CBI draining clear urine Results & Data ([facility]) Vital Signs (Past 12 Hours) Vital Signs Temp Pulse Pulse Pulse Resp BP Pulse Ox 04/26/20 07:31 37.3 C 76 18 117/70 96 04/26/20 03:00 37.3 C 92 H 19 117/66 93 04/26/20 01:33 92 H 04/25/20 22:33 37.2 C 101 H 20 139/75 94 PG Care Time/CCT Total # of Minutes Spent Total Time Spent with Patient: Total time spent is greater than 50% in coordination of care (as documented) at patient's floor/unit and/or counseling patient: Coding Level of Care Code 35066 Subseq Hosp Care Lvl 3 Diagnoses Hematuria, gross R31.0
--- NOTE | 2020-04-26 13:40 | Billing Data ---
Date of Service April 26, 2020 Coding Level of Care Code 31977 Subseq Hosp Care Lvl 2
[2020-04-26 15:11] LABS: Creatinine Clr Calc Pharmacy 17.8 ml/min; Est GFR (African American) 16.1; Est GFR (Non-African American) 13.9
[2020-04-26] MEDS: ceFAZolin 1000MG 1,000 MG/7.5 ML SYR IV SCH (15:26)
[2020-04-26] MEDS: TAMSULOSIN HCL 0.4 MG CAP PO SCH (20:24)
[2020-04-26] MEDS: amLODIPine BESYLATE 5 MG TAB PO SCH (20:24)
[2020-04-27] MEDS: LACTATED RINGER'S 1,000 ML IV SCH (00:48)
[2020-04-27] MEDS: ceFAZolin 1000MG 1,000 MG/7.5 ML SYR IV SCH (03:58)
[2020-04-27 07:09] LABS: Basophils # (auto) 0.03 K/uL (0-0.2); Basophils % (auto) 0.4 %; Eosinophils # (auto) 0.38 K/uL (0-0.5); Eosinophils % (auto) 4.4 %; Hematocrit (blood only) 26.7 % (42-52); Hemoglobin 8.5 g/dL (14.0-18.0); Immature Granulocytes # (auto) 0.02 K/uL (0.00-0.02); Immature Granulocytes % (auto) 0.2 %; Lymphocytes # (auto) 2.63 K/uL (1.2-3.4); Lymphocytes % (auto) 30.7 %; Mean Corpuscular Hemoglobin 29.9 pg (25-34); Mean Corpuscular Hgb Conc 31.8 g/dL (32-36); Mean Platelet Volume 10.2 fL (7.4-10.4); Monocytes # (auto) 1.14 K/uL (0.11-0.59); Monocytes % (auto) 13.3 %; Neutrophils # (auto) 4.37 K/uL (1.4-6.5); Platelet Count 150 K/uL (130-400); RDW Coefficient of Variation 13.3 % (11.5-14.5); RDW Standard Deviation 46.1 fL (36.4-46.3); Red Blood Count 2.84 M/uL (4.7-6.1); White Blood Count 8.57 K/uL (4.8-10.8)
[2020-04-27 07:52] LABS: BUN Creatinine Ratio 7.8 (10-20); Calcium 8.4 mg/dl (8.5-10.1); Creatinine Clr Calc Pharmacy 19.2 ml/min; Est GFR (African American) 17.7; Est GFR (Non-African American) 15.2; Potassium 3.8 mmol/L (3.5-5.1)
[2020-04-27] MEDS: FINASTERIDE 5 MG TAB PO SCH (08:17)
--- NOTE | 2020-04-27 09:23 | Discharge Summary ---
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 Mr. Reed presented to his PCP for a routine chronic disease follow up - he did not have any new concerns. He was contacted by his providers office after he returned home when his serum creatinine returned at 4.33. Mr. Reed has been seen by [facility] in the past, but tends to get lost to follow up for periods of time. Of note, he was seen in the ED in November, at which time he was experiencing hematuria and urinary hesitancy. Dr. Cota of urology saw the patient in the ER at the time for assistance with catheter placement, but was unable to pass the bulbar urethra even with multiple different catheter sizes. Dr. Cota ended up taking him to the OR for emergent catheter placement to relieve his obstruction. He had a telehealth visit with Dr. Cota in 12/2019 and was directed to come to the office for a cystoscopy - this procedure was reportedly scheduled but Mr. Reed never had it done. He also reportedly stopped his flomax, although it is unclear why or who told him to do so. Today, Mr. Reed reports he is feel well, at his baseline. He reports urinary frequency (having to go every 10-15 min), but producing only a small volume with each void. He reports difficulty with initiating stream and dribbling at the end. These symptoms are chronic for him - he denies any acute worsening. No personal or family history of malignancy. Non-smoker. In the ED, his WBC was normal. Hgb 11.8, MCV 94. UA 2+ LE, > 30 WBCs, - nitrite, - bacteria. Urine culture pending. Cr 4.3. Bun 35. Electrolytes WNL. Lipase 325. COVID 19 neg. EKG read with atrial fibrillation, however on my read it appears to have P-waves. Renal US showing ordered. Grullon catheter placement was attempted in ED but unsuccessful. ED provider paged Urology to ED to attempt placement. Admission Exam Per Admitting Provider Constitutional: WD/WN, vitals as above cooperative; no acute distress Eyes: + anicteric sclerae ENMT: external ear and nose normal, oropharynx normal Ears: + hearing impairment Neck: normal visual inspection and trachea midline Respiratory: normal respiratory effort, lungs clear to auscultation Auscultation: + wheezes (on expiraton); no crackles and no rales Cardiovascular: Rate/Rhythm: regular rate and + irregularly irregular Heart Sounds: normal S1 and normal S2 Extremities: + pedal edema (trace, b/l) Gastrointestinal (Abdomen): Inspection/Auscultation: + abdomen distended and normal bowel sounds Percussion/Palpation: abdomen soft; abdomen nontender and no guarding Skin: no rashes, warm and dry Neurologic: moves all extremities Genitourinary: + bladder abnormality (distention ) and + phimosis; no CVA tenderness Principal Diagnosis GILMA 2/2 LUTS Discharge Exam General: A&Ox3. NAD. Cooperative. HEENT: Atraumatic, normocephalic. Hard of Hearing. Pulm: CTAB A&P. -wheezes, -rales, -rhonchi. Symmetrical chest rise. No increase work of breathing. No respiratory distress. Cardiac: RRR, -mrg. Radial pulses intact and symmetrical. Abdominal: Nontender, nondistended, soft. BS present. : Grullon in place, draining pink/light red urine. Discharge Data Allergies Allergy/AdvReac Type Severity Reaction Status Date / Time No Known Allergies Allergy Verified 04/23/20 19:27 Consultations 04/23/20 19:17 ED Decision to Admit Stat 04/23/20 22:35 Consult Urology Routine Procedures Performed Operation Date: 04/25/20 08:20 Actual Procedures p Clot Evacuation and Transurethral Resection of Prostate - Sergo Cota DO s Cystoscopy - Sergo Cota DO Ordered Studies 04/23/20 19:50 US renal/blad retro comp Urgent 04/24/20 17:00 CT abd pelvis wo con Routine Hospital Course (1) GILMA (acute kidney injury): Mr. 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 To Do As Outpatient: 1. Recheck BMP (Cr) 2. Check H&H 3. Followup w/ Urology for catheter and antibiotic reassessment 4. Followup of renal mass, ?MRI as outpatient 5. Resume lisinopril once Cr at baseline GILMA on CKD IV Kunal was admitted for an acute elevation of his baseline Cr of 2.5 to 4.33 tho ught to be due to obstructive LUTS. A grullon was placed, he was subsequentially treated with TURP and fluids as noted below. Following TURP, grullon placeent, and fluids his Cr gradually downtrended. His creatinine remained elevated at 3.46 at discharge, but was continuing to downtrend and was clinically stable for outpatient followup. Patient was also noted to have an incidental 2.8cm R renal mass on US evaluation, this was recommended for outpatient followup and potential MRI. Medications were renally dosed as needed during admission. Patient was instructed to call his PCP for a f/u BMP (Cr check) within 72 hours or d/c. TURP 2/2 lower urinary tract symptoms 2/2 prostate enlargement/hematuria Mr. Reed was found to have an enlarged prostate on imaging and due his symptoms and GILMA as above was taken for a TURP performed by Dr. Cota on 04/25/2020. Procedure was uncomplicated, although pt was noted to have catheter penetration between obstructed fused lobes of the prostate with a large prostatic varicosity at the bladder neck. He was placed on postop continuous irrigation and perioperative prophylactic cefazolin 2 g every 8 hours. He clinically improved, and after draining red tinged urine for ~24 hours continuous irrigation was discontinued. He was continued on tamsulosin and finasteride. On reassessment by Urology pt was found to be doing well and thought to be stable for outpatient followup. He was discharged with grullon in palce to be changed at urology followup. He was placed on prophylactic keflex (500mg Q8H x7 days, renally adjusted) at Urologys recommendation for 7 days with outpatient followup reassessment. Renal mass Renal ultrasound shows 2.8 cm right renal mass Follow-up MRI as outpatient if clinically improving and stable for discharge HTN - continued amlodipine 2.5 mg - Held lisinopril in setting of GILMA, not resumed at time of discharge New Cardiac Arrhythmia - EKG atrial bigeminy with RBBB - appeared to convert spontaneously on front desk monitor - rate controlled at this time Chronic Anemia - hgb 11.8 on admission. Post-operative decreased but >8.0. Trended daily. - likely secondary to CKD IV, hematuria - MCV 94 - vitamin B12 level 402, folate >20 - iron level 38, Ferritin 122, transferrin 195 - Recommended outpatient CBC in ~1 week Total Time Total Time Spent Total Time Spent (In Minutes): <30 Discharge Plan Discharge Items Patient Disposition: Home - Self-Care Reason For Visit: ELEVATED CR Discharge Diagnosis: Acute kidney injury Activity: Resume your previous activity Non-emergency contact: Primary Care Provider and Urologist Call non-emergency contact if: you have any medication questions, your symptoms worsen, your pain is not controlled, your pain is worsening, your pain is unusual for you, your pain is concerning for you and you have a fever Follow-up/Referrals: González Gibbs DO [Primary Care Provider] - Diet: Heart Healthy Addtl Attending Provider Instructions: You are seen in the hospital for an acute kidney injury due to obstructive urinary symptoms from an enlarged prostate. You had a transurethral resection of the prostate performed by Dr. Cota on 04/25/2020. A urinary catheter has been left in place, you will require follow-up to your primary care physician and urology as noted below. You have medications prescribed as noted below. You have had an antibiotic prescribed, cephalexin. Urology has recommended that you remain on this antibiotic for 7 to 10 days due to your surgery and catheter placement. Please take cephalexin 500 mg every 8 hours for 7 days. Your primary care physician or urology will discuss whether any further antibiotics are necessary with you at a follow-up appointment. If you develop any side effects or signs of allergy including wheezing, difficulty breathing, lip swelling, rash, extremity swelling, chest pain, palpitations, or other concerning symptoms please contact your primary care provider or call 911 for evaluation in the emergency department if you are very concerned. You will need to have followup lab work for both your kidney function and blood counts.Please discuss having a BMP (Basic Metabolic Panel) and H&H (Hemoglobin and Hematocrit) drawn by your primary care provider, you should have these done in ~72 hours. A follow-up appointment is being scheduled for you with urology. They will advise you further on care of your urinary catheter and when it is appropriate to be changed or removed. You should be seen in 1 week. If you do not receive a call to confirm your appointment within 48 hours, please call their office at . A follow-up appointment is being scheduled for you with your PCP Dr. Gibbs. You should be seen within 1 week. If you do not receive a call to confirm your appointment within 48 hours, please call their office at [phone]. If you develop any new or worsening symptoms including fever, chills, sweats, chest pain, chest pressure, difficulty breathing, uncontrolled nausea/vomiting, rash, wheezing, passing out or nearly passing out, bleeding, black/bloody bowel movements, or other new or concerning symptoms please call your primary care physician at [phone], or call 911 for re-evaluation in the emergency department if you are very concerned. Pending Studies at Discharge: Yes Stand-Alone Forms: [facility], Smoking Cessation Medications and DC Order Prescriptions: New finasteride [Proscar] 5 mg Tablet 5 mg PO QAM 30 Days Qty: 30 RF: 0 cephalexin 500 mg capsule 500 mg PO Q8H 7 Days Qty: 21 RF: 0 Continued amlodipine [Norvasc] 5 mg tablet 2.5 mg PO QPM Qty: 30 RF: 5 tamsulosin 0.4 mg capsule 0.4 mg PO HS Qty: 30 RF: 5 multivitamin Tablet 1 tab PO QAM RF: 0 Beet Extract 1 cap PO TID RF: 0 Discontinued aspirin [Aspir-Low] 81 mg Tablet,Delayed Release (Dr/Ec) 81 mg PO QPM RF: 0 Discharge Orders: Discharge Order (Routine); Ordered 04/27/20 Ordered By: Jalil Gunter Admission Data Admit Date/Time: 04/23/20 19:59 Attending Provider: Tyson Capone Admit Provider: Steve Leonard Primary Care Provider: González Gibbs Other Providers: Ksenia Zeng ; Steve Leonard ; Benito Ness Other Interventions: Discharge Summary Assessment (RN) Last Done: 04/27/20 12:14 Supervising Physician Co-Signing Physician Notes I personally examined the patient and verified all allen points of history and exam, discussed case, and agree with decision making with Dr Gunter feeling ok and wants to go home. vitals noted nad heent nc at mmm breathing unlabored no accessory muscles good effort skin no rashes no pallor or icterus neuro no focal deficits GILMA on CKD4 - worrisome that he may have also ongoing progression of baseline creatinine given his creatinine readings over the last year. certainly alleviating the obstruction did cause some improvement - now post op and appearing that obstruction more definitively resolved. stable for home, course of abx. close outpt f/u, serial BMP otherwise as above Resident Activity Tracking Resident Involvement: Resident Care Provided Care Provided: Adult Hospital Medicine
--- NOTE | 2020-04-27 12:10 | Urology Progress Note ---
Date of Service April 27, 2020 Assessment & Plan (1) Hematuria, gross: Patient postop day 2 status post transurethral resection of prostate. Underwent transurethral resection of massive prostate which had considerable bleeding from large prostatic varicosities as well as tearing of tissue from fusion of lateral lobes. Extremely large burden of prostate removed and resected. Patient is on CBI with a 26 Russian catheter. Is tolerating well. Creatinine continues to improve. Patient is the primary caregiver for his and is anxious to get home. CBI has been held. Will need catheter for likely 10 to 14 days. Can follow-up as outpatient in the office. Will likely need antibiotics while catheter is in place. Likely 7 to 10 days of antibiotics. Patient otherwise increasing activity. Is tolerating diet. We will plan for outpatient follow-up with catheter removal and discussion of pathology Discharge today per patient. Currently getting dressed. Admission and Anticipated Discharge Date Admission Date: April 23, 2020 Subjective Postop day 2 status post transurethral resection of massive prostate with considerable bleeding from prostatic varicosities and traumatic catheter. Patient has been tolerating 26 Russian catheter. CBI was stopped yesterday. Patient is ambulating. Tolerating diet. No other major changes. Has not having return of bowel function yet. Is tolerating catheter. No considerable pain or other issues. No nausea or vomiting Review of Systems Review of Systems: All systems reviewed & are unremarkable except as noted in HPI & below Physical Exam Physical Exam: General: Alert in no acute distress. HEENT: Normocephalic Atraumatic. Inspection normal. Cranial Nerves 2-12 Grossly intact. Normal inspection of face. Normal inspection of neck. Psychologic: Normal affect. Respiratory: Nonlabored. No use of accessory muscles. No tachypnea or dyspnea. Cardiovascular: No tachycardia Skin: [place] and Dry. No rashes or visible lesions. Extremities/Lymphatics: No edema Abdomen: Soft Non-distended. No rebound or guarding. : Richard in place with CBI draining clear urine Results & Data ([facility]) Vital Signs (Past 12 Hours) Vital Signs Temp Pulse Pulse Pulse Resp BP Pulse Ox 04/27/20 11:26 36.9 C 86 18 146/62 H 96 04/27/20 08:47 71 04/27/20 06:56 37.3 C 74 18 134/62 97 04/27/20 03:06 37.3 C 78 18 135/77 96 PG Care Time/CCT Total # of Minutes Spent Total Time Spent with Patient: Total time spent is greater than 50% in coordination of care (as documented) at patient's floor/unit and/or counseling patient: Coding Level of Care Code 13158 Subseq Hosp Care Lvl 3 Diagnoses Hematuria, gross R31.0
--- NOTE | 2020-04-27 15:09 | Billing Data ---
Date of Service April 27, 2020 Coding Level of Care Code D/C Day Management <30 mins
== END 2020-04-27 13:39 | disposition home or self-care (01) | DRG 666 ==
LOC: ED 18:25 → SUATTDRO 19:59 → 2N 19:59

== ENCOUNTER 2022-10-29 14:58 | Inpatient (IN) ==
[2022-10-29] MEDS ORDERED: SODIUM CHLORIDE 0.9% 500 ML IV STA (15:12)
[2022-10-29] MEDS ORDERED: SODIUM CHLORIDE 0.9% 1000ML 1,000 ML IV ONE ×2 (15:55→17:23)
--- NOTE | 2022-10-29 16:12 | Emergency Department Note ---
Impression & Plan Acute pyelonephritis, Dizziness, Acute hypotension, GILMA (acute kidney injury) ED Provider Note NAME: JOSÉ MIGUEL DUNAWAY AGE: 86 SEX: M : 1935 ARRIVES VIA: Ambulance INFORMANT: Patient, ED PROVIDER(S): Oscar Singletary DO CHIEF COMPLAINT: Near syncope HPI: The patient is an 86-year-old male who presented to the emergency department for an evaluation of near syncope. The patient describes the sensation that he is going to pass out with dizziness whenever he stands. He denies having any fever or chest pain. He denies having any cough. He does admit to some abdominal distention. He has had some abdominal discomfort as well. He states that this time he has no abdominal pain nausea or vomiting. He denies having any rectal bleeding. He was not seen by his primary care physician prior to coming to the emergency department. ROS: See above HPI for pertinent positives & negatives. A total of 10 systems reviewed and were otherwise negative. PAST MEDICAL HISTORY: See Below PAST SURGICAL HISTORY: See Below FAMILY HISTORY: See Below SOCIAL HISTORY: See Below HOME MEDICATIONS: See Below ALLERGIES: See Below VITALS: See Below PHYSICAL EXAMINATION: GENERAL: Patient is awake alert in no acute distress patient is resting comfortably and showing no signs of anxiety EYES: The conjunctivae are clear. The pupils are round and reactive. EARS, NOSE, MOUTH AND THROAT: The nose is without any evidence of any deformity. NECK: The neck is nontender and supple. RESPIRATORY: Normal respiratory effort is noted there is no evidence of wheezing rhonchi or rales CARDIOVASCULAR: Irregular heart sounds are noted to auscultation. There is no definite murmur. GASTROINTESTINAL: Abdomen was distended but soft. There is no specific tenderness guarding or rigidity. MUSCULOSKELETAL/EXTREMITIES: There is no evidence of gross deformity full range of motion is noted in the hips and shoulders. SKIN: There is no obvious evidence of any rash. There are no petechiae, pallor or cyanosis noted. NEUROLOGIC: Patient is awake alert and oriented x3. Strength is symmetric but diminished. There is no facial droop. Speech was clear MEDICAL DECISION MAKING: The patient is an 86-year-old male who presented to the emergency department for orthostatic hypotension. He states every time he stood up he would become dizzy and lightheaded. He was found have hypotension. I discussed the patient's laboratory and radiographic studies with him. He was found to have an elevation in his white blood cell count. For this reason further laboratory and radiographic studies were obtained. The patient does appear to have signs of urinary tract infection noted on urinalysis. He was treated with IV antibiotics. The patient received multiple IV fluid boluses. I discussed his condition with the on-call [facility] hospitalist group. They have agreed to evaluate the patient in the emergency department for further management and disposition. Triage Nursing notes reviewed. Prior medical records reviewed Vital Signs: reviewed and remarkable for initial hypotension. Differential diagnosis: Benign positional vertigo, dehydration, hypovolemia, anemia, tumor, infection, hypoglycemia, electrolyte abnormalities, cardiac sources, intracerebral event, toxicologic, neurologic, as well as other pathologies. ER treatment provided: See below Diagnostics interpreted by me: ECG: EKG was obtained in the emergency department. My interpretation is atrial fibrillation at 80 bpm. Right bundle branch block pattern was noted. This was compared to a tracing from April 26, 2020. No changes were noted. Cardiac Monitoring: An order was placed for continuous cardiac monitoring. The monitor shows a rate of 75 bpm with atrial fibrillation. Laboratory studies: As stated above and show below. Imaging studies: See below. Radiographic imaging was reviewed by myself Consultation(s): I discussed this case with Kenrick who is on for the [facility] hospitalist group. 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 Pt has declined further evaluation UTI (urinary tract infection) Vitamin D deficiency Surgical History History of prostate surgery Family History Father Brain tumor Other Family history non-contributory Denies family history of Ovarian cancer Prostate cancer Myocardial infarction Breast cancer Lung cancer Colorectal cancer Social History Smoking Status: Never smoker Tobacco Type: Cigarettes Second Hand Exposure: No; Do You Dip or Chew Tobacco: No; Hx Alcohol Use: No Hx Substance Use: No Preferred Language: Romansh Communication Ability: Effective Visual Impairment: Limited Hearing Ability: Hard of Hearing Spa Consultant Required: No Beliefs That Will Affect Care: None marital status: / Current Living Situation: Alone current occupational status: retired How many Children do You have: 0 Feels Safe at Home: Yes Childhood Exposure to Second-Hand Smoke: No caffeine: Yes Dental Care, Regularly: Yes Physical Activity Frequency: Does not Exercise Seatbelt Use: always Sunscreen Use: Yes Assistive Devices: None Allergies Allergies Allergy/AdvReac Type Severity Reaction Status Date / Time No Known Allergies Allergy Verified 10/29/22 18:25 Home Meds Home Medications Medication Instructions Recorded Confirmed multivitamin 1 tab PO QAM 06/03/19 10/29/22 aspirin 81 mg chewable tablet 81 mg PO DAILY 06/18/21 10/29/22 Previous Rx's Medication Instructions Recorded telmisartan 40 mg tablet 40 mg PO DAILY #90 tabs 08/19/22 Results & Data (ED) Vital Signs Vital Signs - 24 hr 10/29/22 15:08 10/29/22 16:05 10/29/22 16:05 Temperature 36.4 C L Temperature Source Temporal Artery Scan Pulse Rate 81 Pulse Rate [Left Finger] 88 Respiratory Rate 20 16 Blood Pressure 90/50 L Blood Pressure [Left Arm] 111/86 Blood Pressure Mean 63 Blood Pressure Mean [Left Arm] 94 Pulse Oximetry 93 94 94 Oxygen Delivery Method Room Air Room Air Sepsis Recent Fever Within 48 Hours No Sepsis New/Unexplained Change in Mental Status N/A Sepsis Action Taken by Nursing No Action Required 10/29/22 16:26 10/29/22 18:28 Temperature Temperature Source Pulse Rate 77 Pulse Rate [Left Finger] 75 Respiratory Rate 16 Blood Pressure Blood Pressure [Left Arm] 140/76 Blood Pressure Mean Blood Pressure Mean [Left Arm] 97 Pulse Oximetry 95 Oxygen Delivery Method Room Air Sepsis Recent Fever Within 48 Hours Sepsis New/Unexplained Change in Mental Status Sepsis Action Taken by [facility] Medications Current Medication List: was personally reviewed by me Laboratory Data Attestation: I reviewed the patient's lab results. 10/29/22 15:53 10/29/22 15:53 Lab Results 10/29/22 10/29/22 10/29/22 Range/Units 15:53 15:53 15:53 WBC 17.49 H (4.8-10.8) K/ul RBC 5.31 (4.70-6.10) M/uL Hgb 15.6 (14.0-18.0) g/dl Hct 49.9 (42.0-52.0) % MCV 94.0 (80.0-100.0) fL MCH 29.4 (25.0-34.0) pg MCHC 31.3 L (32.0-36.0) g/dL RDW Std Deviation 45.1 (36.4-46.3) fL RDW Coeff of [place] 13.1 (11.5-14.5) % Plt Count 351 (130-400) K/uL MPV 10.3 (9.4-12.4) fL Immature Gran % (Auto) 0.7 % Neut % (Auto) 80.1 % Lymph % (Auto) 13.8 % [place] % (Auto) 4.6 % Eos % (Auto) 0.4 % Baso % (Auto) 0.4 % Neut # (Auto) 13.99 H (1.40-6.50) K/uL Lymph # (Auto) 2.42 (1.2-3.4) K/uL [place] # (Auto) 0.81 H (0.11-0.59) K/uL Eos # (Auto) 0.07 (0-0.50) K/uL Baso # (Auto) 0.07 (0-0.2) K/uL Immature Gran # (Auto) 0.13 (0.01-0.20) K/uL Sodium 134 L (136-145) mmol/L Potassium 4.4 (3.5-5.1) mmol/L Chloride 103 (98-107) mmol/L Carbon Dioxide 21 (21-32) mmol/L Anion Gap 10 (3-11) BUN 80 H (6-23) mg/dl Creatinine 4.18 H (0.6-1.4) mg/dl Est Cr Clr Drug Dosing 15.3 ml/min Est GFR ( Amer) 13.9 ml/min Est GFR (Non-Af Amer) 12.0 ml/min BUN/Creatinine Ratio 19.1 (10-20) Glucose 183 H (70-99(Fasting)) mg/dl Calcium 9.1 (8.6-10.3) mg/dl Total Bilirubin 1.3 H (0.2-1.0) mg/dl AST 33 (13-39) U/L ALT 42 (7-52) U/L Alkaline Phosphatase 132 H (34-104) U/L Troponin I High Sens 14.8 (0-20) pg/ml C-Reactive Protein 12.43 H (0-0.5) mg/dl Total Protein 8.6 H (6.0-8.3) gm/dl Albumin 3.3 L (3.4-5.0) gm/dl Globulin 5.3 H (2.5-4.0) gm/dl Albumin/Globulin Ratio 0.6 L (0.9-2) Lipase 49 (11-82) U/L Procalcitonin 0.80 H (0-0.5) ng/ml Urine Color Urine Appearance (Clear) Urine pH (4.5-7.5) Ur Specific [place] (1.000-1.030) Urine Protein (Negative) Urine Glucose (UA) (Negative) Urine Ketones (Negative) Urine Blood (Negative) Urine Nitrite (Negative) Urine Bilirubin (Negative) Urine Urobilinogen (Negative) Ur Leukocyte Esterase (Negative) Urine WBC (Auto) (0-5) /hpf Urine RBC (Auto) (0-4) /hpf U Hyaline Cast (Auto) (0-5) /lpf U Epithel Cells (Auto) (0-5) /lpf Urine Bacteria (Auto) (Negative) 10/29/22 Range/Units 18:22 WBC (4.8-10.8) K/ul RBC (4.70-6.10) M/uL Hgb (14.0-18.0) g/dl Hct (42.0-52.0) % MCV (80.0-100.0) fL MCH (25.0-34.0) pg MCHC (32.0-36.0) g/dL RDW Std Deviation (36.4-46.3) fL RDW Coeff of [place] (11.5-14.5) % Plt Count (130-400) K/uL MPV (9.4-12.4) fL Immature Gran % (Auto) % Neut % (Auto) % Lymph % (Auto) % [place] % (Auto) % Eos % (Auto) % Baso % (Auto) % Neut # (Auto) (1.40-6.50) K/uL Lymph # (Auto) (1.2-3.4) K/uL [place] # (Auto) (0.11-0.59) K/uL Eos # (Auto) (0-0.50) K/uL Baso # (Auto) (0-0.2) K/uL Immature Gran # (Auto) (0.01-0.20) K/uL Sodium (136-145) mmol/L Potassium (3.5-5.1) mmol/L Chloride (98-107) mmol/L Carbon Dioxide (21-32) mmol/L Anion Gap (3-11) BUN (6-23) mg/dl Creatinine (0.6-1.4) mg/dl Est Cr Clr Drug Dosing ml/min Est GFR ( Amer) ml/min Est GFR (Non-Af Amer) ml/min BUN/Creatinine Ratio (10-20) Glucose (70-99(Fasting)) mg/dl Calcium (8.6-10.3) mg/dl Total Bilirubin (0.2-1.0) mg/dl AST (13-39) U/L ALT (7-52) U/L Alkaline Phosphatase (34-104) U/L Troponin I High Sens (0-20) pg/ml C-Reactive Protein (0-0.5) mg/dl Total Protein (6.0-8.3) gm/dl Albumin (3.4-5.0) gm/dl Globulin (2.5-4.0) gm/dl Albumin/Globulin Ratio (0.9-2) Lipase (11-82) U/L Procalcitonin (0-0.5) ng/ml Urine Color Yellow Urine Appearance Turbid A (Clear) Urine pH 5.5 (4.5-7.5) Ur Specific [place] 1.015 (1.000-1.030) Urine Protein 1+ H (Negative) Urine Glucose (UA) Negative (Negative) Urine Ketones Negative (Negative) Urine Blood 2+ H (Negative) Urine Nitrite Negative (Negative) Urine Bilirubin Negative (Negative) Urine Urobilinogen Negative (Negative) Ur Leukocyte Esterase 3+ H (Negative) Urine WBC (Auto) >30 H (0-5) /hpf Urine RBC (Auto) 5-10 H (0-4) /hpf U Hyaline Cast (Auto) 1-5 (0-5) /lpf U Epithel Cells (Auto) 10-20 H (0-5) /lpf Urine Bacteria (Auto) 4+ H (Negative) Administered Medications Discontinued Medications Sodium Chloride (Nss) 500 mls @ 999 mls/hr IV .Q31M STA Stop: 10/29/22 15:42 Last Admin: 10/29/22 16:09 Dose: Not Given Documented By: TIA Sodium Chloride (Nss 1000ml) 1,000 mls @ 999 mls/hr IV .Q1H1M ONE Stop: 10/29/22 16:55 Last Infusion: 10/29/22 17:15 Dose: 0 mls/hr Documented By: Admin: 10/29/22 16:08 Dose: 999 mls/hr Documented By: TIA Sodium Chloride (Nss 1000ml) 1,000 mls @ 999 mls/hr IV .Q1H1M ONE Stop: 10/29/22 18:23 Last Admin: 10/29/22 18:24 Dose: 999 mls/hr Documented By: TIA Ceftriaxone Sodium (Rocephin) 2,000 mg in 70 mls @ 140 mls/hr IV NOW STA Stop: 10/29/22 18:23 Last Infusion: 10/29/22 19:23 Dose: 0 mls/hr Documented By: Admin: 10/29/22 18:20 Dose: 140 mls/hr Documented By: TIA Imaging Data Attestation: I personally reviewed and interpreted this imaging study as follows: My Impression: 1 view chest x-ray was obtained in the emergency department. My interpretation is no free air or signs of infiltrate, final report below. CT of the abdomen and pelvis was obtained in the emergency department. My interpretation is no bowel obstruction or free air, final report below. Radiologist's Impression: Chest X-Ray 10/29/22 15:12 XR chest 1V portable HISTORY: Generalized abdominal pain. COMPARISON: Chest 12/08/2018. FINDINGS: The lungs are clear. Cardiac silhouette is mildly enlarged. This remains unchanged. No pleural effusions. No pneumothorax. IMPRESSION: No significant change compared to the prior study. No acute process. ACT 112: Negative or not required by law. Electronically signed by: Rosalio Shook M.D. 10/29/2022 5:03 PM Abdomen/Pelvis CT 10/29/22 17:[address] WITHOUT CONTRAST CT DOSE: 1345.41 mGy.cm HISTORY: Occasional has abdominal pain pain and near syn TECHNIQUE: Multiaxial CT images of the abdomen and pelvis were performed without contrast. A dose lowering technique was utilized adhering to the principles of ALARA. COMPARISON STUDY: 06/15/2000 FINDINGS: Cardiomegaly with coronary artery calcifications. Mild subsegmental bibasilar atelectasis. No pneumatosis or pneumoperitoneum. The unenhanced spleen is unremarkable with scattered calcified granulomata. Mild generalized pancreatic atrophy. Unremarkable adrenal glands. Contracted gallbladder. The liver is within normal limits. Cortical thinning of the left greater than right kidneys. Cysts of the kidneys measure up to 2.5 cm on the right. No urolith or hydronephrosis. Prostatomegaly with TURP defect. Partial distention of the urinary bladder with wall thickening and perivesicular stranding. Atherosclerosis of the aorta without aneurysm. No lymphadenopathy. No bowel obstruction or bowel wall thickening. Extensive colonic diverticulosis. Normal appendix. No ascites or mesenteric inflammation. No acute fracture identified. IMPRESSION: 1. No acute intra-abdominal or intrapelvic abnormality. 2. No bowel obstruction or bowel wall thickening. Normal appendix. 3. Colonic diverticulosis. 4. Prostatomegaly with chronic bladder outlet obstruction. Correlate with urinalysis to exclude cystitis. 5. Additional findings as above. ACT 112: Negative or not required by law. The above report was generated using voice recognition software. It may contain grammatical, syntax or spelling errors. Electronically signed by: Randell Segal M.D. 10/29/2022 6:26 PM Discharge Plan Visit Data Chief Complaint: Weakness Stated Complaint: WEAKNESS, UNABLE TO AMBULATE, DIZZINESS ED Provider: Oscar Singletary Discharge Problem: Acute pyelonephritis, Dizziness, Acute hypotension, GILMA (acute kidney injury) Patient Disposition: Being Evaluated by Hospitalist Forms Stand Alone Forms: ScaleDB Prescriptions Prescriptions: No Action telmisartan 40 mg tablet 40 mg PO DAILY Qty: 90 3RF aspirin 81 mg tablet,chewable 81 mg PO DAILY multivitamin Tablet 1 tab PO QAM Referrals Referrals: González Gibbs, [Primary Care Provider] -
--- NOTE | 2022-10-29 16:37 | Electrocardiogram Report ---
Test Reason : Blood Pressure : / mmHG Vent. Rate : 080 BPM Atrial Rate : 000 BPM P-R Int : 000 ms QRS Dur : 134 ms QT Int : 396 ms P-R-T Axes : 000 -73 052 degrees QTc Int : 456 ms Sinus rhythm with frequent Premature atrial complexes Right bundle branch block Left anterior fascicular block Abnormal ECG When compared with ECG of 23-APR-2020 19:06, No significant change Confirmed by Curtis Alvares ([id number]) on 10/29/2022 4:36:49 PM Referred By: Confirmed By:Curtis Alvares
[2022-10-29 16:46] LABS: Basophils # (auto) 0.07 K/uL (0-0.2); Basophils % (auto) 0.4 %; Eosinophils # (auto) 0.07 K/uL (0-0.50); Eosinophils % (auto) 0.4 %; Hematocrit (blood only) 49.9 % (42.0-52.0); Hemoglobin 15.6 g/dl (14.0-18.0); Immature Granulocytes # (auto) 0.13 K/uL (0.01-0.20); Immature Granulocytes % (auto) 0.7 %; Lymphocytes # (auto) 2.42 K/uL (1.2-3.4); Lymphocytes % (auto) 13.8 %; Mean Corpuscular Hemoglobin 29.4 pg (25.0-34.0); Mean Corpuscular Hgb Conc 31.3 g/dL (32.0-36.0); Mean Platelet Volume 10.3 fL (9.4-12.4); Monocytes # (auto) 0.81 K/uL (0.11-0.59); Monocytes % (auto) 4.6 %; Neutrophils # (auto) 13.99 K/uL (1.40-6.50); Neutrophils % (auto) 80.1 %; Platelet Count 351 K/uL (130-400); RDW Coefficient of Variation 13.1 % (11.5-14.5); RDW Standard Deviation 45.1 fL (36.4-46.3); Red Blood Count 5.31 M/uL (4.70-6.10); White Blood Count 17.49 K/ul (4.8-10.8)
[2022-10-29 17:03] LABS: Albumin Globulin Ratio 0.6 (0.9-2); Albumin Level 3.3 gm/dl (3.4-5.0); BUN Creatinine Ratio 19.1 (10-20); Bilirubin,Total 1.3 mg/dl (0.2-1.0); Calcium 9.1 mg/dl (8.6-10.3); Creatinine Clr Calc Pharmacy 15.3 ml/min; Est GFR (African American) 13.9 ml/min; Globulin 5.3 gm/dl (2.5-4.0); Potassium 4.4 mmol/L (3.5-5.1); Total Protein 8.6 gm/dl (6.0-8.3)
--- NOTE | 2022-10-29 17:04 | XRay Report ---
XR chest 1V portable HISTORY: Generalized abdominal pain. COMPARISON: Chest 12/08/2018. FINDINGS: The lungs are clear. Cardiac silhouette is mildly enlarged. This remains unchanged. No pleu ral effusions. No pneumothorax. IMPRESSION: No significant change compared to the prior study. No acute process. ACT 112: Negative or not required by law. Electronically signed by: Rosalio Shook M.D. 10/29/2022 5:03 PM
[2022-10-29 17:08] LABS: Troponin I High Sensitivity 14.8 pg/ml (0-20)
[2022-10-29] MEDS ORDERED: cefTRIAXone SODIUM 2,000 MG/70 ML BAG IV STA (17:54)
--- NOTE | 2022-10-29 18:27 | CT Scan Report ---
ABDOMEN AND PELVIS CT WITHOUT CONTRAST CT DOSE: 1345.41 mGy.cm HISTORY: Occasional has abdominal pain pain and near syn TECHNIQUE: Multiaxial CT images of the abdomen and pelvis were performed without contrast. A dose lo wering technique was utilized adhering to the principles of ALARA. COMPARISON STUDY: 06/15/2000 FINDINGS: Cardiomegaly with coronary artery calcifications. Mild subsegmental bibasilar atelectasis. No pneumatosis or pneumoperitoneum. The unenhanced spleen is unremarkable with scattered calcified gr anulomata. Mild generalized pancreatic atrophy. Unremarkable adrenal glands. Contracted gallbladder. The liver is within normal limits. Cortical thinning of the left greater than right kidneys. Cysts of the kidneys measure up to 2.5 cm o n the right. No urolith or hydronephrosis. Prostatomegaly with TURP defect. Partial distention of the urinary bladder with wall thickening and perivesicular stranding. Atherosclerosis of the aorta witho ut aneurysm. No lymphadenopathy. No bowel obstruction or bowel wall thickening. Extensive colonic div erticulosis. Normal appendix. No ascites or mesenteric inflammation. No acute fracture identified. IMPRESSION: 1. No acute intra-abdominal or intrapelvic abnormality. 2. No bowel obstruction or bowel wall thickening. Normal appendix. 3. Colonic diverticulosis. 4. Prostatomegaly with chronic bladder outlet obstruction. Correlate with urinalysis to exclude cysti tis. 5. Additional findings as above. ACT 112: Negative or not required by law. The above report was generated using voice recognition software. It may contain grammatical, syntax o r spelling errors. Electronically signed by: Randell Segal M.D. 10/29/2022 6:26 PM
[2022-10-29 18:52] LABS: Appearance Urine Turbid (Clear); Bacteria Urine Automated 4+ (Negative); Bilirubin Urine Negative (Negative); Blood Urine 2+ (Negative); Color Urine Yellow; Glucose Urine UA Negative (Negative); Ketones Urine Negative (Negative); Leukocyte Esterase Urine 3+ (Negative); Nitrite Urine Negative (Negative); Protein Urine 1+ (Negative); Specific Gravity Urine 1.015 (1.000-1.030); Urobilinogen Urine Negative (Negative); WBC Urine Automated >30 /hpf (0-5); pH Urine 5.5 (4.5-7.5)
--- NOTE | 2022-10-29 19:11 | History & Physical Report ---
Date of Service October 29, 2022 Assessment & Plan (1) UTI (urinary tract infection): Plan: -Admit to med/surge -Currently stable after initial fluid resuscitation in the ED -Patient has a hx of BPH with urinary retention and recurrent UTI's S/P TURP in 2017 -States he had been doing well since his TURP -Significant leukocytosis with left shift, procal +, UA consistent with UTI -No previous hx of resistant organisms -S/P 1 dose of Ceftriaxone and 1.5L NSS in the ED -Started on another 1L NSS in the ED, will allow this last 1L to run as he appears dehydrated -Will continue with q24h ceftriaxone while urine and blood cultures are in process -Monitor intake, output, and PVR's for retention -If he shows signs of retention could consider starting flomax -SQ heparin for DVT PPX -HH diet -AM CBC, CMP, Mag (2) Dizziness: Plan: -Appears to be due to orthostatic hypotension -Patient only experiences symptoms when standing -No symptoms of vertigo, no focal neuro defects, symptoms resolve when sitting -Fall precautions ordered, instructed patient to change positions slowly -Will obtain TTE tomorrow as he does not have a previous echo available -AM orthostatic vitals (3) Chronic kidney disease (CKD): Plan: -Cr noted to be 4.18 with BUN of 80 -Baseline appears to be near 2.6-2.7 per previous labs but it does not appear that he follows up consistently with outpatient providers -Likely due to UTI, no signs of obstruction/hydro on CT of the abd/pelvis -Monitor renal function after IV fluids (4) Urinary retention: Plan: -Follow PVR's to ensure he is not retaining -If patient is retaining and tamsulosin is restarted would recommend decreasing or discontinuing telmisartan to prevent further episodes or orthostasis (5) Total bilirubin, elevated: Plan: -Total bili of 1.3 with alk phos of 132 -AST/ALT WNL, no acute findings on CT of the abd/pelvis -No abd pain -Follow am CMP (6) Hypertension: Plan: -Currently stable -Holding telmisartan for now (7) CAD (coronary artery disease): Plan: -Continue aspirin Plan The patient was discussed with Dr. 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 In the ED the patient was initially noted to be hypotensive at 90/50 but otherwise stable. Labs were significant for a leukocytosis of 17 with left shift of 13, glucose of 183, corrected sodium of 135, cr of 4.18 (baseline over the past 2 years appears to be near 2.7), BUN of 80, total bili of 1.3, alk phos of 132 but stable AST and ALT, and UA suggestive of UTI. Prior to admission the patient was given 2.5L NSS and a dose of ceftriaxone. At the time of the exam the patient was sitting in bed in no acute distress. He is very hard of hearing but a good historian. He states that the dizziness he has been experiencing has been occur for many years. The symptoms only occur when he stands from a sitting position. When he sits back down his symptoms resolve. He states that he has felt fatigued/generally weak over the past few days. He denies recent fever, chills, chest pain, heart palpitations, SOB, headache, changes in vision, hearing, taste, and smell, paresthesias, unilateral weakness, abd pain, nausea, vomiting, diarrhea, dysuria, hematuria, melena, LE swelling and recent trauma. He confirms that he is only on a baby aspirin, multivitamin, and telmisartan. He is currently feeling improved compared to ED arrival. We discussed code status, he wishes to be a full code at this time and for his [id number] and niece to make medical decisions for him if he cannot make them himself. Please refer to Dr. Mejia's attestation with any changes to the treatment plan Allergies Allergy/AdvReac Type Severity Reaction Status Date / Time No Known Allergies Allergy Verified 10/29/22 18:25 Home Medications Medication Instructions Recorded Confirmed Type multivitamin 1 tab PO QAM 06/03/19 10/29/22 History aspirin 81 mg chewable tablet 81 mg PO DAILY 06/18/21 10/29/22 History telmisartan 40 mg tablet 40 mg PO DAILY #90 tabs 08/19/22 10/29/22 Rx Past Med/Surg History Medical History (Updated 10/29/22 @ 20:08 by Kenrick Fraire PA-C) Acute retention of urine GILMA (acute kidney injury) Anemia Cardiac arrhythmia Choledocholithiasis Encounter for pre-operative examination Enlarged prostate Hematuria, gross Hematuria, gross [place] (hard of hearing) Hx of deep venous thrombosis Phimosis Prostatic hemorrhage 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 Pt has declined further evaluation UTI (urinary tract infection) Vitamin D deficiency Surgical History History of prostate surgery Family History Father Brain tumor Other Family history non-contributory Denies family history of Ovarian cancer Prostate cancer Myocardial infarction Breast cancer Lung cancer Colorectal cancer Social History Smoking Status: Never smoker Tobacco Type: Cigarettes Second Hand Exposure: No; Do You Dip or Chew Tobacco: No; Hx Alcohol Use: No Hx Substance Use: No Preferred Language: [place] Communication Ability: Effective Visual Impairment: Limited Hearing Ability: Hard of Hearing Admissions Advisor Required: No Beliefs That Will Affect Care: None marital status: / Current Living Situation: Alone current occupational status: retired How many Children do You have: 0 Other Information That Helps Us Care for You: No Feels Safe at Home: Yes Safety Concerns: Feels Safe At This Time Childhood Exposure to Second-Hand Smoke: No caffeine: Yes Dental Care, Regularly: Yes Physical Activity Frequency: Does not Exercise Seatbelt Use: always Sunscreen Use: Yes Assistive Devices: None Physical Exam Physical Exam: Physical Exam: General: In no acute distress, stated age, well-nourished, good hygiene, non- toxic appearing HEENT: Normocephalic, atraumatic, no scleral icterus, pupils around round, symmetrical, and reactive to light, moist mucus membranes, trachea midline, no thyromegaly Chest/Pulm: No respiratory distress, symmetrical chest expansion, clear breath sounds throughout Cardiac: RRR, systolic murmur noted Abdomen: Negative for ascites and bruising, normoactive bowel sounds, soft, non-tender to palpation throughout Musculoskeletal: Symmetrical and without signs of acute trauma, upper and lower extremities with full ROM, no atrophy, spasticity, or flaccidity Extremities: Radial, dorsalis pedis, and posterior tibial pulses are intact and symmetrical, no edema noted in the BL LE's Skin: Warm, dry, no rashes , lesions, or scars noted Neuro: Alert and oriented to person, place, month, year, and president, no focal defects, CN II-XII tested and intact, finger to nose test negative, negative pronator drift, no tremors noted Psych: No acute distress, calm and cooperative during the exam Results & Data Results & Data Vital Signs (Past 12 Hours) Vital Signs Temp Pulse Pulse Resp BP BP Pulse Ox 10/29/22 18:28 75 16 140/76 95 10/29/22 16:26 77 10/29/22 16:05 88 16 111/86 94 10/29/22 16:05 94 10/29/22 15:08 36.4 C L 81 20 90/50 L 93 O2 Del Method 10/29/22 18:28 Room Air 10/29/22 16:26 10/29/22 16:05 10/29/22 16:05 Room Air 10/29/22 15:08 Room Air Laboratory Results Abnormal lab results 10/29/22 10/29/22 10/29/22 Range/Units 15:53 15:53 18:22 WBC 17.49 H (4.8-10.8) K/ul MCHC 31.3 L (32.0-36.0) g/dL Neut # (Auto) 13.99 H (1.40-6.50) K/uL [place] # (Auto) 0.81 H (0.11-0.59) K/uL Sodium 134 L (136-145) mmol/L BUN 80 H (6-23) mg/dl Creatinine 4.18 H (0.6-1.4) mg/dl Glucose 183 H (70-99(Fasting)) mg/dl Total Bilirubin 1.3 H (0.2-1.0) mg/dl Alkaline Phosphatase 132 H (34-104) U/L Total Protein 8.6 H (6.0-8.3) gm/dl Albumin 3.3 L (3.4-5.0) gm/dl Globulin 5.3 H (2.5-4.0) gm/dl Albumin/Globulin Ratio 0.6 L (0.9-2) Urine Appearance Turbid A (Clear) Urine Protein 1+ H (Negative) Urine Blood 2+ H (Negative) Ur Leukocyte Esterase 3+ H (Negative) Urine WBC (Auto) >30 H (0-5) /hpf Urine RBC (Auto) 5-10 H (0-4) /hpf U Epithel Cells (Auto) 10-20 H (0-5) /lpf Urine Bacteria (Auto) 4+ H (Negative) Diagnostic Findings Chest X-Ray 10/29/22 15:12 XR chest 1V portable HISTORY: Generalized abdominal pain. COMPARISON: Chest 12/08/2018. FINDINGS: The lungs are clear. Cardiac silhouette is mildly enlarged. This remains unchanged. No pleural effusions. No pneumothorax. IMPRESSION: No significant change compared to the prior study. No acute process. ACT 112: Negative or not required by law. Electronically signed by: Rosalio Shook M.D. 10/29/2022 5:03 PM Abdomen/Pelvis CT 10/29/22 17:[address] WITHOUT CONTRAST CT DOSE: 1345.41 mGy.cm HISTORY: Occasional has abdominal pain pain and near syn TECHNIQUE: Multiaxial CT images of the abdomen and pelvis were performed without contrast. A dose lowering technique was utilized adhering to the principles of ALARA. COMPARISON STUDY: 06/15/2000 FINDINGS: Cardiomegaly with coronary artery calcifications. Mild subsegmental bibasilar atelectasis. No pneumatosis or pneumoperitoneum. The unenhanced spleen is unremarkable with scattered calcified granulomata. Mild generalized pancreatic atrophy. Unremarkable adrenal glands. Contracted gallbladder. The liver is within normal limits. Cortical thinning of the left greater than right kidneys. Cysts of the kidneys measure up to 2.5 cm on the right. No urolith or hydronephrosis. Prostatomegaly with TURP defect. Partial distention of the urinary bladder with wall thickening and perivesicular stranding. Atherosclerosis of the aorta without aneurysm. No lymphadenopathy. No bowel obstruction or bowel wall thickening. Extensive colonic diverticulosis. Normal appendix. No ascites or mesenteric inflammation. No acute fracture identified. IMPRESSION: 1. No acute intra-abdominal or intrapelvic abnormality. 2. No bowel obstruction or bowel wall thickening. Normal appendix. 3. Colonic diverticulosis. 4. Prostatomegaly with chronic bladder outlet obstruction. Correlate with urinalysis to exclude cystitis. 5. Additional findings as above. ACT 112: Negative or not required by law. The above report was generated using voice recognition software. It may contain grammatical, syntax or spelling errors. Electronically signed by: Randell Segal M.D. 10/29/2022 6:26 PM ECG Additional Comments: Sinus rhythm with frequent Premature atrial complexes Right bundle branch block Left anterior fascicular block Abnormal ECG When compared with ECG of 23-APR-2020 19:06, No significant change Confirmed by Curtis Alvares ([id number]) on 10/29/2022 4:36:49 PM Code Status & VTE Plan Code Status Full code VTE Prophylaxis Plan VTE Prophylaxis will be ordered: Yes Supervising Physician Co-Signing Physician Notes I personally saw and examined the patient. I verified all allen points and agree with Kenrick Fraire PA-C with the following exceptions and/or additions: 86 year old male presents to the ER with generalized weakness over the last two days. No specific urinary symptoms. No BPH symptoms prior to this. O/E A&Ox3, HS RRR, no murmurs, Chest CTAB, Abdo SNT, no CVA tenderness A/P UTI - ceftriaxone, follow up urine and blood cultures PG Care Time/CCT Total # of Minutes Spent Total Time Spent with Patient: Total time spent is greater than 50% in coordination of care (as documented) at patient's floor/unit and/or counseling patient: Coding [place] [address] INT INP/OBS CARE 2/55MIN Patient Type Established Medical Decision Making Moderate Complexity Diagnoses UTI (urinary tract infection) N39.0 Dizziness R42 Chronic kidney disease (CKD) N18.9 Chronic kidney disease stage: unspecified stage Urinary retention R33.9 Total bilirubin, elevated R17 Hypertension I10 CAD (coronary artery disease) I25.10 (3) Chronic kidney disease (CKD) Chronic kidney disease stage: unspecified stage Qualified Code(s): N18.9 - Chronic kidney disease, unspecified
[2022-10-29 19:12] LABS: C Reactive Protein 12.43 mg/dl (0-0.5)
[2022-10-29] MEDS ORDERED: ACETAMINOPHEN 325 MG TAB PO PRN (22:31)
[2022-10-29] MEDS: HEPARIN SOD 5,000 UNIT/0.5 ML VIAL SQ SCH (23:28)
[2022-10-30] MEDS: HEPARIN SOD 5,000 UNIT/0.5 ML VIAL SQ SCH ×2 (07:31→21:09)
[2022-10-30] MEDS: ASPIRIN 81 MG ECTAB PO SCH (07:31)
[2022-10-30 08:00] LABS: Mean Corpuscular Hgb Conc 32.5 g/dL (32.0-36.0); Mean Corpuscular Volume 92.2 fL (80.0-100.0); Mean Platelet Volume 10.6 fL (9.4-12.4); Platelet Count 269 K/uL (130-400); RDW Coefficient of Variation 13.2 % (11.5-14.5); RDW Standard Deviation 44.9 fL (36.4-46.3); Red Blood Count 4.34 M/uL (4.70-6.10); White Blood Count 28.13 K/ul (4.8-10.8)
[2022-10-30 08:07] LABS: Albumin Globulin Ratio 0.7 (0.9-2); Albumin Level 2.6 gm/dl (3.4-5.0); BUN Creatinine Ratio 19.5 (10-20); Bilirubin,Total 0.8 mg/dl (0.2-1.0); Calcium 7.9 mg/dl (8.6-10.3); Est GFR (African American) 16.3 ml/min; Est GFR (Non-African American) 14.1 ml/min; Magnesium 2.4 mg/dl (1.7-2.4); Potassium 4.7 mmol/L (3.5-5.1); Total Protein 6.6 gm/dl (6.0-8.3)
[2022-10-30 08:16] LABS: Basophils # (auto) 0.08 K/uL (0-0.2); Basophils % (auto) 0.3 %; Eosinophils # (auto) 0.01 K/uL (0-0.50); Immature Granulocytes # (auto) 0.32 K/uL (0.01-0.20); Immature Granulocytes % (auto) 1.1 %; Lymphocytes # (auto) 1.67 K/uL (1.2-3.4); Lymphocytes % (auto) 5.9 %; Monocytes # (auto) 0.82 K/uL (0.11-0.59); Monocytes % (auto) 2.9 %; Neutrophils # (auto) 25.23 K/uL (1.40-6.50); Neutrophils % (auto) 89.8 %
[2022-10-30] MEDS: cefTRIAXone SODIUM 2,000 MG in DEXTROSE 5% 50 ML IV SCH (17:56)
[2022-10-31 07:16] LABS: Albumin Globulin Ratio 0.6 (0.9-2); Albumin Level 2.4 gm/dl (3.4-5.0); BUN Creatinine Ratio 22.6 (10-20); Bilirubin,Total 0.4 mg/dl (0.2-1.0); Calcium 8.1 mg/dl (8.6-10.3); Creatinine Clr Calc Pharmacy 18.8 ml/min; Est GFR (African American) 17.2 ml/min; Est GFR (Non-African American) 14.9 ml/min; Magnesium 2.8 mg/dl (1.7-2.4); Potassium 4.3 mmol/L (3.5-5.1); Total Protein 6.4 gm/dl (6.0-8.3)
[2022-10-31 07:19] LABS: Basophils # (auto) 0.06 K/uL (0-0.2); Basophils % (auto) 0.5 %; Eosinophils # (auto) 0.23 K/uL (0-0.50); Hematocrit (blood only) 37.4 % (42.0-52.0); Hemoglobin 12.1 g/dl (14.0-18.0); Immature Granulocytes # (auto) 0.09 K/uL (0.01-0.20); Immature Granulocytes % (auto) 0.8 %; Lymphocytes # (auto) 3.27 K/uL (1.2-3.4); Lymphocytes % (auto) 27.8 %; Mean Corpuscular Hemoglobin 29.9 pg (25.0-34.0); Mean Corpuscular Hgb Conc 32.4 g/dL (32.0-36.0); Mean Corpuscular Volume 92.3 fL (80.0-100.0); Mean Platelet Volume 10.5 fL (9.4-12.4); Monocytes # (auto) 0.88 K/uL (0.11-0.59); Monocytes % (auto) 7.5 %; Neutrophils # (auto) 7.23 K/uL (1.40-6.50); Neutrophils % (auto) 61.4 %; Platelet Count 249 K/uL (130-400); RDW Coefficient of Variation 13.4 % (11.5-14.5); RDW Standard Deviation 45.7 fL (36.4-46.3); Red Blood Count 4.05 M/uL (4.70-6.10); White Blood Count 11.76 K/ul (4.8-10.8)
--- NOTE | 2022-10-31 07:23 | Hospitalist Progress Note ---
Date of Service October 30, 2022 Assessment & Plan (1) UTI (urinary tract infection): Plan: -Admit to med/surge -Currently stable after initial fluid resuscitation in the ED -Patient has a hx of BPH with urinary retention and recurrent UTI's S/P TURP in 2017 -States he had been doing well since his TURP -Significant leukocytosis with left shift, procal +, UA consistent with UTI -No previous hx of resistant organisms -S/P 1 dose of Ceftriaxone and 1.5L NSS in the ED -Started on another 1L NSS in the ED, will allow this last 1L to run as he appears dehydrated -Will continue with q24h ceftriaxone while urine and blood cultures are in process -Monitor intake, output, and PVR's for retention -If he shows signs of retention could consider starting flomax -SQ heparin for DVT PPX -HH diet -AM CBC, CMP, Mag (2) Dizziness: Plan: -Appears to be due to orthostatic hypotension -Patient only experiences symptoms when standing -No symptoms of vertigo, no focal neuro defects, symptoms resolve when sitting -Fall precautions ordered, instructed patient to change positions slowly -Will obtain TTE tomorrow as he does not have a previous echo available -AM orthostatic vitals (3) Chronic kidney disease (CKD): Plan: -Cr noted to be 4.18 with BUN of 80 -Baseline appears to be near 2.6-2.7 per previous labs but it does not appear that he follows up consistently with outpatient providers -Likely due to UTI, no signs of obstruction/hydro on CT of the abd/pelvis -Monitor renal function after IV fluids (4) Urinary retention: Plan: -Follow PVR's to ensure he is not retaining -If patient is retaining and tamsulosin is restarted would recommend decreasing or discontinuing telmisartan to prevent further episodes or orthostasis (5) Total bilirubin, elevated: Plan: -Total bili of 1.3 with alk phos of 132 -AST/ALT WNL, no acute findings on CT of the abd/pelvis -No abd pain -Follow am CMP (6) Hypertension: Plan: -Currently stable -Holding telmisartan for now (7) CAD (coronary artery disease): Plan: -Continue aspirin Plan The patient was discussed with Dr. Mejia at the time of the admission Admission and Anticipated Discharge Date Admission Date: October 29, 2022 Subjective DOS 10/30/2022 Late entry technical Patient seen on hospitalist rounds and history and physical reviewed completely and in detail. Patient is already feeling significantly better. At the end of my visit he said he wants to go home tomorrow. This could possibly happen during his follow-up visit tomorrow. Physical Exam Physical Exam: Awake alert oriented Constitutional: WD/WN, vitals as above Eyes: PERRL, conjunctivae normal, anicteric sclerae ENMT: external ear and nose normal, oropharynx normal Neck: trachea midline, no thyromegaly Respiratory: normal respiratory effort, lungs clear to auscultation Cardiovascular: RRR, no murmur, no edema Gastrointestinal (Abdomen): normal bowel sounds, soft, nontender, no hepatosplenomegaly Neurologic: PERRL, EOMI, accommodation nl, no face palsy, no dysarthria Psychiatric: A+Ox3, euthymic affect Results & Data Results & Data Vital Signs (Past 12 Hours) Vital Signs Temp Pulse Resp BP Pulse Ox O2 Del Method 10/30/22 21:41 36.4 C L 64 18 157/53 H 94 Room Air PG Care Time/CCT Total # of Minutes Spent Total Time Spent with Patient: Total time spent is greater than 50% in coordination of care (as documented) at patient's floor/unit and/or counseling patient: Coding Level of Care Code 57492 SUB INP/OBS CARE 2/35MIN Diagnoses UTI (urinary tract infection) N39.0 Dizziness R42 Chronic kidney disease (CKD) N18.9 Chronic kidney disease stage: unspecified stage Urinary retention R33.9 Total bilirubin, elevated R17 Hypertension I10 CAD (coronary artery disease) I25.10 Time Spent (min) 35 (3) Chronic kidney disease (CKD) Chronic kidney disease stage: unspecified stage Qualified Code(s): N18.9 - Chronic kidney disease, unspecified
[2022-10-31] MEDS: ASPIRIN 81 MG ECTAB PO SCH (08:06)
[2022-10-31] MEDS: HEPARIN SOD 5,000 UNIT/0.5 ML VIAL SQ SCH ×2 (08:06→22:34)
[2022-10-31] MEDS: cefTRIAXone SODIUM 2,000 MG in DEXTROSE 5% 50 ML IV SCH (18:05)
--- NOTE | 2022-10-31 23:56 | Hospitalist Progress Note ---
Date of Service October 31, 2022 Assessment & Plan (1) UTI (urinary tract infection): Plan: -Admit to med/surge -Currently stable after initial fluid resuscitation in the ED -Patient has a hx of BPH with urinary retention and recurrent UTI's S/P TURP in 2017 -States he had been doing well since his TURP -Significant leukocytosis with left shift, procal +, UA consistent with UTI -No previous hx of resistant organisms -S/P 1 dose of Ceftriaxone and 1.5L NSS in the ED -Started on another 1L NSS in the ED, will allow this last 1L to run as he appears dehydrated -Will continue with q24h ceftriaxone while urine and blood cultures are in process -Monitor intake, output, and PVR's for retention -If he shows signs of retention could consider starting flomax -SQ heparin for DVT PPX -HH diet -AM CBC, CMP, Mag (2) Dizziness: Plan: -Appears to be due to orthostatic hypotension -Patient only experiences symptoms when standing -No symptoms of vertigo, no focal neuro defects, symptoms resolve when sitting -Fall precautions ordered, instructed patient to change positions slowly -Will obtain TTE tomorrow as he does not have a previous echo available -AM orthostatic vitals (3) Chronic kidney disease (CKD): Plan: -Cr noted to be 4.18 with BUN of 80 -Baseline appears to be near 2.6-2.7 per previous labs but it does not appear that he follows up consistently with outpatient providers -Likely due to UTI, no signs of obstruction/hydro on CT of the abd/pelvis -Monitor renal function after IV fluids (4) Urinary retention: Plan: -Follow PVR's to ensure he is not retaining -If patient is retaining and tamsulosin is restarted would recommend decreasing or discontinuing telmisartan to prevent further episodes or orthostasis (5) Total bilirubin, elevated: Plan: -Total bili of 1.3 with alk phos of 132 -AST/ALT WNL, no acute findings on CT of the abd/pelvis -No abd pain -Follow am CMP (6) Hypertension: Plan: -Currently stable -Holding telmisartan for now (7) CAD (coronary artery disease): Plan: -Continue aspirin Plan The patient was discussed with Dr. Mejia at the time of the admission Admission and Anticipated Discharge Date Admission Date: October 29, 2022 Subjective Today on October 31, 2022 patient improving and certainly not digressing. His vital signs are stable with blood pressure 135/71 saturation 95% and temp of 36.7. His urinalysis does reveal leukocyte esterase but no other red flags. His blood cultures x2 were negative his white count has come down significantly and his renal function is improving with time going from a creatinine of 4.18 next to a creatinine of 3.65 next to a creatinine of 3.49. 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 Patient is already feeling significantly better. At the end of my visit he said he wants to go home tomorrow. This could possibly happen during his follow-up visit tomorrow. Physical Exam Physical Exam: Awake alert oriented Constitutional: WD/WN, vitals as above Eyes: PERRL, conjunctivae normal, anicteric sclerae ENMT: external ear and nose normal, oropharynx normal Neck: trachea midline, no thyromegaly Respiratory: normal respiratory effort, lungs clear to auscultation Cardiovascular: RRR, no murmur, no edema Gastrointestinal (Abdomen): normal bowel sounds, soft, nontender, no hepatosplenomegaly Neurologic: PERRL, EOMI, accommodation nl, no face palsy, no dysarthria Psychiatric: A+Ox3, euthymic affect Results & Data Results & Data Vital Signs (Past 12 Hours) Vital Signs Temp Pulse Resp BP Pulse Ox Pulse Ox O2 Del Method 10/31/22 23:00 96 10/31/22 19:37 36.5 C 74 18 143/76 H 97 Room Air 10/31/22 14:53 36.7 C 70 18 135/71 95 Room Air O2 Del Method 10/31/22 23:00 Room Air 10/31/22 19:37 10/31/22 14:53 PG Care Time/CCT Total # of Minutes Spent Total Time Spent with Patient: Total time spent is greater than 50% in coordination of care (as documented) at patient's floor/unit and/or counseling patient: Coding Level of Care Code 72594 SUB INP/OBS CARE 2/35MIN Diagnoses UTI (urinary tract infection) N39.0 Dizziness R42 Chronic kidney disease (CKD) N18.9 Chronic kidney disease stage: unspecified stage Urinary retention R33.9 Total bilirubin, elevated R17 Hypertension I10 CAD (coronary artery disease) I25.10 Time Spent (min) 35 (3) Chronic kidney disease (CKD) Chronic kidney disease stage: unspecified stage Qualified Code(s): N18.9 - Chronic kidney disease, unspecified
[2022-11-01 06:20] LABS: Basophils # (auto) 0.05 K/uL (0-0.2); Basophils % (auto) 0.6 %; Eosinophils % (auto) 2.2 %; Hematocrit (blood only) 38.9 % (42.0-52.0); Hemoglobin 12.3 g/dl (14.0-18.0); Immature Granulocytes # (auto) 0.09 K/uL (0.01-0.20); Lymphocytes # (auto) 2.64 K/uL (1.2-3.4); Lymphocytes % (auto) 29.3 %; Mean Corpuscular Hemoglobin 29.4 pg (25.0-34.0); Mean Corpuscular Hgb Conc 31.6 g/dL (32.0-36.0); Mean Corpuscular Volume 93.1 fL (80.0-100.0); Mean Platelet Volume 10.2 fL (9.4-12.4); Monocytes # (auto) 1.01 K/uL (0.11-0.59); Monocytes % (auto) 11.2 %; Neutrophils # (auto) 5.02 K/uL (1.40-6.50); Neutrophils % (auto) 55.7 %; Platelet Count 249 K/uL (130-400); RDW Coefficient of Variation 13.2 % (11.5-14.5); RDW Standard Deviation 45.1 fL (36.4-46.3); Red Blood Count 4.18 M/uL (4.70-6.10); White Blood Count 9.01 K/ul (4.8-10.8)
[2022-11-01 06:38] LABS: Albumin Globulin Ratio 0.7 (0.9-2); Albumin Level 2.6 gm/dl (3.4-5.0); BUN Creatinine Ratio 19.8 (10-20); Bilirubin,Total 0.4 mg/dl (0.2-1.0); Calcium 8.2 mg/dl (8.6-10.3); Est GFR (African American) 19.7 ml/min; Magnesium 2.5 mg/dl (1.7-2.4); Potassium 4.3 mmol/L (3.5-5.1); Total Protein 6.6 gm/dl (6.0-8.3)
[2022-11-01] MEDS: HEPARIN SOD 5,000 UNIT/0.5 ML VIAL SQ SCH ×2 (08:12→20:05)
[2022-11-01] MEDS: ASPIRIN 81 MG ECTAB PO SCH (08:12)
[2022-11-01] MEDS: cefTRIAXone SODIUM 2,000 MG in DEXTROSE 5% 50 ML IV SCH (17:09)
[2022-11-02] MEDS: ASPIRIN 81 MG ECTAB PO SCH (08:03)
[2022-11-02] MEDS: HEPARIN SOD 5,000 UNIT/0.5 ML VIAL SQ SCH (08:04)
[2022-11-02 11:29] LABS: BUN Creatinine Ratio 15.9 (10-20); Calcium 8.5 mg/dl (8.6-10.3); Creatinine Clr Calc Pharmacy 24.8 ml/min; Est GFR (African American) 24.1 ml/min; Est GFR (Non-African American) 20.8 ml/min; Potassium 4.4 mmol/L (3.5-5.1)
--- NOTE | 2022-11-02 16:18 | Hospitalist Progress Note ---
Date of Service October Late entry technical Assessment & Plan (1) UTI (urinary tract infection): Plan: -Admit to med/surge -Currently stable after initial fluid resuscitation in the ED -Patient has a hx of BPH with urinary retention and recurrent UTI's S/P TURP in 2017 -States he had been doing well since his TURP -Significant leukocytosis with left shift, procal +, UA consistent with UTI -No previous hx of resistant organisms -S/P 1 dose of Ceftriaxone and 1.5L NSS in the ED -Started on another 1L NSS in the ED, will allow this last 1L to run as he appears dehydrated -Will continue with q24h ceftriaxone while urine and blood cultures are in pr ocess -Monitor intake, output, and PVR's for retention -If he shows signs of retention could consider starting flomax -SQ heparin for DVT PPX -HH diet -AM CBC, CMP, Mag (2) Dizziness: Plan: -Appears to be due to orthostatic hypotension -Patient only experiences symptoms when standing -No symptoms of vertigo, no focal neuro defects, symptoms resolve when sitting -Fall precautions ordered, instructed patient to change positions slowly -Will obtain TTE tomorrow as he does not have a previous echo available -AM orthostatic vitals (3) Chronic kidney disease (CKD): Plan: -Cr noted to be 4.18 with BUN of 80 -Baseline appears to be near 2.6-2.7 per previous labs but it does not appear that he follows up consistently with outpatient providers -Likely due to UTI, no signs of obstruction/hydro on CT of the abd/pelvis -Monitor renal function after IV fluids (4) Urinary retention: Plan: -Follow PVR's to ensure he is not retaining -If patient is retaining and tamsulosin is restarted would recommend decreasing or discontinuing telmisartan to prevent further episodes or orthostasis (5) Total bilirubin, elevated: Plan: -Total bili of 1.3 with alk phos of 132 -AST/ALT WNL, no acute findings on CT of the abd/pelvis -No abd pain -Follow am CMP (6) Hypertension: Plan: -Currently stable -Holding telmisartan for now (7) CAD (coronary artery disease): Plan: -Continue aspirin Plan The patient was discussed with Dr. Mejia at the time of the admission Admission and Anticipated Discharge Date Admission Date: October 29, 2022 Anticipated date of discharge: 11/02/22 Subjective Continues to show improvement. Physical Exam Physical Exam: Awake alert oriented Constitutional: WD/WN, vitals as above Eyes: PERRL, conjunctivae normal, anicteric sclerae ENMT: external ear and nose normal, oropharynx normal Neck: trachea midline, no thyromegaly Respiratory: normal respiratory effort, lungs clear to auscultation Cardiovascular: RRR, no murmur, no edema Gastrointestinal (Abdomen): normal bowel sounds, soft, nontender, no hepatosplenomegaly Musculoskeletal: no cyanosis or clubbing, extremities motor strength 5/5 Skin: Well tanned warm and dry Neurologic: PERRL, EOMI, accommodation nl, no face palsy, no dysarthria Psychiatric: A+Ox3, euthymic affect Results & Data Results & Data Vital Signs (Past 12 Hours) Vital Signs Temp Pulse Resp BP Pulse Ox O2 Del Method 11/02/22 14:21 36.7 C 60 18 96 Room Air 11/02/22 07:57 36.7 C 61 16 144/78 H 95 Room Air PG Care Time/CCT Total # of Minutes Spent Total Time Spent with Patient: Total time spent is greater than 50% in coordination of care (as documented) at patient's floor/unit and/or counseling patient: Coding Level of Care Code 88205 SUB INP/OBS CARE 04/28MIN Diagnoses UTI (urinary tract infection) N39.0 Dizziness R42 Chronic kidney disease (CKD) N18.9 Chronic kidney disease stage: unspecified stage Urinary retention R33.9 Total bilirubin, elevated R17 Hypertension I10 CAD (coronary artery disease) I25.10 Time Spent (min) 25 (3) Chronic kidney disease (CKD) Chronic kidney disease stage: unspecified stage Qualified Code(s): N18.9 - Chronic kidney disease, unspecified
--- NOTE | 2022-11-02 16:25 | Discharge Summary ---
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 In the ED the patient was initially noted to be hypotensive at 90/50 but otherwise stable. Labs were significant for a leukocytosis of 17 with left shift of 13, glucose of 183, corrected sodium of 135, cr of 4.18 (baseline over the past 2 years appears to be near 2.7), BUN of 80, total bili of 1.3, alk phos of 132 but stable AST and ALT, and UA suggestive of UTI. Prior to admission the patient was given 2.5L NSS and a dose of ceftriaxone. At the time of the exam the patient was sitting in bed in no acute distress. He is very hard of hearing but a good historian. He states that the dizziness he has been experiencing has been occur for many years. The symptoms only occur when he stands from a sitting position. When he sits back down his symptoms resolve. He states that he has felt fatigued/generally weak over the past few days. He denies recent fever, chills, chest pain, heart palpitations, SOB, headache, changes in vision, hearing, taste, and smell, paresthesias, unilateral weakness, abd pain, nausea, vomiting, diarrhea, dysuria, hematuria, melena, LE swelling and recent trauma. He confirms that he is only on a baby aspirin, multivitamin, and telmisartan. He is currently feeling improved compared to ED arrival. We discussed code status, he wishes to be a full code at this time and for his [place]-sn-lnn and niece to make medical decisions for him if he cannot make them himself. Please refer to Dr. Mejia's attestation with any changes to the treatment plan Discharge Data Allergies Allergy/AdvReac Type Severity Reaction Status Date / Time No Known Allergies Allergy Verified 10/29/22 18:25 Consultations 10/29/22 19:00 ED Decision to Admit Stat Ordered Studies 10/29/22 17:22 CT abd pelvis wo con Stat Hospital Course (1) UTI (urinary tract infection): -Admit to med/surge -Currently stable after initial fluid resuscitation in the ED -Patient has a hx of BPH with urinary retention and recurrent UTI's S/P TURP in 2017 -States he had been doing well since his TURP -Significant leukocytosis with left shift, procal +, UA consistent with UTI -No previous hx of resistant organisms -S/P 1 dose of Ceftriaxone and 1.5L NSS in the ED -Started on another 1L NSS in the ED, will allow this last 1L to run as he appears dehydrated -Will continue with q24h ceftriaxone while urine and blood cultures are in process -Monitor intake, output, and PVR's for retention -If he shows signs of retention could consider starting flomax -SQ heparin for DVT PPX -HH diet -AM CBC, CMP, Mag (2) Dizziness: -Appears to be due to orthostatic hypotension -Patient only experiences symptoms when standing -No symptoms of vertigo, no focal neuro defects, symptoms resolve when sitting -Fall precautions ordered, instructed patient to change positions slowly -Will obtain TTE tomorrow as he does not have a previous echo available -AM orthostatic vitals (3) Chronic kidney disease (CKD): -Cr noted to be 4.18 with BUN of 80 -Baseline appears to be near 2.6-2.7 per previous labs but it does not appear that he follows up consistently with outpatient providers -Likely due to UTI, no signs of obstruction/hydro on CT of the abd/pelvis -Monitor renal function after IV fluids (4) Urinary retention: -Follow PVR's to ensure he is not retaining -If patient is retaining and tamsulosin is restarted would recommend decreasing or discontinuing telmisartan to prevent further episodes or orthostasis (5) Total bilirubin, elevated: -Total bili of 1.3 with alk phos of 132 -AST/ALT WNL, no acute findings on CT of the abd/pelvis -No abd pain -Follow am CMP (6) Hypertension: -Currently stable -Holding telmisartan for now (7) CAD (coronary artery disease): -Continue aspirin (8) Acute kidney failure: Plan The patient was discussed with Dr. Mejia at the time of the admission Discharge Plan Discharge Items Patient Disposition: Home - Self-Care Reason For Visit: WEAKNESS, ABDOMINAL PAIN, UTI Discharge Diagnosis: 1. urinary tract infection - resolving 2. acute kidney injury - resolved 3. chronic kidney disease stage 4 - discharge creatinine level 2.6 4. enlarged prostate ("BPH" or benign prostatic hypertrophy) 5. dizzy spells - due to mild drop in blood pressure with standing Condition on Discharge: Good Activity: Resume your previous activity Lifting: Gradually increase as tolerated Bathing: No limitations Non-emergency contact: Primary Care Provider and Urologist Call non-emergency contact if: you have any medication questions, your pain is concerning for you and you have a fever Follow-up/Referrals: González Gibbs DO [Primary Care Provider] - 11/04/22 8:30 am Diet: Regular Addtl Attending Provider Instructions: Mr Reed, You were hospitalized for urinary tract infection as well as acute kidney injury. Acute kidney injury is when your creatinine (the kidney function level in the blood) rises. Your creatinine chey to a high of 4. This was likely brought on by dehydration. The creatinine improved with IV fluids. Your creatinine is now 2.6 which is your "baseline" kidney function level. You have been in the mid 2's for several years. Your urinary infection was treated with IV antibiotics. You mentioned that you have been having dizzy spells at home. This is likely due to a drop in blood pressure with standing. This is a common problem in senior adults. It can lead to falls and passing out. Recommendations - 1. antibiotics for urinary tract infection - cefdinir 300mg once daily x 10 days, first dose TODAY 11/02/2022. 2. you have an enlarged prostate. Under most circumstances we would start you on a medication called "flomax." However, flomax can cause a drop in blood pressure and worsen your dizziness. There is an alternative to flomax called "finasteride." Please talk with Dr Gibbs about potentially going on finasteride. 3. dizziness - * consider wearing compression stockings on a daily basis; knee-high stockings are fine * stay well-hydrated * HOLD your telmisartan for now * when you rise to a standing position use caution; if you feel dizzy immediately sit down or better yet lay down * if the dizziness persists over time there is medication available to treat it * if you continue with dizzy spells please talk with Dr Gibbs about this 4. again HOLD your telmisartan for now. Follow-up - see separate section Return to [facility] if - * you have recurrent fevers over 100 degrees * you have difficulty voiding / passing your urine * you have abdominal pains * you have severe diarrhea * you have severe dizziness or passing out spells * any other concerns It was our pleasure to care for you! -Dr Carballo Pending Studies at Discharge: No Stand-Alone Forms: My [facility], Smoking Cessation Medications and DC Order Prescriptions: New cefdinir 300 mg capsule 300 mg PO DAILY 10 Days Qty: 10 0RF Rx Instructions: first dose 11/02/22. Continued aspirin 81 mg tablet,chewable 81 mg PO DAILY multivitamin Tablet 1 tab PO QAM Held telmisartan 40 mg tablet 40 mg PO DAILY Qty: 90 3RF Hold Instructions: continue to hold UNLESS Dr Gibbs asks you to resume Discharge Orders: Discharge Order (Routine); Ordered 11/02/22 Ordered By: Jose Carballo Admission Data Admit Date/Time: 10/29/22 19:20 Attending Provider: Jose Carballo Admit Provider: Jose Mejia Primary Care Provider: González Gibbs Other Providers: Jose Mejia Other Interventions: Discharge Summary Assessment (RN) Last Done: 11/02/22 16:46 Coding Diagnoses UTI (urinary tract infection) N39.0 Dizziness R42 Chronic kidney disease (CKD) N18.9 Chronic kidney disease stage: unspecified stage Urinary retention R33.9 Total bilirubin, elevated R17 Hypertension I10 CAD (coronary artery disease) I25.10 Acute kidney failure N17.9
== END 2022-11-02 17:24 | disposition home or self-care (01) | DRG 690 ==
LOC: ED 14:58 → 3W 19:20 → SUATTDRO 19:20 → 3W 21:32